=== PATIENT | female | born 1960 | race Hispanic/Latino ===

== ENCOUNTER 2018-10-17 13:36 | Inpatient (IN) | payer MEDICARE ==
[2018-10-17] MEDS ORDERED: ZOFRAN IV ONE (13:51)
[2018-10-17] MEDS ORDERED: MORPHINE IV ONE (13:52)
--- NOTE | 2018-10-17 13:57 | Emergency Department Report ---
HPI - General Chief Complaint: GI Bleed Time Seen by Provider: 10/17/18 13:47 - HPI HPI: 58-year-old female presents to the emergency Department with complaints of back and leg pain, swallowing and rectal bleeding. The rectal bleeding is the main reason she came in and she says that has been going on for the past 1-2 months. However it has worsened recently. She says that when she goes to urinate and then stands up that bright red blood and sometimes clots from the rectum. She denies any rectal pain. However over the past week she complains of severe back and bilateral leg pain. The patient has a past medical history of COPD, chronic kidney disease with previous nephrectomy, PE/DVT on anticoagulation. She is a tobacco smoker. She also has a history of previous alcoholic gastritis however she denies any recent alcohol use she has a primary care physician through the [facility] system. ED Past Medical Hx - Past Medical History Previous Medical History?: Yes Hx Hypertension: Yes (takes clonidine) Hx Congestive Heart Failure: No Hx Diabetes: No Hx Deep Vein Thrombosis: Yes Hx Pulmonary Embolism: Yes Hx Asthma: No Hx COPD: Yes - Surgical History Past Surgical History?: Yes Additional Surgical History: Tonsilectomy - Social History Smoking Status: Current Every Day Smoker Substance Use Type: Alcohol - Medications Home Medications: Home Medications Medication Instructions Recorded Confirmed Last Taken Type Albuterol Sulfate [Ventolin Hfa] 18 gm IH PRN 10/17/18 10/17/18 Unknown History Dextran 70/Hypromellose/Pf 1 - 2 drop OP PRN 10/17/18 10/17/18 Unknown History [Artificial Tears Drops 1%/0.3%] Quetiapine Fumarate [Seroquel] 300 mg PO QHS 10/17/18 10/17/18 Unknown History Rivaroxaban [Xarelto] 20 mg PO QDAY 10/17/18 10/17/18 Unknown History Rosuvastatin Calcium [Crestor] 10 mg PO DAILY 10/17/18 10/17/18 Unknown History amLODIPine [Norvasc] 10 mg PO DAILY 10/17/18 10/17/18 Unknown History traZODone [Desyrel] 50 mg PO QHS 10/17/18 10/17/18 Unknown History ED Review of Systems ROS: Stated complaint: BACK PAIN/RECTAL BLEEDING Other details as noted in HPI Comment: All other systems reviewed and negative Constitutional: denies: chills, fever Eyes: denies: eye pain, vision change ENT: denies: ear pain, dental pain Respiratory: denies: cough, shortness of breath Cardiovascular: denies: chest pain, palpitations Gastrointestinal: other (rectal bleeding). denies: nausea, vomiting Genitourinary: denies: dysuria, discharge Musculoskeletal: back pain, arthralgia, myalgia Skin: denies: rash, lesions Neurological: denies: headache, weakness, numbness Physical Exam - Physical Exam Vital Signs: Vital Signs 10/17/18 13:46 Temperature 97.5 F L Pulse Rate 99 H Respiratory 22 Rate Blood Pressure 110/69 O2 Sat by Pulse 91 Oximetry Physical Exam: GENERAL: The patient is well-developed well-nourished. HEENT: Normocephalic. Atraumatic. Patient has moist mucous membranes. EYES: Extraocular motions are intact. Pupils are equal and reactive to light bilaterally. NECK: Supple. Trachea is midline. CHEST/LUNGS: Clear to auscultation. There is no respiratory distress noted. HEART/CARDIOVASCULAR: Regular. There is no tachycardia. There is no obvious murmur. ABDOMEN: Abdomen is soft. Mild generalized tenderness to palpation. Patient has normal bowel sounds. Obese habitus. SKIN: Skin is warm and dry. NEURO: The patient is awake, alert, and oriented. The patient is cooperative. The patient has no focal neurologic deficits. The patient has normal speech. MUSCULOSKELETAL: There is no tenderness or deformity. There is no limitation range of motion. There is no evidence of acute injury. RECTAL: There is a nonthrombosed hemorrhoid at the 6 o'clock position. Gross blood seen on examination that is positive on guaiac testing. ED Course Vital Signs 10/17/18 13:46 Temperature 97.5 F L Pulse Rate 99 H Respiratory 22 Rate Blood Pressure 110/69 O2 Sat by Pulse 91 Oximetry - Consultations Consultation #1: I spoke with the assembler [employer] commanding officer traffic division, Dr. lei, and he is aware of the intent for a GI consult secondary to the rectal bleeding on anticoagulation. 10/17/18 18:43 ED Medical Decision Making - Lab Data Result diagrams: 10/17/18 14:09 10/17/18 14:09 - Radiology Data Radiology results: report reviewed ABDOMINAL SERIES: History: Abdominal pain. Findings: No recent comparison. Single view of the chest demonstrates prominent bronchovascular markings in both lower lobes. Trace right pleural effusion is also suspected. Heart size is within normal limits. Supine and upright views of the abdomen demonstrate 1 or 2 mildly dilated loops of bowel in the left abdomen measuring up to 4.5 cm in diameter. No significant air-fluid levels are identified on the upright image. Surgical clips are noted in the left upper quadrant and left lower quadrant, correlate with history. An IVC filter is in position at the level of L3-4. IMPRESSION: A few mildly dilated loops of small bowel are identified in the left abdomen. A low-grade partial obstruction is difficult to exclude. Trace right pleural effusion. Transcribed By: TTR Dictated By: KOLBY GARRETT JR, MD Electronically Authenticated By: KOLBY GARRETT JR, MD Signed Date/Time: 10/17/18 1449 PROCEDURE: CT ABDOMEN PELVIS WO CON TECHNIQUE: Axial helical imaging through the abdomen and pelvis with sagittal and coronal reformatted images obtained. HISTORY: Abd pain, GI bleed, abnormal x-ray COMPARISONS: X-ray abdomen and pelvis also performed today. The report of that study is not available for review at the time of this dictation. FINDINGS: The lung bases are notable for pulmonary consolidation in the lower lobes bilaterally. Atelectasis versus infiltrates versus combination of both. There appears to be a small right pleural fluid collection. The liver, spleen, pancreas are unremarkable. The gallbladder is moderately distended and unremarkable. There are bilateral adrenal gland masses that measure approximately 2.5 cm in size. The Hounsfield units are most suggestive of adenomas. The left kidney is absent. The right kidney is hypertrophic but otherwise unremarkable. There is no evidence of hydronephrosis nor urinary tract calculi. The bowel is normal caliber. There is no evidence of pneumoperitoneum or free fluid. The abdominal aorta is normal caliber. There is no evidence of intra-abdominal adenopathy. Infrarenal IVC filter is present. The urinary bladder is mildly distended and unremarkable. The uterus and adnexa are unremarkable. The bony structures are notable for degenerative disc endplate change at the L5- S1 level and degenerative facet change in the lower lumbar spine. IMPRESSION: 1. No evidence of an acute intra-abdominal process. 2. Status post left nephrectomy. 3. Bilateral adrenal adenomas. 4. Infrarenal IVC filter. 5. Spondylitic changes lower lumbar spine. 6. Areas of atelectasis versus infiltrate both lung bases with small right pleural fluid collection. . This document is electronically signed by Dee Rubi MD., October 17 2018 05:35:00 PM ET Transcribed By: ED Dictated By: DEE RUBI MD Electronically Authenticated By: DEE RUBI MD Signed Date/Time: 10/17/18 8013 - Medical Decision Making Patient presents to the emergency department with a complaint of some rectal bleeding, abdominal discomfort. Patient's labs show a hemoglobin of 12, platelets of about 100. She has severe renal failure. She has a history of a nephrectomy from about 4 years ago but the previous labs that we have show no renal insufficiency at that time. On rectal examination she has a nonthrombosed hemorrhoid and some gross blood seen. Patient had some transient hypotension but that has improved. She will be admitted to the hospital for further evaluation, GI consult, renal consult, and has been accepted for admission by the hospitalist, Dr. Griffin. - Differential Diagnosis malignancy, diverticulosis, colitis, hemorrhoids Critical Care Time: No Critical care attestation.: If time is entered above; I have spent that time in minutes in the direct care of this critically ill patient, excluding procedure time. ED Disposition Clinical Impression: End stage renal disease GI bleed Qualifiers: GI bleed type/associated pathology: unspecified gastrointestinal hemorrhage type Qualified Code(s): K92.2 - Gastrointestinal hemorrhage, unspecified Disposition: OP ADMIT IP TO THIS HOSP Is pt being admited?: Yes Condition: Fair Time of Disposition: 18:45
[2018-10-17 14:36] LABS: Hemoglobin 12.2 gm/dl (10.1-14.3); Mean Corpuscular HGB Conc 34 % (30-34); Mean Corpuscular Volume 103 fl (79-97); Platelet Count 101 K/mm3 (140-440); Red Blood Count 3.51 M/mm3 (3.65-5.03); Red Cell Distribution Width 25.6 % (13.2-15.2)
[2018-10-17 14:44] LABS: INR 1.16 (0.87-1.13)
--- NOTE | 2018-10-17 14:53 | XRay Report ---
ABDOMINAL SERIES: History: Abdominal pain. Findings: No recent comparison. Single view of the chest demonstrates prominent bronchovascular markings in both lower lobes. Trace right pleural effusion is also suspected. Heart size is within normal limits. Supine and upright views of the abdomen demonstrate 1 or 2 mildly dilated loops of bowel in the left abdomen measuring up to 4.5 cm in diameter. No significant air-fluid levels are identified on the upright image. Surgical clips are noted in the left upper quadrant and left lower quadrant, correlate with history. An IVC filter is in position at the level of L3-4. IMPRESSION: A few mildly dilated loops of small bowel are identified in the left abdomen. A low-grade partial obstruction is difficult to exclude. Trace right pleural effusion.
[2018-10-17 14:54] LABS: Albumin 3.5 g/dL (3.9-5); Calcium 7.8 mg/dL (8.4-10.2)
--- NOTE | 2018-10-17 16:25 | History and Physical Report ---
History of Present Illness Chief complaint: Im bleeding, and History of present illness: 58 YO Female with HTN, MO, Obesity Hypoventilation, DVT/PE S/P IVC Filter Placement on Therapeutic Anticoagulation with Xarelto, COPD, Nicotine Dependence, RCC S/P Nephrectomy, Chronic Pain Syndrome, ETOH Abuse but denies any etoh use in past 6 months, ETOH Gastritis presents to ED for evaluation. Pt states that she has experienced rectal bleeding over the past 6 weeks with worsening symptoms over the past 2 weeks. Pt states that she sometimes passes blood clots from her rectum over the past 2 weeks. Pt unable to quantify the number of episodes. Pt also acknowledges leg weakness, and deconditioning. Pt is currently unable to conduct activities of daily living due to weakness. Pt also reports Orthopnea/PND, Decreased exercise tolerance, Shortness of Breath, edema, and "just not feeling well". EMS notified, and upon arrival the patient was found to be in distress, and transported to [facility]. Pt seen and evaluated in ED and found to have symptoms consistent with GI Bleed, CHF Decompensation, Hyponatremia Syndrome, Metabolic acidosis, as well Acute Renal Failure/ESRD, Acute Hypoxemic respiratory Failure. Pt initiated on supplemental oxygen and supportive care in ED with improvement in symptoms. Pt admitted to IMCU. Pt denies fever, chills, CP, Palpitations, NVD, Trauma, Skin rash, prolonged travel/immobility, unilateral leg swelling, calf pain, productive cough,ingestion of food/water from new/different sources. Cardiology consulted in ED, GI consulted in ED, Nephrology consulted in ED. Previous admission on reviewed. All listed medication reconciled at time of admission. Past History Past Medical History: COPD, DVT, hypertension, pulmonary embolism Past Surgical History: total knee replacement, Other (tubal ligation, IVC placement, Nephrectomy) Social history: , smoking Family history: hypertension Medications and Allergies Allergies Allergy/AdvReac Type Severity Reaction Status Date / Time [employer] Allergy Swelling Uncoded 03/22/14 15:42 IVP DYE Allergy Itching Uncoded 03/22/14 15:42 Home Medications Medication Instructions Recorded Confirmed Last Taken Type Albuterol Sulfate [Ventolin Hfa] 18 gm IH PRN 10/17/18 10/17/18 Unknown History Dextran 70/Hypromellose/Pf 1 - 2 drop OP PRN 10/17/18 10/17/18 Unknown History [Artificial Tears Drops 1%/0.3%] Quetiapine Fumarate [Seroquel] 300 mg PO QHS 10/17/18 10/17/18 Unknown History Rivaroxaban [Xarelto] 20 mg PO QDAY 10/17/18 10/17/18 Unknown History Rosuvastatin Calcium [Crestor] 10 mg PO DAILY 10/17/18 10/17/18 Unknown History amLODIPine [Norvasc] 10 mg PO DAILY 10/17/18 10/17/18 Unknown History traZODone [Desyrel] 50 mg PO QHS 10/17/18 10/17/18 Unknown History Review of Systems Constitutional: weakness, no weight loss, no weight gain, no fever, no sweats Ears, nose, mouth and throat: no ear pain, no ear discharge, no tinnitis, no decreased hearing, no nose pain, no nasal congestion Breasts: no change in shape, no swelling, no mass Cardiovascular: no chest pain, no orthopnea, no palpitations, no rapid/irregular heart beat, no edema, no syncope Respiratory: no cough, no cough with sputum, no shortness of breath Gastrointestinal: BRBPR, no abdominal pain, no vomiting, no diarrhea, no constipation Genitourinary Female: no pelvic pain, no flank pain, no menorrhagia, no dysuria Rectal: no pain, no incontinence, no bleeding Musculoskeletal: no neck stiffness, no neck pain, no shooting arm pain, no arm numbness/tingling, no low back pain, no leg numbness/tingling Integumentary: no rash, no pruritis, no redness, no sores, no wounds, no boils Neurological: no head injury, no transient paralysis, no paralysis, no numbness Psychiatric: no anxiety, no memory loss, no change in sleep habits, no sleep disturbances, no insomnia, no change in appetite, no suicidal ideation Endocrine: no cold intolerance, no heat intolerance, no polyphagia, no excessive thirst, no polydipsia Hematologic/Lymphatic: no easy bruising, no easy bleeding Allergic/Immunologic: no urticaria, no allergic rhinitis, no wheezing Exam - Constitutional Vitals: Temp Pulse Resp BP Pulse Ox 97.5 F L 91 H 14 107/68 96 10/17/18 13:46 10/17/18 15:17 10/17/18 15:17 10/17/18 15:17 10/17/18 15:17 General appearance: Present: mild distress - EENT Eyes: Present: PERRL ENT: hearing intact, clear oral mucosa - Neck Neck: Present: supple, normal ROM - Respiratory Respiratory effort: labored Respiratory: bilateral: diminished, rhonchi - Cardiovascular Heart Sounds: Present: S1 & S2. Absent: rub, click - Extremities Extremity abnormal: edema Peripheral Pulses: within normal limits - Abdominal General gastrointestinal: Present: soft, non-tender, non-distended, normal bowel sounds Female genitourinary: Present: normal - Integumentary Integumentary: Present: clear, warm, dry - Musculoskeletal Musculoskeletal: generalized weakness - Psychiatric Psychiatric: appropriate mood/affect, intact judgment & insight - Neurologic Neurologic: CNII-XII intact, moves all extremities Results - Labs CBC & Chem 7: 10/18/18 03:19 10/18/18 03:19 Labs: Abnormal lab results 10/17/18 10/17/18 10/17/18 Range/Units 14:09 14:09 14:09 RBC 3.51 L (3.65-5.03) M/mm3 MCV 103 H (79-97) fl MCH 35 H (28-32) pg RDW 25.6 H (13.2-15.2) % Plt Count 101 L (140-440) K/mm3 PT 15.5 H (12.2-14.9) Sec. INR 1.16 H (0.87-1.13) Sodium 135 L (137-145) mmol/L Chloride 95.2 L (98-107) mmol/L Carbon Dioxide 16 L (22-30) mmol/L BUN 45 H (7-17) mg/dL Creatinine 6.7 H (0.7-1.2) mg/dL Glucose 108 H (65-100) mg/dL Calcium 7.8 L (8.4-10.2) mg/dL NT-Pro-B Natriuret Pep (0-900) pg/mL Total Protein 5.9 L (6.3-8.2) g/dL Albumin 3.5 L (3.9-5) g/dL Lipase 66 H (13-60) units/L 10/17/18 Range/Units 14:09 RBC (3.65-5.03) M/mm3 MCV (79-97) fl MCH (28-32) pg RDW (13.2-15.2) % Plt Count (140-440) K/mm3 PT (12.2-14.9) Sec. INR (0.87-1.13) Sodium (137-145) mmol/L Chloride (98-107) mmol/L Carbon Dioxide (22-30) mmol/L BUN (7-17) mg/dL Creatinine (0.7-1.2) mg/dL Glucose (65-100) mg/dL Calcium (8.4-10.2) mg/dL NT-Pro-B Natriuret Pep 1582 H (0-900) pg/mL Total Protein (6.3-8.2) g/dL Albumin (3.9-5) g/dL Lipase (13-60) units/L Assessment and Plan - Patient Problems (1) CHF (congestive heart failure) Current Visit: Yes Status: Acute Qualifiers: Heart failure type: systolic Heart failure chronicity: acute Qualified Code(s): I50.21 - Acute systolic (congestive) heart failure Plan to address problem: Admit to IMCU, Cardiology consulted in ED, Strict I/O, daily weight, BNP, Echo, chest x ray, pulse oximetry, afterload reduction, blood pressure control, monitor uop q shift, monitor fluid balance, diuresis as tolerated. (2) Acidosis Current Visit: Yes Status: Acute Plan to address problem: supportive care, gentle IVF resuscitation as tolerated, encourage limited free water intake, repeat bmp, treat renal failure (3) GI bleed Current Visit: Yes Status: Acute Qualifiers: GI bleed type/associated pathology: unspecified gastrointestinal hemorrhage type Qualified Code(s): K92.2 - Gastrointestinal hemorrhage, unspecified Plan to address problem: GI consulted in ED, IV ppi therapy, no transfusion at this time, HGB stable, repeat cbc. endoscopy as per GI team. (4) Alcoholic gastritis Current Visit: No Status: Acute Qualifiers: Gastritis bleeding: presence of bleeding unspecified Plan to address problem: IV ppi therapy, ETOh cessation, supportive care, CT Abdomen pelvis, pain control, diet as tolerated (5) Hyponatremia syndrome Current Visit: Yes Status: Acute Plan to address problem: gentil IVF resuscitation therapy, repeat serum sodium, monitor uop q shift, nephrology consulted. (6) ARF (acute renal failure) with tubular necrosis Current Visit: Yes Status: Acute Plan to address problem: Urine electrolytes, Renal ultrasound, monitor uop q shift, nephrology consulted, repeat bmp, monitor serum creatnine. (7) ARF (acute respiratory failure) Current Visit: Yes Status: Acute Qualifiers: Respiratory failure complication: hypoxia Qualified Code(s): J96.01 - Acute respiratory failure with hypoxia Plan to address problem: Supplemental oxygen, nebulizer therapy, chest x ray, pulse oximetry, NIPPV as clinically indicated, (8) Debility Current Visit: Yes Status: Acute Plan to address problem: PT consulted, CAse management consulted for DC Planning/placement (9) UTI (urinary tract infection) Current Visit: Yes Status: Acute Qualifiers: Encounter type: initial encounter Plan to address problem: IV antibiotic therapy, urinalysis(pending at time of admission), CBC (10) DVT prophylaxis Current Visit: Yes Status: Acute Plan to address problem: SCD to BLE while in bed, Hold chemical prophylaxis for acute GI bleeding
[2018-10-17] MEDS ORDERED: PROVENTIL IH PRN (16:26)
[2018-10-17] MEDS ORDERED: SODIUM CHLORIDE FLUSH SYRINGE 10 ML IV PRN (16:26)
[2018-10-17] MEDS ORDERED: DEXTRAN OP SCH (16:30)
[2018-10-17] MEDS ORDERED: HYPROMELLOSE OP SCH (16:30)
[2018-10-17 17:17] LABS: Basophils % (Manual) 0 % (0.0-1.8); Eosinophils % (Manual) 0 % (0.0-4.3); Total Cells Counted 100
[2018-10-17 17:18] LABS: Anisocytosis 2+; Ovalocytes Few; Platelet Estimate Appears Decreased
--- NOTE | 2018-10-17 17:36 | Cat Scan Report ---
PROCEDURE: CT ABDOMEN PELVIS WO CON TECHNIQUE: Axial helical imaging through the abdomen and pelvis with sagittal and coronal reformatte d images obtained. HISTORY: Abd pain, GI bleed, abnormal x-ray COMPARISONS: X-ray abdomen and pelvis also performed today. The report of that study is not available for review at the time of this dictation. FINDINGS: The lung bases are notable for pulmonary consolidation in the lower lobes bilaterally. Atelectasis ve rsus infiltrates versus combination of both. There appears to be a small right pleural fluid collection. The liver, spleen, pancreas are unremarkable. The gallbladder is moderately distended and unremarkable. There are bilateral adrenal gland masses that measure approximately 2.5 cm in size. The Hounsfield un its are most suggestive of adenomas. The left kidney is absent. The right kidney is hypertrophic but otherwise unremarkable. There is no evidence of hydronephrosis n or urinary tract calculi. The bowel is normal caliber. There is no evidence of pneumoperitoneum or free fluid. The abdominal aorta is normal caliber. There is no evidence of intra-abdominal adenopathy. Infrarenal IVC filter is present. The urinary bladder is mildly distended and unremarkable. The uterus and adnexa are unremarkable. The bony structures are notable for degenerative disc endplate change at the L5-S1 level and degenera tive facet change in the lower lumbar spine. IMPRESSION: 1. No evidence of an acute intra-abdominal process. 2. Status post left nephrectomy. 3. Bilateral adrenal adenomas. 4. Infrarenal IVC filter. 5. Spondylitic changes lower lumbar spine. 6. Areas of atelectasis versus infiltrate both lung bases with small right pleural fluid collection. . This document is electronically signed by Dee Rubi MD., October 17 2018 05:35:00 PM ET
[2018-10-17 17:41] LABS: Free T4 (Free Thyroxine) 0.52 ng/dL (0.76-1.46); Hepatitis B Surface Antigen Non-Reactive (Negative); Hepatitis C Virus Antibody Non-Reactive (NonReactive)
--- NOTE | 2018-10-17 17:47 | Gastroenterology Consultation ---
History of Present Illness - Reason for Consult Consult date: 10/17/18 GI Bleed Requesting physician: JHOAN VIGIL - History of Present Illness The patient is a 58 yo female who came to the ER for 1-3 months of rectal bleeding, and weakness. Her hct is WNL here, but she had gross blood in her stools on exam. She has a hx of GI bleeding in 2013 (EGD showed antral ulcers) but a colonoscopy last year at [facility] was unremarkable. She does take xarelto daily for a hx of DVT/PE, and she is also a heavy drinker, and in addition takes ibuprofen daily, without GI prophylaxis. She denies hematemesis, but does have intermittent dyspepsia, for which she takes OTC zantac, tums, etc. She also has acute renal insuff on chronic kidney disease, and presumably has coagulopathy from that as well. She is a heavy smoker with COPD, and feels "swollen all over" with moderate edema. She has no severe abdominal pain, but does feel bloated. Past History Past Medical History: cancer (RCC, s/p nephrectomy; ), COPD, DVT, hypertension, pulmonary embolism (with IVC in place), other (Psychiatric disorder NOS) Past Surgical History: tonsillectomy, Other (Nephrectomy) Social history: smoking, alcohol abuse Family history: no significant family history Medications and Allergies Allergies Allergy/AdvReac Type Severity Reaction Status Date / Time TORRIE INHIBITOR Allergy Swelling Uncoded 03/22/14 15:42 IVP DYE Allergy Itching Uncoded 03/22/14 15:42 Home Medications Medication Instructions Recorded Confirmed Last Taken Type Albuterol Sulfate [Ventolin Hfa] 18 gm IH PRN 10/17/18 10/17/18 Unknown History Dextran 70/Hypromellose/Pf 1 - 2 drop OP PRN 10/17/18 10/17/18 Unknown History [Artificial Tears Drops 1%/0.3%] Quetiapine Fumarate [Seroquel] 300 mg PO QHS 10/17/18 10/17/18 Unknown History Rivaroxaban [Xarelto] 20 mg PO QDAY 10/17/18 10/17/18 Unknown History Rosuvastatin Calcium [Crestor] 10 mg PO DAILY 10/17/18 10/17/18 Unknown History amLODIPine [Norvasc] 10 mg PO DAILY 10/17/18 10/17/18 Unknown History traZODone [Desyrel] 50 mg PO QHS 10/17/18 10/17/18 Unknown History Active Meds: Active Medications Albuterol (Proventil) 2.5 mg IH Q3HRT PRN PRN Reason: Shortness Of Breath Amlodipine Besylate (Norvasc) 10 mg PO DAILY [facility] Atorvastatin Calcium (Lipitor) 20 mg PO QHS [facility] Miscellaneous Medication (Dextran 70/Hypromellose/Pf [Artificial Tears Drops 1%/0.3%]) 1 drop OP PRN [facility] Pantoprazole Sodium (Protonix) 40 mg IV DAILY [facility] Quetiapine Fumarate (Seroquel) 300 mg PO QHS [facility] Sodium Chloride (Sodium Chloride Flush Syringe 10 Ml) 10 ml IV BID [facility] Sodium Chloride (Sodium Chloride Flush Syringe 10 Ml) 10 ml IV PRN PRN PRN Reason: LINE FLUSH Trazodone HCl (Desyrel) 50 mg PO QHS [facility] I HAVE REVIEWED AND RECONCILED MEDICATIONS Review of Systems - Review of Systems All systems: negative (as noted in the HPI) Exam - Constitutional Vital Signs: Temp Pulse Resp BP Pulse Ox 97.5 F L 91 H 14 107/68 96 10/17/18 13:46 10/17/18 15:17 10/17/18 15:17 10/17/18 15:17 10/17/18 15:17 General appearance: mild distress ((respiratory)) - EENT Eyes: PERRL, EOM intact ENT: hearing intact, clear oral mucosa, poor dentition, no thrush - Neck Neck: supple, normal ROM - Respiratory Respiratory effort: normal Respiratory: bilateral: wheezing - Cardiovascular Rhythm: regular Heart Sounds: Present: S1 & S2 Extremities: no ischemia Extremity abnormal: edema (1+ dependent) - Gastrointestinal General gastrointestinal: Present: soft, non-tender, non-distended - Integumentary Integumentary: Present: clear, warm, dry - Neurologic Neurological: alert and oriented x3 - Labs CBC & Chem 7: 10/17/18 14:09 10/17/18 14:09 Lab Results: Laboratory Results - last 24 hr 10/17/18 10/17/18 10/17/18 14:09 14:09 14:09 WBC 5.1 RBC 3.51 L Hgb 12.2 Hct 36.0 MCV 103 H MCH 35 H MCHC 34 RDW 25.6 H Plt Count 101 L Add Manual Diff Complete Total Counted 100 Seg Neuts % (Manual) 74.0 H Band Neutrophils % 0 Lymphocytes % (Manual) 14.0 Reactive Lymphs % (Man) 1.0 Monocytes % (Manual) 10.0 H Eosinophils % (Manual) 0 Basophils % (Manual) 0 Metamyelocytes % 1.0 Myelocytes % 0 Promyelocytes % 0 Blast Cells % 0 Nucleated RBC % Not Reportable Seg Neutrophils # Man 3.8 Band Neutrophils # 0.0 Lymphocytes # (Manual) 0.7 L Abs React Lymphs (Man) 0.1 Monocytes # (Manual) 0.5 Eosinophils # (Manual) 0.0 Basophils # (Manual) 0.0 Metamyelocytes # 0.1 Myelocytes # 0.0 Promyelocytes # 0.0 Blast Cells # 0.0 WBC Morphology Not Reportable Hypersegmented Neuts Not Reportable Hyposegmented Neuts Not Reportable Hypogranular Neuts Not Reportable Smudge Cells Not Reportable Toxic Granulation Not Reportable Toxic Vacuolation Not Reportable Dohle Bodies Not Reportable Pelger-Huet Anomaly Not Reportable Cece Rods Not Reportable Platelet Estimate Appears decreased Clumped Platelets Not Reportable Plt Clumps, EDTA Not Reportable Large Platelets Not Reportable Giant Platelets Not Reportable Platelet Satelliting Not Reportable Plt Morphology Comment Not Reportable RBC Morphology Not Reportable Dimorphic RBCs Not Reportable Polychromasia Not Reportable Hypochromasia Not Reportable Poikilocytosis Not Reportable Anisocytosis 2+ Microcytosis Not Reportable Macrocytosis Not Reportable Spherocytes Not Reportable Pappenheimer Bodies Not Reportable Sickle Cells Not Reportable Target Cells Not Reportable Tear Drop Cells Not Reportable Ovalocytes Few Helmet Cells Not Reportable [place] Bodies Not Reportable [place] Rings Not Reportable Tish Cells Not Reportable Bite Cells Not Reportable Crenated Cell Not Reportable Elliptocytes Not Reportable Acanthocytes (Spur) Not Reportable Rouleaux Not Reportable Hemoglobin C Crystals Not Reportable Schistocytes Not Reportable Malaria parasites Not Reportable Bigg Bodies Not Reportable Hem Pathologist Commnt No PT 15.5 H INR 1.16 H APTT 28.0 Sodium 135 L Potassium 3.6 Chloride 95.2 L Carbon Dioxide 16 L Anion Gap 27 BUN 45 H Creatinine 6.7 H Estimated GFR 6 BUN/Creatinine Ratio 7 Glucose 108 H Calcium 7.8 L Total Bilirubin 0.50 AST 17 ALT 10 Alkaline Phosphatase 81 Troponin T NT-Pro-B Natriuret Pep Total Protein 5.9 L Albumin 3.5 L Albumin/Globulin Ratio 1.5 Lipase 66 H TSH Free T4 Hepatitis A IgM Ab Hep Bs Antigen Hep B Core IgM Ab Hepatitis C Antibody Blood Type Antibody Screen 10/17/18 10/17/18 10/17/18 14:09 14:09 14:09 WBC RBC Hgb Hct MCV MCH MCHC RDW Plt Count Add Manual Diff Total Counted Seg Neuts % (Manual) Band Neutrophils % Lymphocytes % (Manual) Reactive Lymphs % (Man) Monocytes % (Manual) Eosinophils % (Manual) Basophils % (Manual) Metamyelocytes % Myelocytes % Promyelocytes % Blast Cells % Nucleated RBC % Seg Neutrophils # Man Band Neutrophils # Lymphocytes # (Manual) Abs React Lymphs (Man) Monocytes # (Manual) Eosinophils # (Manual) Basophils # (Manual) Metamyelocytes # Myelocytes # Promyelocytes # Blast Cells # WBC Morphology Hypersegmented Neuts Hyposegmented Neuts Hypogranular Neuts Smudge Cells Toxic Granulation Toxic Vacuolation Dohle Bodies Pelger-Huet Anomaly Cece Rods Platelet Estimate Clumped Platelets Plt Clumps, EDTA Large Platelets Giant Platelets Platelet Satelliting Plt Morphology Comment RBC Morphology Dimorphic RBCs Polychromasia Hypochromasia Poikilocytosis Anisocytosis Microcytosis Macrocytosis Spherocytes Pappenheimer Bodies Sickle Cells Target Cells Tear Drop Cells Ovalocytes Helmet Cells [place] Bodies [place] Rings [place] Cells Bite Cells Crenated Cell Elliptocytes Acanthocytes (Spur) Rouleaux Hemoglobin C Crystals Schistocytes Malaria parasites Bigg Bodies Hem Pathologist Commnt PT INR APTT Sodium Potassium Chloride Carbon Dioxide Anion Gap BUN Creatinine Estimated GFR BUN/Creatinine Ratio Glucose Calcium Total Bilirubin AST ALT Alkaline Phosphatase Troponin T < 0.010 NT-Pro-B Natriuret Pep 1582 H Total Protein Albumin Albumin/Globulin Ratio Lipase TSH 1.450 Free T4 0.52 L Hepatitis A IgM Ab Non-reactive Hep Bs Antigen Non-reactive Hep B Core IgM Ab Non-reactive Hepatitis C Antibody Non-reactive Blood Type A POSITIVE Antibody Screen Negative Assessment and Plan - Patient Problems (1) GI bleed Current Visit: Yes Status: Acute Plan to address problem: - Likely recurrent PUD given smoking/NSAID abuse but also gastritis or varices possible given hx of EtOH (no gross EV seen on CT). - Will place on daily protonix, and d/c xarelto/ibuprofen. - EGD tomorrow pending renal status/volume overload. - Transfuse as needed. - Keep NPO for now given possible EGD overnight if decompensates. (2) Alcohol abuse Current Visit: Yes Status: Acute (3) End stage renal disease Current Visit: Yes Status: Acute
[2018-10-17] MEDS ORDERED: PERCOCET 5/325 PO ONE (19:34)
[2018-10-17 19:42] LABS: Creatinine,Urine 137.6 mg/dL (0.1-20.0)
[2018-10-17] MEDS ORDERED: PERCOCET 5/325 ONE (19:44)
[2018-10-17 19:58] LABS: Bacteria,Urine 2+ /HPF (Negative); Bilirubin,Urine NEG (Negative); Blood,Urine SM (Negative); Color,Urine Amber (Yellow); Urobilinogen,Urine < 2.0 mg/dL (<2.0)
[2018-10-17 20:01] LABS: WBC,Urine > 182.0 /HPF (0.0-6.0)
[2018-10-17] MEDS ORDERED: NON-FORMULARY (Quetiapine Fumarate [Seroquel] 300 MG) PO SCH (22:00)
[2018-10-17] MEDS ORDERED: PROTONIX IV SCH (22:00)
[2018-10-17] MEDS: DESYREL PO SCH (23:30)
[2018-10-17] MEDS ORDERED: DESYREL PO ONE (23:33)
[2018-10-17] MEDS: SODIUM CHLORIDE FLUSH SYRINGE 10 ML IV SCH (23:44)
[2018-10-18] MEDS ORDERED: ROBINUL ONE (00:24)
[2018-10-18 03:38] LABS: Hematocrit 32.3 % (30.3-42.9); Hemoglobin 10.8 gm/dl (10.1-14.3); Mean Corpuscular HGB Conc 34 % (30-34); Mean Corpuscular Volume 103 fl (79-97); Red Blood Count 3.14 M/mm3 (3.65-5.03)
[2018-10-18 03:43] LABS: Platelet Count 87 K/mm3 (140-440); Red Cell Distribution Width 25.1 % (13.2-15.2)
[2018-10-18 05:39] LABS: Basophils % (Manual) 0 % (0.0-1.8); Eosinophils % (Manual) 0 % (0.0-4.3); Total Cells Counted 100
[2018-10-18 05:40] LABS: Anisocytosis 1+; Platelet Estimate Appears Decreased
--- NOTE | 2018-10-18 07:11 | Consultation ---
History of Present Illness - Reason for Consult Consult date: 10/18/18 acute renal failure, chronic renal failure - History of Present Illness The patient is 58 YO female with history significant for Obesity, HTN, COPD, DVT / PE s/p IVC filter on Xarelto, Kidney cancer s/p left nephrectomy, Tobacco smoking, Chronic Pain Syndrome, ETOH Abuse and CKD who presented with complaints of rectal bleed intermitently for the past few months. She also reports having chronic back pain. Patient admits using NSAIDs. Denies N, V, D, fever, chills, dysuria, hematuria, abd pain, dizziness, syncope, cp, sob, leg swelling or jaundice. Smokes about 1/2 pack of cigarettes and drinks pint of Vodka atleast every other day. Creatinine was 6.7 with bicarb 16 on admission. Previous creatinine in 2013 was normal at 0.9. Nephrology was consulted for further evaluation. Past History Past Medical History: COPD, DVT, hypertension, pulmonary embolism Past Surgical History: total knee replacement, Other (tubal ligation, IVC placement, Nephrectomy) Social history: , smoking Family history: hypertension Medications and Allergies Allergies Allergy/AdvReac Type Severity Reaction Status Date / Time TORRIE INHIBITOR Allergy Swelling Uncoded 03/22/14 15:42 IVP DYE Allergy Itching Uncoded 03/22/14 15:42 Home Medications Medication Instructions Recorded Confirmed Last Taken Type Albuterol Sulfate [Ventolin Hfa] 18 gm IH PRN 10/17/18 10/17/18 Unknown History Dextran 70/Hypromellose/Pf 1 - 2 drop OP PRN 10/17/18 10/17/18 Unknown History [Artificial Tears Drops 1%/0.3%] Quetiapine Fumarate [Seroquel] 300 mg PO QHS 10/17/18 10/17/18 Unknown History Rivaroxaban [Xarelto] 20 mg PO QDAY 10/17/18 10/17/18 Unknown History Rosuvastatin Calcium [Crestor] 10 mg PO DAILY 10/17/18 10/17/18 Unknown History amLODIPine [Norvasc] 10 mg PO DAILY 10/17/18 10/17/18 Unknown History traZODone [Desyrel] 50 mg PO QHS 10/17/18 10/17/18 Unknown History Active Meds: Active Medications Albuterol (Proventil) 2.5 mg IH Q3HRT PRN PRN Reason: Shortness Of Breath Atorvastatin Calcium (Lipitor) 20 mg PO QHS [facility] Last Admin: 10/17/18 23:30 Dose: 20 mg Documented by: Ceftriaxone Sodium (Rocephin/Ns 1 Gm/50 Ml) 1 gm in 50 mls @ 100 mls/hr IV Q24HR [facility]; Protocol Miscellaneous Medication (Dextran 70/Hypromellose/Pf [Artificial Tears Drops 1%/0.3%]) 1 drop OP PRN [facility] Pantoprazole Sodium (Protonix) 40 mg IV DAILY [facility] Pneumococcal Polyvalent Vaccine (Pneumovax 23) 0.5 ml IM .ONCE ONE Stop: 10/18/18 12:01 Quetiapine Fumarate (Seroquel) 100 mg PO QHS [facility] Quetiapine Fumarate (Seroquel) 200 mg PO QHS [facility] Sodium Chloride (Sodium Chloride Flush Syringe 10 Ml) 10 ml IV BID [facility] Last Admin: 10/17/18 23:44 Dose: 10 ml Documented by: Sodium Chloride (Sodium Chloride Flush Syringe 10 Ml) 10 ml IV PRN PRN PRN Reason: LINE FLUSH Trazodone HCl (Desyrel) 50 mg PO QHS [facility] Last Admin: 10/17/18 23:30 Dose: 50 mg Documented by: Review of Systems Constitutional: no weight loss, no weight gain, no fever, no chills, no anorexia, no poor appetite Breasts: deferred Cardiovascular: no chest pain, no orthopnea, no edema, no syncope, no lighthe adedness, no shortness of breath, no dyspnea on exertion, no leg edema Respiratory: no cough, no hemoptysis, no shortness of breath, no dyspnea on exertion Gastrointestinal: hematochezia, no abdominal pain, no nausea, no vomiting, no diarrhea, no hematemesis Genitourinary Female: no dysuria, no hematuria Rectal: bleeding Musculoskeletal: low back pain, no shooting leg pain, no redness of joints, no gait dysfunction, no prior amputations Integumentary: no rash, no wounds, no jaundice Neurological: no paralysis, no weakness, no headaches, no convulsions, no change in speech, no change in mentation, no confusion, no memory loss, no motor disturbance, no double vision, no loss of vision Exam - Vital Signs Vital signs: Vital Signs Temp Pulse Resp BP Pulse Ox 97.5 F L 99 H 22 110/69 91 10/17/18 13:46 10/17/18 13:46 10/17/18 13:46 10/17/18 13:46 10/17/18 13:46 - General Appearance General appearance: well-developed, well-nourished, appears stated age, obese, other (not in distress) EENT: ATNC, PERRL, hearing intact, vision intact Neck: Present: neck supple, trachea midline Respiratory: Clear to Ascultation Heart: regular, S1S2 Gastrointestinal: Present: normoactive bowel sounds, obese. Absent: tenderness, distended Integumentary: no rash, warm and dry Neurologic: no focal deficit, no asterixis, alert and oriented x3 Musculoskeletal: Present: other (no edema) Results - Lab Results 10/18/18 03:19 10/18/18 03:19 Most recent lab results Calcium 8.0 mg/dL (8.4-10.2) L 10/18/18 03:19 Phosphorus 6.00 mg/dL (2.5-4.5) H 10/18/18 03:19 Magnesium 1.40 mg/dL (1.7-2.3) L 10/18/18 03:19 Urine Creatinine 137.6 mg/dL (0.1-20.0) H 10/17/18 19:30 Urine Sodium 30 mmol/L 10/17/18 19:30 - Image Kidney/bladder ultrasound: other Assessment and Plan 1. Acute kidney injury: Likely vasomotor SULY superimposed on CKD. Unilateral kidney Continue IV fluids. Urine studies results noted. CT abdomen was negative for hydronephrosis. Likely advanced CKD. Monitor renal function. Renal prognosis is guarded to poor. Avoid nephrotoxic agents. Meds dosage based on GFR. Records from [facility] requested. 2. FEN: Metabolic acidosis. Continue IV fluids. 3. GI bleed: Followed by GI. 4. H/o DVT / PE: Monitor. 5. H/o alcohol abuse.
[2018-10-18] MEDS ORDERED: K-DUR PO NR (08:00)
[2018-10-18] MEDS ORDERED: ISOPTO TEARS 0.5% OU PRN (08:00)
[2018-10-18] MEDS ORDERED: MAGNESIUM SULFATE 2GM/50ML 2 GM/50 ML BAG IV ONE (08:00)
[2018-10-18] MEDS ORDERED: PROTONIX IV SCH (10:00)
[2018-10-18] MEDS ORDERED: NORVASC PO SCH (10:00)
[2018-10-18] MEDS ORDERED: NON-FORMULARY (Rosuvastatin Calcium [Crestor] 10 MG) PO SCH (10:00)
[2018-10-18] MEDS ORDERED: AFLURIA QUAD 2018-2019 SYRINGE IM ONE (12:00)
[2018-10-18] MEDS ORDERED: PNEUMOVAX 23 IM ONE (12:00)
[2018-10-18] MEDS: NACL 0.9% 1000 ML 1,000 ML IV SCH ×2 (14:15→16:56)
[2018-10-18] MEDS ORDERED: MORPHINE IV ONE (14:17)
[2018-10-18] MEDS ORDERED: WATER FOR IRRIG STERILE IR ONE (14:33)
--- NOTE | 2018-10-18 14:47 | Consultation ---
History of Present Illness Consult date: 10/18/18 Consult reason: congestive heart failure History of present illness: This is a 58 year old woman with a history of COPD, chronic kidney disease with previous nephrectomy, PE/DVT on Xarelto for oral anticoagulation. Patient presented with complaints of lower GI bleed, back pain and is admitted for further evaluation. GI workup is currently in progress. A cardiac consultation was requested for CHF. Patient denies a prior cardiac history and has not had any recent cardiac workup. There were no reports of unusual shortness of breath, palpitations or lower extremity edema. A chest x- ray reports no evidence of interstitial edema. Past History Past Medical History: COPD, DVT, hypertension, pulmonary embolism Past Surgical History: total knee replacement, Other (tubal ligation, IVC placement, Nephrectomy) Social history: , smoking Family history: hypertension Medications and Allergies Allergies Allergy/AdvReac Type Severity Reaction Status Date / Time TORRIE INHIBITOR Allergy Swelling Uncoded 03/22/14 15:42 IVP DYE Allergy Itching Uncoded 03/22/14 15:42 Home Medications Medication Instructions Recorded Confirmed Last Taken Type Albuterol Sulfate [Ventolin Hfa] 18 gm IH PRN 10/17/18 10/17/18 Unknown History Dextran 70/Hypromellose/Pf 1 - 2 drop OP PRN 10/17/18 10/17/18 Unknown History [Artificial Tears Drops 1%/0.3%] Quetiapine Fumarate [Seroquel] 300 mg PO QHS 10/17/18 10/17/18 Unknown History Rivaroxaban [Xarelto] 20 mg PO QDAY 10/17/18 10/17/18 Unknown History Rosuvastatin Calcium [Crestor] 10 mg PO DAILY 10/17/18 10/17/18 Unknown History amLODIPine [Norvasc] 10 mg PO DAILY 10/17/18 10/17/18 Unknown History traZODone [Desyrel] 50 mg PO QHS 10/17/18 10/17/18 Unknown History Active Meds: Active Medications Albuterol (Proventil) 2.5 mg IH Q3HRT PRN PRN Reason: Shortness Of Breath Artificial Tears (Isopto Tears 0.5%) 1 drops OU Q6H PRN PRN Reason: Dry Eye(s) Atorvastatin Calcium (Lipitor) 20 mg PO QHS [facility] Last Admin: 10/17/18 23:30 Dose: 20 mg Documented by: Ceftriaxone Sodium (Rocephin/Ns 1 Gm/50 Ml) 1 gm in 50 mls @ 100 mls/hr IV Q24HR [facility]; Protocol Sodium Chloride (Nacl 0.9% 1000 Ml) 1,000 mls @ 50 mls/hr IV DIRECT [facility] Last Admin: 10/18/18 14:15 Dose: 50 mls/hr Documented by: Pantoprazole Sodium (Protonix) 40 mg IV DAILY [facility] Potassium Chloride (K-Dur) 40 meq PO ONCE NR Stop: 10/19/18 10:00 Quetiapine Fumarate (Seroquel) 100 mg PO QHS [facility] Quetiapine Fumarate (Seroquel) 200 mg PO QHS [facility] Sodium Chloride (Sodium Chloride Flush Syringe 10 Ml) 10 ml IV BID [facility] Last Admin: 10/17/18 23:44 Dose: 10 ml Documented by: Sodium Chloride (Sodium Chloride Flush Syringe 10 Ml) 10 ml IV PRN PRN PRN Reason: LINE FLUSH Trazodone HCl (Desyrel) 50 mg PO QHS [facility] Last Admin: 10/17/18 23:30 Dose: 50 mg Documented by: Physical Examination Vital Signs Temp Pulse Resp BP Pulse Ox 97.5 F L 99 H 22 110/69 91 10/17/18 13:46 10/17/18 13:46 10/17/18 13:46 10/17/18 13:46 10/17/18 13:46 General appearance: no acute distress HEENT: Positive: PERRL Neck: Positive: trachea midline Cardiac: Positive: Reg Rate and Rhythm Lungs: Positive: Decreased Breath Sounds Neuro: Positive: Grossly Intact Results 10/18/18 03:19 10/18/18 03:19 Cardiac Enzymes 10/17/18 Range/Units 14:09 AST 17 (5-40) units/L Coagulation 10/17/18 Range/Units 14:09 APTT 28.0 (24.2-36.6) Sec. CBC 10/18/18 Range/Units 03: WBC 4.4 L (4.5-11.0) K/mm3 RBC 3.14 L (3.65-5.03) M/mm3 Hgb 10.8 (10.1-14.3) gm/dl Hct 32.3 (30.3-42.9) % Plt Count 87 L (140-440) K/mm3 Comprehensive Metabolic Panel 10/17/18 10/18/18 Range/Units 14:09 03:19 Sodium 135 L 134 L (137-145) mmol/L Potassium 3.6 3.1 L (3.6-5.0) mmol/L Chloride 95.2 L 99.3 (98-107) mmol/L Carbon Dioxide 16 L 20 L (22-30) mmol/L BUN 45 H 46 H (7-17) mg/dL Creatinine 6.7 H 6.8 H (0.7-1.2) mg/dL Glucose 108 H 74 (65-100) mg/dL Calcium 7.8 L 8.0 L (8.4-10.2) mg/dL AST 17 (5-40) units/L ALT 10 (7-56) units/L Alkaline Phosphatase 81 (35-129) units/L Total Protein 5.9 L (6.3-8.2) g/dL Albumin 3.5 L (3.9-5) g/dL Assessment and Plan Acute GI bleed Chronic renal disease with previous nephrectomy PE/DVT on Xarelto for oral anticoagulation Hx of COPD
[2018-10-18] MEDS ORDERED: DIPRIVAN 10 MG/ML IV ONE (15:00)
--- NOTE | 2018-10-18 15:16 | Post Operative Note ---
Pre-op diagnosis: GI Bleed Post-op diagnosis: other (Gastritis/duodenitis) Findings: 1. No blood/clots active 2. Severe erosive antral gastritis and duodenitis, with friability - Cold bx of antrum - Likely source of anemia 3. No varices Procedure: EGD with cold biopsy Anesthesia: MAC Surgeon: RIKA BUSCH Estimated blood loss: minimal Pathology: list (1. Gastric antrum) Specimen disposition: to lab Condition: stable Disposition: floor (Recs: 1. Continue to hold xarelto until 10/20/2018. 2. D/c all NSAIDs, including ibuprofen. 3. MVI and protonix daily. 4. OK to advance diet to regular. 5. Lesions would be low risk to re-bleed; OK to d/c home when hct stable and cleared by Cards/IMS.)
--- NOTE | 2018-10-18 15:28 | Anesthesia Day of Surgery ---
Anesthesia Day of Surgery - Day of Surgery Patient Examined: Yes Patient H&P Reviewed: Yes Patient is NPO: Yes Beta Blockers: No
--- NOTE | 2018-10-18 15:29 | Anesthesia Consultation ---
Anesthesia Consult and Med Hx Date of service: 10/18/18 - Airway Anesthetic Teeth Evaluation: Good ROM Head & Neck: Adequate Mental/Hyoid Distance: Adequate Mallampati Class: Class III Intubation Access Assessment: Probably Good - Pulmonary Exam CTA: Yes - Cardiac Exam Cardiac Exam: No Murmur - Pre-Operative Health Status ASA Pre-Surgery Classification: ASA3 Proposed Anesthetic Plan: MAC - Pulmonary Hx Smoking: Yes (supposedly stopped but patient varifies she still smokes) Hx Asthma: No COPD: Yes Hx Pneumonia: No - Cardiovascular System Hx Hypertension: Yes (takes clonidine) - Central Nervous System Hx Psychiatric Problems: Yes - Endocrine Hx End Stage Renal Disease: No - Other Systems Hx Alcohol Use: Yes (chronic abuse; after drinking got nauseated - coffee ground emesis) Hx Obesity: Yes
--- NOTE | 2018-10-18 17:13 | Progress Note ---
Assessment and Plan Assessment and plan: --Rectal bleeding; GI evaluated the patient, s/p EGD; No blood/clots active Severe erosive antral gastritis and duodenitis, with friability Cold bx of antrum Likely source of anemia No varices Avoid NSAIDs, Protonix, follow-up GI upon discharge --Acute congestive heart failure; unknown ejection fraction Follow echocardiogram, management per cardiology Input output monitoring low-sodium diet --Acute renal failure; tubular necrosis Gentle hydration closely monitor renal function and avoid nephrotoxin, nephrology following --Hypokalemia; replace per protocol and monitor levels --Hypomagnesemia; replace per protocol and monitor levels --Hyponatremia; closely monitor electrolytes and supportive care --Moderate hypoalbuminemia/malnutrition Nutrition supplements and supportive care --DVT prophylaxis; SCD No pharmacologic anticoagulation in view of GI bleeding Follow-up cardiology evaluation and recommendations Possible discharge in 1-2 days if stable Plan of care reviewed with the patient, family member at the bedside and her nurse History Interval history: Patient seen and examined medical records reviewed Admitted with rectal bleeding and underwent EGD Findings reviewed Alert awake oriented 3 Vital signs noted Hospitalist Physical - Constitutional Vitals: Temp Pulse Resp BP Pulse Ox 98.0 F 98 H 14 114/89 85 10/18/18 15:17 10/18/18 16:31 10/18/18 16:31 10/18/18 16:31 10/18/18 16:31 General appearance: Present: no acute distress, well-nourished - EENT Eyes: Present: PERRL, EOM intact - Neck Neck: Present: supple, normal ROM - Respiratory Respiratory effort: normal Respiratory: bilateral: diminished, rales, negative: rhonchi, wheezing - Cardiovascular Rhythm: regular Heart Sounds: Present: S1 & S2 - Extremities Extremities: no ischemia, No edema - Abdominal General gastrointestinal: soft, non-tender, non-distended, normal bowel sounds - Integumentary Integumentary: Present: clear, warm - Psychiatric Psychiatric: appropriate mood/affect, cooperative - Neurologic Neurologic: CNII-XII intact, moves all extremities Results - Labs CBC & Chem 7: 10/18/18 03:19 10/18/18 03:19 Labs: Laboratory Last Values WBC 4.4 K/mm3 (4.5-11.0) L 10/18/18 03:19 RBC 3.14 M/mm3 (3.65-5.03) L 10/18/18 03:19 Hgb 10.8 gm/dl (10.1-14.3) 10/18/18 03:19 Hct 32.3 % (30.3-42.9) 10/18/18 03:19 MCV 103 fl (79-97) H 10/18/18 03:19 MCH 35 pg (28-32) H 10/18/18 03:19 MCHC 34 % (30-34) 10/18/18 03:19 RDW 25.1 % (13.2-15.2) H 10/18/18 03:19 Plt Count 87 K/mm3 (140-440) L 10/18/18 03:19 Add Manual Diff Complete 10/18/18 03:19 Total Counted 100 10/18/18 03:19 Seg Neuts % (Manual) 69.0 % (40.0-70.0) 10/18/18 03:19 Band Neutrophils % 1.0 % 10/18/18 03:19 Lymphocytes % (Manual) 27.0 % (13.4-35.0) 10/18/18 03:19 Reactive Lymphs % (Man) 0 % 10/18/18 03:19 Monocytes % (Manual) 3.0 % (0.0-7.3) 10/18/18 03:19 Eosinophils % (Manual) 0 % (0.0-4.3) 10/18/18 03:19 Basophils % (Manual) 0 % (0.0-1.8) 10/18/18 03:19 Metamyelocytes % 0 % 10/18/18 03:19 Myelocytes % 0 % 10/18/18 03:19 Promyelocytes % 0 % 10/18/18 03:19 Blast Cells % 0 % 10/18/18 03:19 Nucleated RBC % Not Reportable 10/18/18 03:19 Seg Neutrophils # Man 3.0 K/mm3 (1.8-7.7) 10/18/18 03:19 Band Neutrophils # 0.0 K/mm3 10/18/18 03:19 Lymphocytes # (Manual) 1.2 K/mm3 (1.2-5.4) 10/18/18 03:19 Abs React Lymphs (Man) 0.0 K/mm3 10/18/18 03:19 Monocytes # (Manual) 0.1 K/mm3 (0.0-0.8) 10/18/18 03:19 Eosinophils # (Manual) 0.0 K/mm3 (0.0-0.4) 10/18/18 03:19 Basophils # (Manual) 0.0 K/mm3 (0.0-0.1) 10/18/18 03:19 Metamyelocytes # 0.0 K/mm3 10/18/18 03:19 Myelocytes # 0.0 K/mm3 10/18/18 03:19 Promyelocytes # 0.0 K/mm3 10/18/18 03:19 Blast Cells # 0.0 K/mm3 10/18/18 03:19 WBC Morphology Not Reportable 10/18/18 03:19 Hypersegmented Neuts Not Reportable 10/18/18 03:19 Hyposegmented Neuts Not Reportable 10/18/18 03:19 Hypogranular Neuts Not Reportable 10/18/18 03:19 Smudge Cells Not Reportable 10/18/18 03:19 Toxic Granulation Not Reportable 10/18/18 03:19 Toxic Vacuolation Not Reportable 10/18/18 03:19 Dohle Bodies Not Reportable 10/18/18 03:19 Pelger-Huet Anomaly Not Reportable 10/18/18 03:19 Cece Rods Not Reportable 10/18/18 03:19 Platelet Estimate Appears decreased 10/18/18 03:19 Clumped Platelets Not Reportable 10/18/18 03:19 Plt Clumps, EDTA Not Reportable 10/18/18 03:19 Large Platelets Not Reportable 10/18/18 03:19 Giant Platelets Not Reportable 10/18/18 03:19 Platelet Satelliting Not Reportable 10/18/18 03:19 Plt Morphology Comment Not Reportable 10/18/18 03:19 RBC Morphology Not Reportable 10/18/18 03:19 Dimorphic RBCs Not Reportable 10/18/18 03:19 Polychromasia Not Reportable 10/18/18 03:19 Hypochromasia Not Reportable 10/18/18 03:19 Poikilocytosis Not Reportable 10/18/18 03:19 Anisocytosis 1+ 10/18/18 03:19 Microcytosis Not Reportable 10/18/18 03:19 Macrocytosis Not Reportable 10/18/18 03:19 Spherocytes Not Reportable 10/18/18 03:19 Pappenheimer Bodies Not Reportable 10/18/18 03:19 Sickle Cells Not Reportable 10/18/18 03:19 Target Cells Not Reportable 10/18/18 03:19 Tear Drop Cells Not Reportable 10/18/18 03:19 Ovalocytes Not Reportable 10/18/18 03:19 Helmet Cells Not Reportable 10/18/18 03:19 Kaba-[place] Bodies Not Reportable 10/18/18 03:19 Wells Rings Not Reportable 10/18/18 03:19 Timber Cells Not Reportable 10/18/18 03:19 Bite Cells Not Reportable 10/18/18 03:19 Crenated Cell Not Reportable 10/18/18 03:19 Elliptocytes Not Reportable 10/18/18 03:19 Acanthocytes (Spur) Not Reportable 10/18/18 03:19 Rouleaux Not Reportable 10/18/18 03:19 Hemoglobin C Crystals Not Reportable 10/18/18 03:19 Schistocytes Not Reportable 10/18/18 03:19 Malaria parasites Not Reportable 10/18/18 03:19 Bigg Bodies Not Reportable 10/18/18 03:19 Hem Pathologist Commnt No 10/18/18 03:19 PT 15.5 Sec. (12.2-14.9) H 10/17/18 14:09 INR 1.16 (0.87-1.13) H 10/17/18 14:09 APTT 28.0 Sec. (24.2-36.6) 10/17/18 14:09 Sodium 134 mmol/L (137-145) L 10/18/18 03:19 Potassium 3.1 mmol/L (3.6-5.0) L 10/18/18 03:19 Chloride 99.3 mmol/L (98-107) 10/18/18 03:19 Carbon Dioxide 20 mmol/L (22-30) L 10/18/18 03:19 Anion Gap 18 mmol/L 10/18/18 03:19 BUN 46 mg/dL (7-17) H 10/18/18 03:19 Creatinine 6.8 mg/dL (0.7-1.2) H 10/18/18 03:19 Estimated GFR 6 ml/min 10/18/18 03:19 BUN/Creatinine Ratio 7 % 10/18/18 03:19 Glucose 74 mg/dL (65-100) 10/18/18 03:19 Calcium 8.0 mg/dL (8.4-10.2) L 10/18/18 03:19 Phosphorus 6.00 mg/dL (2.5-4.5) H 10/18/18 03:19 Magnesium 1.40 mg/dL (1.7-2.3) L 10/18/18 03:19 Total Bilirubin 0.50 mg/dL (0.1-1.2) 10/17/18 14:09 AST 17 units/L (5-40) 10/17/18 14:09 ALT 10 units/L (7-56) 10/17/18 14:09 Alkaline Phosphatase 81 units/L (35-129) 10/17/18 14:09 Total Creatine Kinase 60 units/L (30-135) 10/18/18 03:19 Troponin T < 0.010 ng/mL (0.00-0.029) 10/17/18 14:09 NT-Pro-B Natriuret Pep 1582 pg/mL (0-900) H 10/17/18 14:09 Total Protein 5.9 g/dL (6.3-8.2) L 10/17/18 14:09 Albumin 3.5 g/dL (3.9-5) L 10/17/18 14:09 Albumin/Globulin Ratio 1.5 % 10/17/18 14:09 Lipase 66 units/L (13-60) H 10/17/18 14:09 TSH 1.450 mlU/mL (0.270-4.200) 10/17/18 14:09 Free T4 0.52 ng/dL (0.76-1.46) L 10/17/18 14:09 PTH Intact 374.5 pg/mL (15-65) H 10/18/18 03:19 Urine Color Gely (Yellow) 10/17/18 19:30 Urine Turbidity Cloudy (Clear) 10/17/18 19:30 Urine pH 7.0 (5.0-7.0) 10/17/18 19:30 Ur Specific [place] 1.015 (1.003-1.030) 10/17/18 19:30 Urine Protein 100 mg/dl mg/dL (Negative) 10/17/18 19:30 Urine Glucose (UA) Neg mg/dL (Negative) 10/17/18 19:30 Urine Ketones Neg mg/dL (Negative) 10/17/18 19:30 Urine Blood Sm (Negative) 10/17/18 19:30 Urine Nitrite Neg (Negative) 10/17/18 19:30 Urine Bilirubin Neg (Negative) 10/17/18 19:30 Urine Urobilinogen < 2.0 mg/dL (<2.0) 10/17/18 19:30 Ur Leukocyte Esterase Lg (Negative) 10/17/18 19:30 Urine WBC (Auto) > 182.0 /HPF (0.0-6.0) H 10/17/18 19:30 Urine RBC (Auto) 9.0 /HPF (0.0-6.0) 10/17/18 19:30 U Epithel Cells (Auto) 9.0 /HPF (0-13.0) 10/17/18 19:30 Urine Bacteria (Auto) 2+ /HPF (Negative) 10/17/18 19:30 Urine Eosinophils None seen (None Seen) 10/17/18 19:30 Urine Creatinine 137.6 mg/dL (0.1-20.0) H 10/17/18 19:30 Urine Sodium 30 mmol/L 10/17/18 19:30 Plasma/Serum Alcohol < 0.01 % (0-0.07) 10/17/18 14:09 Hepatitis A IgM Ab Non-reactive (NonReactive) 10/17/18 14:09 Hep Bs Antigen Non-reactive (Negative) 10/17/18 14:09 Hep B Core IgM Ab Non-reactive (NonReactive) 10/17/18 14:09 Hepatitis C Antibody Non-reactive (NonReactive) 10/17/18 14:09 Blood Type A POSITIVE 10/17/18 14:09 Antibody Screen Negative 10/17/18 14:09 Active Medications - Current Medications Current Medications: Generic Name Dose Route Start Last Admin Trade Name Freq PRN Reason Stop Dose Admin Albuterol 2.5 mg 10/17/18 16:26 Proventil IH Q3HRT PRN Shortness Of Breath Artificial Tears 1 drops 10/18/18 08:00 Isopto Tears 0.5% OU Q6H PRN Dry Eye(s) Atorvastatin Calcium 20 mg 10/17/18 22:00 10/17/18 23:30 Lipitor PO 20 mg QHS CAMRON Administration Ceftriaxone Sodium 1 gm in 50 mls @ 100 mls/hr 10/18/18 05:52 Rocephin/Ns 1 Gm/50 Ml IV Q24HR CAMRON Protocol Sodium Chloride 1,000 mls @ 50 mls/hr 10/18/18 12:00 10/18/18 16:56 Nacl 0.9% 1000 Ml IV 50 mls/hr DIRECT CAMRON Administration Multivitamins/Minerals 1 each 10/19/18 10:00 Theragran-M Tab PO QDAY CAMRON Oxycodone/Acetaminophen 1 tab 10/18/18 16:54 Percocet 5/325 PO Q6H PRN Pain, Moderate (4-6) Pantoprazole Sodium 40 mg 10/19/18 10:00 Protonix PO QDAY CAMRON Potassium Chloride 40 meq 10/18/18 08:00 K-Dur PO 10/19/18 10:00 ONCE NR Quetiapine Fumarate 100 mg 10/18/18 22:00 Seroquel PO QHS CAMRON Quetiapine Fumarate 200 mg 10/18/18 22:00 Seroquel PO QHS [facility]RON Sodium Chloride 10 ml 10/17/18 22:00 10/17/18 23:44 Sodium Chloride Flush Syringe 10 Ml IV 10 ml BID CAMRON Administration Sodium Chloride 10 ml 10/17/18 16:26 Sodium Chloride Flush Syringe 10 Ml IV PRN PRN LINE FLUSH Trazodone HCl 50 mg 10/17/18 22:00 10/17/18 23:30 Desyrel PO 50 mg QHS CAMRON Administration
[2018-10-18] MEDS: ROCEPHIN/NS 1 GM/50 ML 1 GM/50 ML BAG IV SCH (17:29)
[2018-10-18] MEDS: SODIUM CHLORIDE FLUSH SYRINGE 10 ML IV SCH ×2 (17:46→21:10)
--- NOTE | 2018-10-18 20:21 | Operative Report ---
PROCEDURE PERFORMED: Esophagogastroduodenoscopy with cold biopsy. PREOPERATIVE DIAGNOSIS: Gastrointestinal bleeding with anemia. POSTOPERATIVE DIAGNOSES: Severe erosive gastritis and duodenitis. ENDOSCOPIST: Cam Celeste MD INSTRUMENT: [employer] video endoscope. MEDICATIONS: MAC anesthesia by [facility]. COMPLICATIONS: No apparent complications. ESTIMATED BLOOD LOSS: Minimal. SPECIMENS: Gastric antrum. IMPLANTS: None. ASSISTANTS: None. CONDITION AT COMPLETION: Stable. TECHNIQUE: The patient was informed of the risks and benefits of the procedure. She signed the informed consent to proceed. She was placed in the left lateral decubitus position. The above sedative medications were given. Her vital signs remained stable throughout the procedure. The instrument was advanced from the mouth to the second portion of the duodenum under direct visualization. At that point, the bowel was insufflated and the endoscope was slowly withdrawn. FINDINGS: 1. No active bleeding or blood clots present in the upper GI tract. 2. Severe erosive gastritis and duodenitis with severe friability and likely the source of the anemia. ____ cold biopsy was taken of the antrum to rule out H. pylori, but the source is likely alcohol, tobacco, and ibuprofen overuse as combined with daily Xarelto. 3. No evidence of esophageal or gastric varices. RECOMMENDATIONS: 1. Continue to hold Xarelto until 10/20/2018. 2. Discontinue all nonsteroidal anti-inflammatory drugs including ibuprofen. 3. Multivitamin and Protonix daily. 4. Okay to advance diet to regular. 5. The gastritis and duodenitis lesions would be considered low risk to rebleed; it is okay to discharge the patient home when stable and when cleared by the Cardiology and Internal Medicine Service. JOB# [id number] SCOTTIE/NTS
[2018-10-18] MEDS: DESYREL PO SCH (21:09)
[2018-10-19] MEDS: PERCOCET 5/325 PO PRN ×3 (00:58→21:17)
[2018-10-19 05:53] LABS: Hematocrit 31.8 % (30.3-42.9); Hemoglobin 10.7 gm/dl (10.1-14.3); Mean Corpuscular HGB Conc 34 % (30-34); Mean Corpuscular Volume 103 fl (79-97); Red Blood Count 3.09 M/mm3 (3.65-5.03)
[2018-10-19 06:14] LABS: Platelet Count 97 K/mm3 (140-440); Red Cell Distribution Width 25.1 % (13.2-15.2)
[2018-10-19 06:25] LABS: Albumin 2.8 g/dL (3.9-5); Calcium 8.2 mg/dL (8.4-10.2)
--- NOTE | 2018-10-19 09:37 | Progress Note ---
Assessment and Plan 1. Acute kidney injury: Likely vasomotor SULY superimposed on CKD. Unilateral kidney. Likely advanced CKD. Symptoms are likely due to uremia. Continue IV fluids. CT abdomen was negative for hydronephrosis. Monitor renal function. Renal prognosis is guarded to poor. Avoid nephrotoxic agents. Meds dosage based on GFR. Patient require hemodialysis due to suspected uremic symptoms and advanced CKD. Explained the indications, benefits and risks involved in hemodialysis. Verbalized understanding and gave verbal consent to proceed with hemodialysis. Vascular consulted for hemodialysis catheter placement. 2. FEN: Metabolic acidosis. Continue IV fluids. 3. GI bleed: Followed by GI. 4. H/o DVT / PE: Monitor. 5. H/o alcohol abuse. Subjective Date of service: 10/19/18 Interval history: Patient was seen and examined at the bedside. Feeling weak with decreased appetite. Objective - Vital Signs Vital signs: Vital Signs - 12hr 10/18/18 10/18/18 10/18/18 22:00 22:31 23:00 Temperature Pulse Rate 87 90 86 Pulse Rate [ From Monitor] Respiratory 10 L 12 14 Rate Blood Pressure 93/45 83/55 95/61 O2 Sat by Pulse Oximetry 10/18/18 10/19/18 10/19/18 23:31 00:00 00:01 Temperature 98.5 F Pulse Rate 87 85 86 Pulse Rate [ 88 From Monitor] Respiratory 12 11 L 10 L Rate Blood Pressure 95/61 89/62 89/62 O2 Sat by Pulse 92 Oximetry 10/19/18 10/19/18 10/19/18 00:30 01:00 01:31 Temperature Pulse Rate 83 89 89 Pulse Rate [ From Monitor] Respiratory 15 16 14 Rate Blood Pressure 89/62 95/60 95/60 O2 Sat by Pulse Oximetry 10/19/18 10/19/18 10/19/18 02:00 02:31 03:00 Temperature Pulse Rate 93 H 91 H 84 Pulse Rate [ From Monitor] Respiratory 12 9 L 9 L Rate Blood Pressure 101/49 101/49 100/64 O2 Sat by Pulse Oximetry 10/19/18 10/19/18 10/19/18 03:31 04:00 04:31 Temperature Pulse Rate 81 86 88 Pulse Rate [ 87 From Monitor] Respiratory 9 L 12 9 L Rate Blood Pressure 100/64 97/69 100/64 O2 Sat by Pulse 92 Oximetry 10/19/18 10/19/18 10/19/18 05:00 05:31 06:00 Temperature Pulse Rate 89 85 85 Pulse Rate [ From Monitor] Respiratory 14 9 L 9 L Rate Blood Pressure 84/45 97/69 91/54 O2 Sat by Pulse Oximetry 10/19/18 10/19/18 10/19/18 06:31 07:00 07:31 Temperature Pulse Rate 88 90 91 H Pulse Rate [ From Monitor] Respiratory 9 L 10 L 9 L Rate Blood Pressure 91/54 91/54 91/54 O2 Sat by Pulse Oximetry 10/19/18 10/19/18 10/19/18 08:00 08:01 08:45 Temperature Pulse Rate 98 H Pulse Rate [ 87 From Monitor] Respiratory 14 14 Rate Blood Pressure 96/67 O2 Sat by Pulse 92 96 Oximetry - General Appearance General appearance: well-developed, well-nourished, appears stated age, other (not in distress) EENT: ATNC, PERRL, hearing intact, vision intact Neck: supple Respiratory: Present: Clear to Ascultation Cardiology: regular, S1S2, no murmurs Gastrointestinal: normoactive bowel sounds, no tenderness, no distended, obese Integumentary: warm and dry Neurologic: no focal deficit, no asterixis, alert and oriented x3 Musculoskeletal: other (no edema) - Lab 10/19/18 05:01 10/19/18 05:01 Most recent lab results Calcium 8.2 mg/dL (8.4-10.2) L 10/19/18 05:01 Phosphorus 6.00 mg/dL (2.5-4.5) H 10/18/18 03: Magnesium 2.00 mg/dL (1.7-2.3) 10/19/18 05:01 Urine Creatinine 137.6 mg/dL (0.1-20.0) H 10/17/18 19:30 Urine Sodium 30 mmol/L 10/17/18 19:30 Medications & Allergies - Medications Allergies/Adverse Reactions: Allergies TORRIE INHIBITOR Allergy (Uncoded 03/22/14 15:42) Swelling IVP DYE Allergy (Uncoded 03/22/14 15:42) Itching Home Medications: Home Medications Medication Instructions Recorded Confirmed Last Taken Type Albuterol Sulfate [Ventolin Hfa] 18 gm IH PRN 10/17/18 10/17/18 Unknown History Dextran 70/Hypromellose/Pf 1 - 2 drop OP PRN 10/17/18 10/17/18 Unknown History [Artificial Tears Drops 1%/0.3%] Quetiapine Fumarate [Seroquel] 300 mg PO QHS 10/17/18 10/17/18 Unknown History Rivaroxaban [Xarelto] 20 mg PO QDAY 10/17/18 10/17/18 Unknown History Rosuvastatin Calcium [Crestor] 10 mg PO DAILY 10/17/18 10/17/18 Unknown History amLODIPine [Norvasc] 10 mg PO DAILY 10/17/18 10/17/18 Unknown History traZODone [Desyrel] 50 mg PO QHS 10/17/18 10/17/18 Unknown History Active Medications: Generic Name Dose Route Start Last Admin Trade Name Freq PRN Reason Stop Dose Admin Albuterol 2.5 mg 10/17/18 16:26 Proventil IH Q3HRT PRN Shortness Of Breath Artificial Tears 1 drops 10/18/18 08:00 Isopto Tears 0.5% OU Q6H PRN Dry Eye(s) Atorvastatin Calcium 20 mg 10/17/18 22:00 10/18/18 21:08 Lipitor PO 20 mg QHS CAMRON Administration Ceftriaxone Sodium 1 gm in 50 mls @ 100 mls/hr 10/18/18 05:52 10/18/18 17:29 Rocephin/Ns 1 Gm/50 Ml IV 100 mls/hr Q24HR CAMRON Administration Protocol Sodium Chloride 1,000 mls @ 50 mls/hr 10/18/18 12:00 10/18/18 16:56 Nacl 0.9% 1000 Ml IV 50 mls/hr DIRECT CAMRON Administration Multivitamins/Minerals 1 each 10/19/18 10:00 Theragran-M Tab PO QDAY [facility]RON Oxycodone/Acetaminophen 1 tab 10/18/18 16:54 10/19/18 00:58 Percocet 5/325 PO 1 tab Q6H PRN Administration Pain, Moderate (4-6) Pantoprazole Sodium 40 mg 10/19/18 10:00 Protonix PO QDAY CAMRON Potassium Chloride 40 meq 10/18/18 08:00 K-Dur PO 10/19/18 10:00 ONCE NR Quetiapine Fumarate 100 mg 10/18/18 22:00 10/18/18 21:09 Seroquel PO 100 mg QHS CAMRON Administration Quetiapine Fumarate 200 mg 10/18/18 22:00 10/18/18 21:09 Seroquel PO 200 mg QHS CAMRON Administration Sodium Chloride 10 ml 10/17/18 22:00 10/18/18 21:10 Sodium Chloride Flush Syringe 10 Ml IV 10 ml BID CAMRON Administration Sodium Chloride 10 ml 10/17/18 16:26 Sodium Chloride Flush Syringe 10 Ml IV PRN PRN LINE FLUSH Trazodone HCl 50 mg 10/17/18 22:00 10/18/18 21:09 Desyrel PO 50 mg QHS CAMRON Administration
[2018-10-19 09:57] LABS: Anisocytosis 1+; Eosinophils % (Manual) 0 % (0.0-4.3); Total Cells Counted 100
[2018-10-19 09:58] LABS: Macrocytosis Few; Ovalocytes Few; Platelet Estimate Appears Increased; Target Cells Rare
[2018-10-19] MEDS: THERAGRAN-M Tab PO SCH (09:58)
[2018-10-19] MEDS: PROTONIX PO SCH (09:58)
[2018-10-19] MEDS: SODIUM CHLORIDE FLUSH SYRINGE 10 ML IV SCH ×2 (09:59→21:18)
[2018-10-19] MEDS ORDERED: K-DUR PO NR (10:00)
--- NOTE | 2018-10-19 12:56 | Progress Note ---
Assessment and Plan Acute GI bleed with secondary anemia Severe erosive gastritis and duodenitis Acute on Chronic renal disease Acute tubular necrosis with previous nephrectomy PE/DVT on Xarelto for oral anticoagulation s/p IVC filter 10 years ago Echo this admission showing normal LVEF with evidence of RV pressure and volume overload GI recommending to hold anticoagulation until October 20 Hx of COPD Thrombocytopenia Recommendations: Avoid xarelto due to creatinine clearance. Recommend to use warfarin for anticoagulation given renal failure May use eliquis 5 mg po bid if patient start HD No further cardiac work-up is needed Subjective Date of service: 10/19/18 Principal diagnosis: GI bleed Interval history: Patient denies chest pain or shortness of breath No cardiac events on tele Objective Vital Signs Temp Pulse Pulse Resp BP Pulse Ox 10/19/18 08:45 96 10/19/18 08:01 98 H 14 96/67 10/19/18 08:00 87 14 92 10/19/18 07:31 91 H 9 L 91/54 10/19/18 07:00 90 10 L 91/54 10/19/18 06:31 88 9 L 91/54 10/19/18 06:00 85 9 L 91/54 10/19/18 05:31 85 9 L 97/69 10/19/18 05:00 89 14 84/45 10/19/18 04:31 88 9 L 100/64 10/19/18 04:00 86 87 12 97/69 92 10/19/18 03:31 81 9 L 100/64 10/19/18 03:00 84 9 L 100/64 10/19/18 02:31 91 H 9 L 101/49 10/19/18 02:00 93 H 12 101/49 10/19/18 01:31 89 14 95/60 10/19/18 01:00 89 16 95/60 10/19/18 00:30 83 15 89/62 10/19/18 00:01 86 10 L 89/62 10/19/18 00:00 98.5 F 85 88 11 L 89/62 92 10/18/18 23:31 87 12 95/61 10/18/18 23:00 86 14 95/61 10/18/18 22:31 90 12 83/55 10/18/18 22:00 87 10 L 93/45 10/18/18 21:31 97 H 14 92/45 10/18/18 21:00 87 10 L 86/52 10/18/18 20:31 95 H 10 L 91/67 10/18/18 20:01 91 H 15 94/63 10/18/18 20:00 98.1 F 89 11 L 92 10/18/18 19:31 90 11 L 94/63 86 10/18/18 19:00 90 12 94/63 90 10/18/18 18:31 96 H 13 105/70 91 10/18/18 18:00 105 H 11 L 105/70 93 10/18/18 17:31 101 H 15 113/71 84 10/18/18 17:00 95 H 17 113/71 91 10/18/18 16:31 98 H 14 114/89 85 10/18/18 16:17 114/89 10/18/18 16:10 102 H 12 110/77 95 10/18/18 16:00 89 11 L 92 10/18/18 15:32 103 H 15 118/80 95 10/18/18 15:17 98.0 F 108 H 16 93/49 92 10/18/18 14:15 98.6 F 95 H 13 101/65 97 10/18/18 13:31 97 H 17 110/65 83 L 10/18/18 13:00 91 H 12 110/65 91 - Physical Examination HEENT: Positive: PERRL Neck: Positive: neck supple, trachea midline Cardiac: Positive: Reg Rate and Rhythm Lungs: Positive: Normal Exam Neuro: Positive: Grossly Intact - Labs and Meds Cardiac Enzymes 10/19/18 Range/Units 05:01 AST 7 (5-40) units/L CBC 10/19/18 Range/Units 05:01 WBC 4.8 (4.5-11.0) K/mm3 RBC 3.09 L (3.65-5.03) M/mm3 Hgb 10.7 (10.1-14.3) gm/dl Hct 31.8 (30.3-42.9) % Plt Count 97 L (140-440) K/mm3 Comprehensive Metabolic Panel 10/19/18 Range/Units 05:01 Sodium 136 L (137-145) mmol/L Potassium 3.4 L (3.6-5.0) mmol/L Chloride 97.4 L (98-107) mmol/L Carbon Dioxide 19 L (22-30) mmol/L BUN 46 H (7-17) mg/dL Creatinine 6.1 H (0.7-1.2) mg/dL Glucose 94 (65-100) mg/dL Calcium 8.2 L (8.4-10.2) mg/dL AST 7 (5-40) units/L ALT 7 (7-56) units/L Alkaline Phosphatase 66 (35-129) units/L Total Protein 5.2 L (6.3-8.2) g/dL Albumin 2.8 L (3.9-5) g/dL
--- NOTE | 2018-10-19 13:20 | Consultation ---
History of Present Illness - Reason for Consult Consult date: 10/19/18 ATN - History of Present Illness 58 year old female with history significant for Obesity, HTN, COPD, DVT / PE s/p IVC filter on Xarelto, Kidney cancer s/p left nephrectomy, Tobacco smoking, Chronic Pain Syndrome, ETOH Abuse and CKD who presented with complaints of rectal bleed intermitently for the past few months. She also reports having chronic back pain. Patient admits using NSAIDs. Denies N, V, D, fever, chills, dysuria, hematuria, abd pain, dizziness, syncope, cp, sob, leg swelling or jaundice. Smokes about 1/2 pack of cigarettes and drinks pint of Vodka atleast every other day. Creatinine was 6.7 with bicarb 16 on admission. Previous creatinine in 2013 was normal at 0.9. Nephrology was consulted for further evaluation. Creatinine did not improve despite conservative care. Nephrology consulted vascular for permcath placement. R/B/A discussed with patient. Past History Past Medical History: COPD, DVT, hypertension, pulmonary embolism Past Surgical History: total knee replacement, Other (tubal ligation, IVC placement, Nephrectomy) Social history: , smoking Family history: hypertension Medications and Allergies Allergies Allergy/AdvReac Type Severity Reaction Status Date / Time [facility] [employer] Allergy Swelling Uncoded 03/22/14 15:42 IVP DYE Allergy Itching Uncoded 03/22/14 15:42 Home Medications Medication Instructions Recorded Confirmed Last Taken Type Albuterol Sulfate [Ventolin Hfa] 18 gm IH PRN 10/17/18 10/17/18 Unknown History Dextran 70/Hypromellose/Pf 1 - 2 drop OP PRN 10/17/18 10/17/18 Unknown History [Artificial Tears Drops 1%/0.3%] Quetiapine Fumarate [Seroquel] 300 mg PO QHS 10/17/18 10/17/18 Unknown History Rivaroxaban [Xarelto] 20 mg PO QDAY 10/17/18 10/17/18 Unknown History Rosuvastatin Calcium [Crestor] 10 mg PO DAILY 10/17/18 10/17/18 Unknown History amLODIPine [Norvasc] 10 mg PO DAILY 10/17/18 10/17/18 Unknown History traZODone [Desyrel] 50 mg PO QHS 10/17/18 10/17/18 Unknown History Active Meds: Active Medications Albuterol (Proventil) 2.5 mg IH Q3HRT PRN PRN Reason: Shortness Of Breath Artificial Tears (Isopto Tears 0.5%) 1 drops OU Q6H PRN PRN Reason: Dry Eye(s) Atorvastatin Calcium (Lipitor) 20 mg PO QHS [facility] Last Admin: 10/18/18 21:08 Dose: 20 mg Documented by: Ceftriaxone Sodium (Rocephin/Ns 1 Gm/50 Ml) 1 gm in 50 mls @ 100 mls/hr IV Q24HR [facility]; Protocol Last Admin: 10/18/18 17:29 Dose: 100 mls/hr Documented by: Sodium Chloride (Nacl 0.9% 1000 Ml) 1,000 mls @ 100 mls/hr IV DIRECT [facility] Last Admin: 10/18/18 16:56 Dose: 50 mls/hr Documented by: Multivitamins/Minerals (Theragran-M Tab) 1 each PO QDAY [facility] Last Admin: 10/19/18 09:58 Dose: 1 each Documented by: Oxycodone/Acetaminophen (Percocet 5/325) 1 tab PO Q6H PRN PRN Reason: Pain, Moderate (4-6) Last Admin: 10/19/18 12:46 Dose: 1 tab Documented by: Pantoprazole Sodium (Protonix) 40 mg PO QDAY [facility] Last Admin: 10/19/18 09:58 Dose: 40 mg Documented by: Quetiapine Fumarate (Seroquel) 100 mg PO QHS [facility] Last Admin: 10/18/18 21:09 Dose: 100 mg Documented by: Quetiapine Fumarate (Seroquel) 200 mg PO QHS [facility] Last Admin: 10/18/18 21:09 Dose: 200 mg Documented by: Sodium Chloride (Sodium Chloride Flush Syringe 10 Ml) 10 ml IV BID [facility] Last Admin: 10/19/18 09:59 Dose: 10 ml Documented by: Sodium Chloride (Sodium Chloride Flush Syringe 10 Ml) 10 ml IV PRN PRN PRN Reason: LINE FLUSH Trazodone HCl (Desyrel) 50 mg PO QHS [facility] Last Admin: 10/18/18 21:09 Dose: 50 mg Documented by: Review of Systems All systems: negative (see HPI) Exam - Constitutional Vitals: Temp Pulse Resp BP Pulse Ox 98.5 F 98 H 14 96/67 96 10/19/18 00:00 10/19/18 08:01 10/19/18 08:01 10/19/18 08:01 10/19/18 08:45 General appearance: Present: no acute distress - EENT Eyes: Present: EOM intact - Respiratory Respiratory effort: normal - Abdominal General gastrointestinal: Present: other (obese) - Psychiatric Psychiatric: appropriate mood/affect, cooperative Results - Labs CBC & Chem 7: 10/19/18 05:01 10/19/18 05:01 Labs: Abnormal lab results 10/19/18 10/19/18 Range/Units 05:01 05:01 RBC 3.09 L (3.65-5.03) M/mm3 MCV 103 H (79-97) fl MCH 35 H (28-32) pg RDW 25.1 H (13.2-15.2) % Plt Count 97 L (140-440) K/mm3 Monocytes % (Manual) 8.0 H (0.0-7.3) % Nucleated RBC % 1.0 H (0.0-0.9) % Lymphocytes # (Manual) 1.1 L (1.2-5.4) K/mm3 Sodium 136 L (137-145) mmol/L Potassium 3.4 L (3.6-5.0) mmol/L Chloride 97.4 L (98-107) mmol/L Carbon Dioxide 19 L (22-30) mmol/L BUN 46 H (7-17) mg/dL Creatinine 6.1 H (0.7-1.2) mg/dL Calcium 8.2 L (8.4-10.2) mg/dL Total Protein 5.2 L (6.3-8.2) g/dL Albumin 2.8 L (3.9-5) g/dL Assessment and Plan 58 year old female with multiple medical issues including ATN. ATN has not improved and patient will need HD. R/B/A of HD discussed with patient. Plan for permcath placement. Discussed avoiding IV/IM/BP cuff in the LUE until renal recovery occurs, if it will occur, to provide possible HD access if it turns out she needs to be on dialysis permanently. Vein mapping ordered. Card provided. Told patient to followup with us if Dr. Mills believes she will need permanent access.
[2018-10-19] MEDS ORDERED: NACL 0.9% 250ML 250 ML ONE (13:34)
[2018-10-19] MEDS ORDERED: ANCEF/STERILE WATER 2 GM/20 ML 2 GM/20 ML SYRINGE IV ONE (13:34)
[2018-10-19] MEDS ORDERED: HEPARIN/NS 5000 UNIT/500ML(CATH LAB) 500 ML IR ONE (13:34)
[2018-10-19] MEDS ORDERED: XYLOCAINE 1%/ EPI 1:100,000 INFILTRATI ONE (13:34)
--- NOTE | 2018-10-19 13:35 | Gastroenterology Progress Note ---
Assessment and Plan - Patient Problems (1) Alcohol abuse Current Visit: Yes Status: Acute (2) End stage renal disease Current Visit: Yes Status: Acute (3) Erosive gastritis with hemorrhage Current Visit: Yes Status: Acute Plan to address problem: - Severe erosive gastritis and duodenitis at EGD 10/18, with hx of tobacco, EtOH, and ibuprofen. - No signs of overt bleeding at present. - OK to d/c per our service on PO protonix; patient should avoid all tobacco and NSAIDs. - Will sign off; please call if needed. Subjective Date of service: 10/19/18 Principal diagnosis: GI bleed Interval history: The patient has had no N/V/abdominal pain/melena. Objective - Constitutional Vitals: Temp Pulse Resp BP Pulse Ox 98.5 F 98 H 14 96/67 96 10/19/18 00:00 10/19/18 08:01 10/19/18 08:01 10/19/18 08:01 10/19/18 08:45 General appearance: no acute distress - Respiratory Respiratory effort: labored (Mild) Respiratory: bilateral: CTA - Cardiovascular Rhythm: regular Heart Sounds: Present: S1 & S2 - Gastrointestinal General gastrointestinal: Present: soft, non-tender, non-distended - Labs CBC & Chem 7: 10/19/18 05:01 10/19/18 05:01 Labs: Laboratory Results - last 24 hr 10/19/18 10/19/18 05:01 05:01 WBC 4.8 RBC 3.09 L Hgb 10.7 Hct 31.8 MCV 103 H MCH 35 H MCHC 34 RDW 25.1 H Plt Count 97 L Add Manual Diff Complete Total Counted 100 Seg Neuts % (Manual) 68.0 Band Neutrophils % 0 Lymphocytes % (Manual) 23.0 Reactive Lymphs % (Man) 0 Monocytes % (Manual) 8.0 H Eosinophils % (Manual) 0 Basophils % (Manual) 1.0 Metamyelocytes % 0 Myelocytes % 0 Promyelocytes % 0 Blast Cells % 0 Nucleated RBC % 1.0 H Seg Neutrophils # Man 3.3 Band Neutrophils # 0.0 Lymphocytes # (Manual) 1.1 L Abs React Lymphs (Man) 0.0 Monocytes # (Manual) 0.4 Eosinophils # (Manual) 0.0 Basophils # (Manual) 0.0 Metamyelocytes # 0.0 Myelocytes # 0.0 Promyelocytes # 0.0 Blast Cells # 0.0 WBC Morphology Not Reportable Hypersegmented Neuts Not Reportable Hyposegmented Neuts Not Reportable Hypogranular Neuts Not Reportable Smudge Cells Not Reportable Toxic Granulation Not Reportable Toxic Vacuolation Not Reportable Dohle Bodies Not Reportable Pelger-Huet Anomaly Not Reportable Cece Rods Not Reportable Platelet Estimate Appears increased Clumped Platelets Not Reportable Plt Clumps, EDTA Not Reportable Large Platelets Not Reportable Giant Platelets Not Reportable Platelet Satelliting Not Reportable Plt Morphology Comment Not Reportable RBC Morphology Not Reportable Dimorphic RBCs Not Reportable Polychromasia Not Reportable Hypochromasia Not Reportable Poikilocytosis Not Reportable Anisocytosis 1+ Microcytosis Not Reportable Macrocytosis Few Spherocytes Not Reportable Pappenheimer Bodies Not Reportable Sickle Cells Not Reportable Target Cells Rare Tear Drop Cells Not Reportable Ovalocytes Few Helmet Cells Not Reportable Kaba-Bliss Bodies Not Reportable [place] Rings Not Reportable Tish Cells Not Reportable Bite Cells Not Reportable Crenated Cell Not Reportable Elliptocytes Not Reportable Acanthocytes (Spur) Not Reportable Rouleaux Not Reportable Hemoglobin C Crystals Not Reportable Schistocytes Not Reportable Malaria parasites Not Reportable Bigg Bodies Not Reportable Hem Pathologist Commnt No Sodium 136 L Potassium 3.4 L Chloride 97.4 L Carbon Dioxide 19 L Anion Gap 23 BUN 46 H Creatinine 6.1 H Estimated GFR 7 BUN/Creatinine Ratio 8 Glucose 94 Calcium 8.2 L Magnesium 2.00 Total Bilirubin 0.30 AST 7 ALT 7 Alkaline Phosphatase 66 Total Protein 5.2 L Albumin 2.8 L Albumin/Globulin Ratio 1.2
--- NOTE | 2018-10-19 13:52 | Ultrasound Report ---
ULTRASOUND RENAL RIGHT History: Renal failure. Technique: Transabdominal ultrasound with color Doppler interrogation. Findings: Correlation is made with the CT abdomen pelvis without contrast dated 10/17/18. The left kidney is not identified consistent with history of left nephrectomy 4 years ago. The right kidney is normal size, contour and echotexture measuring 11.0 x 5.9 x 7.4 cm. No right renal lesion, cystic disease, calculus or hydronephrosis. The bladder is unremarkable. Impression: Left nephrectomy. Normal right kidney.
[2018-10-19] MEDS: SUBLIMAZE ONE ×3 (13:57→14:11)
[2018-10-19] MEDS: VERSED ONE ×3 (13:57→14:09)
[2018-10-19] MEDS ORDERED: NACL 0.9% 100 ML IV PRN (14:10)
[2018-10-19] MEDS: HEPARIN 10,000 UNITS/10 ML ONE ×2 (14:15→14:16)
--- NOTE | 2018-10-19 14:37 | Operative Report ---
Operative Report Operative Report: EXAM: 1. Ultrasound-guided puncture of the right external jugular vein 2. Fluoroscopic-guided placement of a right external jugular tunneled cuffed hemodialysis catheter. DATE: 10/19/18 INDICATION: Acute tubular necrosis with acute renal failure requiring hemodialysis access. MEDICATIONS: Please see nursing report for full details. DEVICES: 23 cm tip to cuff 15 Fr dual lumen hemodialysis catheter IT APPLICATIONS ANALYST: GIBSON HATHAWAY MD CONTRAST: None PROCEDURE: The risks, benefits, and alternatives were discussed and informed consent was obtained. The patient was transported to the angiography suite in satisfactory/stable condition and was transported onto the angiography table. The patient's right external jugular vein was assessed with ultrasound and determined to be patent prior to procedure. 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 The patient was prepped and draped in a sterile fashion. The puncture site was anesthetized. Under sonographic guidance, the right external jugular vein was punctured with a 21-gauge micropuncture needle and a 0.018 inch wire was advanced into the inferior vena cava. The micropuncture needle was exchanged for a transitional dilator and the wire was retracted into the right atrium to yahaira intravascular distance. The wire and inner dilator were removed. 0.035 inch wire was advanced through the transitional dilator into the inferior vena cava. A suitable exit site was identified on the patient's chest inferior and lateral to the venotomy. The site was anesthetized with local anesthetic and the track was anesthetized. Dermatotomy was made. The PermCath was attached to the tunneling device and tunneled between the dermatotomy to the venotomy. Over the 0.035 inch wire, serial dilatation was performed with ultimate placement of a peel-away sheath. The catheter was advanced through the peel- away sheath after the wire was removed and positioned centrally under fluoroscopic guidance. The peel-away sheath was removed. 4-0 Vicryl suture was used to close the venotomy and Dermabond was then applied. 2-0 Ethilon suture was used to secure the catheter at the dermatotomy. The catheter was charged with 1000 units of heparin per mL of space. Sterile dressing and Biopatch applied. Pressure dressing applied. The patient was transferred from the angiography suite back to the recovery area in stable condition. FINDINGS: 1. Excellent flow was obtained through the dialysis catheter with 20 mL syringes. 2. The catheter tip is in the right atrium. IMPRESSION: 1. Successful ultrasound and fluoroscopically guided placement of a right external jugular tunneled cuffed hemodialysis catheter.
[2018-10-19] MEDS ORDERED: ALUM-MAG HYDROX-SIMETH 200-200-20MG/5ML PO PRN (16:03)
[2018-10-19] MEDS ORDERED: ALUM-MAG HYDROX-SIMETH 200-200-20MG/5ML PO ONE (16:03)
--- NOTE | 2018-10-19 16:07 | Progress Note ---
Assessment and Plan Assessment and plan: --Dyspepsia; Maalox as needed, Protonix, supportive care --Acute renal failure; tubular necrosis Gentle hydration closely monitor renal function and avoid nephrotoxin, nephrology following, Hemodialysis catheter placement today Initiate hemodialysis per nephrology --Rectal bleeding; resolved GI evaluated the patient, s/p EGD; No blood/clots active Severe erosive antral gastritis and duodenitis, with friability Cold bx of antrum Likely source of anemia No varices Avoid NSAIDs, Protonix, follow-up GI upon discharge --Acute congestive heart failure; unknown ejection fraction Follow echocardiogram, management per cardiology Input output monitoring low-sodium diet --Hypokalemia; replace per protocol and monitor levels --Hypomagnesemia; replace per protocol and monitor levels --Hyponatremia; closely monitor electrolytes and supportive care --H/O PE and DVT on Xeralto --Moderate hypoalbuminemia/malnutrition Nutrition supplements and supportive care --DVT prophylaxis; SCD No pharmacologic anticoagulation in view of GI bleeding Follow-up cardiology evaluation and recommendations Possible discharge in 1-2 days if stable Plan of care reviewed with the patient, family member at the bedside and her nurse History Interval history: Patient seen and examined this morning medical records reviewed Patient feels better complaints of generalized body pains and weakness, physical therapy is following the patient Alert awake oriented 3 Vital signs reviewed Hospitalist Physical - Constitutional Vitals: Temp Pulse Resp BP Pulse Ox 98.5 F 98 H 14 96/67 96 10/19/18 00:00 10/19/18 08:01 10/19/18 08:01 10/19/18 08:01 10/19/18 08:45 General appearance: Present: no acute distress, well-nourished, obese (morbidly obese) - EENT Eyes: Present: PERRL, EOM intact - Neck Neck: Present: supple, normal ROM - Respiratory Respiratory effort: normal Respiratory: bilateral: diminished, negative: rales, rhonchi, wheezing - Cardiovascular Rhythm: regular Heart Sounds: Present: S1 & S2 - Extremities Extremities: no ischemia, No edema - Abdominal General gastrointestinal: soft, non-tender, non-distended, normal bowel sounds - Integumentary Integumentary: Present: clear, warm - Psychiatric Psychiatric: appropriate mood/affect, cooperative - Neurologic Neurologic: moves all extremities Results - Labs CBC & Chem 7: 10/19/18 05:01 10/19/18 05:01 Labs: Laboratory Last Values WBC 4.8 K/mm3 (4.5-11.0) 10/19/18 05:01 RBC 3.09 M/mm3 (3.65-5.03) L 10/19/18 05:01 Hgb 10.7 gm/dl (10.1-14.3) 10/19/18 05:01 Hct 31.8 % (30.3-42.9) 10/19/18 05:01 MCV 103 fl (79-97) H 10/19/18 05:01 MCH 35 pg (28-32) H 10/19/18 05:01 MCHC 34 % (30-34) 10/19/18 05:01 RDW 25.1 % (13.2-15.2) H 10/19/18 05:01 Plt Count 97 K/mm3 (140-440) L 10/19/18 05:01 Add Manual Diff Complete 10/19/18 05:01 Total Counted 100 10/19/18 05:01 Seg Neuts % (Manual) 68.0 % (40.0-70.0) 10/19/18 05:01 Band Neutrophils % 0 % 10/19/18 05:01 Lymphocytes % (Manual) 23.0 % (13.4-35.0) 10/19/18 05:01 Reactive Lymphs % (Man) 0 % 10/19/18 05:01 Monocytes % (Manual) 8.0 % (0.0-7.3) H 10/19/18 05:01 Eosinophils % (Manual) 0 % (0.0-4.3) 10/19/18 05:01 Basophils % (Manual) 1.0 % (0.0-1.8) 10/19/18 05:01 Metamyelocytes % 0 % 10/19/18 05:01 Myelocytes % 0 % 10/19/18 05:01 Promyelocytes % 0 % 10/19/18 05:01 Blast Cells % 0 % 10/19/18 05:01 Nucleated RBC % 1.0 % (0.0-0.9) H 10/19/18 05:01 Seg Neutrophils # Man 3.3 K/mm3 (1.8-7.7) 10/19/18 05:01 Band Neutrophils # 0.0 K/mm3 10/19/18 05:01 Lymphocytes # (Manual) 1.1 K/mm3 (1.2-5.4) L 10/19/18 05:01 Abs React Lymphs (Man) 0.0 K/mm3 10/19/18 05:01 Monocytes # (Manual) 0.4 K/mm3 (0.0-0.8) 10/19/18 05:01 Eosinophils # (Manual) 0.0 K/mm3 (0.0-0.4) 10/19/18 05:01 Basophils # (Manual) 0.0 K/mm3 (0.0-0.1) 10/19/18 05:01 Metamyelocytes # 0.0 K/mm3 10/19/18 05:01 Myelocytes # 0.0 K/mm3 10/19/18 05:01 Promyelocytes # 0.0 K/mm3 10/19/18 05:01 Blast Cells # 0.0 K/mm3 10/19/18 05:01 WBC Morphology Not Reportable 10/19/18 05:01 Hypersegmented Neuts Not Reportable 10/19/18 05:01 Hyposegmented Neuts Not Reportable 10/19/18 05:01 Hypogranular Neuts Not Reportable 10/19/18 05:01 Smudge Cells Not Reportable 10/19/18 05:01 Toxic Granulation Not Reportable 10/19/18 05:01 Toxic Vacuolation Not Reportable 10/19/18 05:01 Dohle Bodies Not Reportable 10/19/18 05:01 Pelger-Huet Anomaly Not Reportable 10/19/18 05:01 Cece Rods Not Reportable 10/19/18 05:01 Platelet Estimate Appears increased 10/19/18 05:01 Clumped Platelets Not Reportable 10/19/18 05:01 Plt Clumps, EDTA Not Reportable 10/19/18 05:01 Large Platelets Not Reportable 10/19/18 05:01 Giant Platelets Not Reportable 10/19/18 05:01 Platelet Satelliting Not Reportable 10/19/18 05:01 Plt Morphology Comment Not Reportable 10/19/18 05:01 RBC Morphology Not Reportable 10/19/18 05:01 Dimorphic RBCs Not Reportable 10/19/18 05:01 Polychromasia Not Reportable 10/19/18 05:01 Hypochromasia Not Reportable 10/19/18 05:01 Poikilocytosis Not Reportable 10/19/18 05:01 Anisocytosis 1+ 10/19/18 05:01 Microcytosis Not Reportable 10/19/18 05:01 Macrocytosis Few 10/19/18 05:01 Spherocytes Not Reportable 10/19/18 05:01 Pappenheimer Bodies Not Reportable 10/19/18 05:01 Sickle Cells Not Reportable 10/19/18 05:01 Target Cells Rare 10/19/18 05:01 Tear Drop Cells Not Reportable 10/19/18 05:01 Ovalocytes Few 10/19/18 05:01 Helmet Cells Not Reportable 10/19/18 05:01 Kaba-Blanford Bodies Not Reportable 10/19/18 05:01 [place] Rings Not Reportable 10/19/18 05:01 [place] Cells Not Reportable 10/19/18 05:01 Bite Cells Not Reportable 10/19/18 05:01 Crenated Cell Not Reportable 10/19/18 05:01 Elliptocytes Not Reportable 10/19/18 05:01 Acanthocytes (Spur) Not Reportable 10/19/18 05:01 Rouleaux Not Reportable 10/19/18 05:01 Hemoglobin C Crystals Not Reportable 10/19/18 05:01 Schistocytes Not Reportable 10/19/18 05:01 Malaria parasites Not Reportable 10/19/18 05:01 Bigg Bodies Not Reportable 10/19/18 05:01 Hem Pathologist Commnt No 10/19/18 05:01 PT 15.5 Sec. (12.2-14.9) H 10/17/18 14:09 INR 1.16 (0.87-1.13) H 10/17/18 14:09 APTT 28.0 Sec. (24.2-36.6) 10/17/18 14:09 Sodium 136 mmol/L (137-145) L 10/19/18 05:01 Potassium 3.4 mmol/L (3.6-5.0) L 10/19/18 05:01 Chloride 97.4 mmol/L (98-107) L 10/19/18 05:01 Carbon Dioxide 19 mmol/L (22-30) L 10/19/18 05:01 Anion Gap 23 mmol/L 10/19/18 05:01 BUN 46 mg/dL (7-17) H 10/19/18 05:01 Creatinine 6.1 mg/dL (0.7-1.2) H 10/19/18 05:01 Estimated GFR 7 ml/min 10/19/18 05:01 BUN/Creatinine Ratio 8 % 10/19/18 05:01 Glucose 94 mg/dL (65-100) 10/19/18 05:01 Calcium 8.2 mg/dL (8.4-10.2) L 10/19/18 05:01 Phosphorus 6.00 mg/dL (2.5-4.5) H 10/18/18 03: Magnesium 2.00 mg/dL (1.7-2.3) 10/19/18 05:01 Total Bilirubin 0.30 mg/dL (0.1-1.2) 10/19/18 05:01 AST 7 units/L (5-40) 10/19/18 05:01 ALT 7 units/L (7-56) 10/19/18 05:01 Alkaline Phosphatase 66 units/L (35-129) 10/19/18 05:01 Total Creatine Kinase 60 units/L (30-135) 10/18/18 03:19 Troponin T < 0.010 ng/mL (0.00-0.029) 10/17/18 14:09 NT-Pro-B Natriuret Pep 1582 pg/mL (0-900) H 10/17/18 14:09 Total Protein 5.2 g/dL (6.3-8.2) L 10/19/18 05:01 Albumin 2.8 g/dL (3.9-5) L 10/19/18 05:01 Albumin/Globulin Ratio 1.2 % 10/19/18 05:01 Lipase 66 units/L (13-60) H 10/17/18 14:09 TSH 1.450 mlU/mL (0.270-4.200) 10/17/18 14:09 Free T4 0.52 ng/dL (0.76-1.46) L 10/17/18 14:09 PTH Intact 374.5 pg/mL (15-65) H 10/18/18 03:19 Urine Color Gely (Yellow) 10/17/18 19:30 Urine Turbidity Cloudy (Clear) 10/17/18 19:30 Urine pH 7.0 (5.0-7.0) 10/17/18 19:30 Ur Specific [place] 1.015 (1.003-1.030) 10/17/18 19:30 Urine Protein 100 mg/dl mg/dL (Negative) 10/17/18 19:30 Urine Glucose (UA) Neg mg/dL (Negative) 10/17/18 19: Urine Ketones Neg mg/dL (Negative) 10/17/18 19:30 Urine Blood Sm (Negative) 10/17/18 19: Urine Nitrite Neg (Negative) 10/17/18: Urine Bilirubin Neg (Negative) 10/17/18 19: Urine Urobilinogen < 2.0 mg/dL (<2.0) 10/17/18 19:30 Ur Leukocyte Esterase Lg (Negative) 10/17/18 19:30 Urine WBC (Auto) > 182.0 /HPF (0.0-6.0) H 10/17/18 19:30 Urine RBC (Auto) 9.0 /HPF (0.0-6.0) 10/17/18 19: U Epithel Cells (Auto) 9.0 /HPF (0-13.0) 10/17/18 19: Urine Bacteria (Auto) 2+ /HPF (Negative) 10/17/18 19:30 Urine Eosinophils None seen (None Seen) 10/17/18 19:30 Urine Creatinine 137.6 mg/dL (0.1-20.0) H 10/17/18 19: Urine Sodium 30 mmol/L 10/17/18 19:30 Plasma/Serum Alcohol < 0.01 % (0-0.07) 10/17/18 14:09 Hepatitis A IgM Ab Non-reactive (NonReactive) 10/17/18 14:09 Hep Bs Antigen Non-reactive (Negative) 10/17/18 14:09 Hep B Core IgM Ab Non-reactive (NonReactive) 10/17/18 14:09 Hepatitis C Antibody Non-reactive (NonReactive) 10/17/18 14:09 Blood Type A POSITIVE 10/17/18 14:09 Antibody Screen Negative 10/17/18 14:09 Active Medications - Current Medications Current Medications: Generic Name Dose Route Start Last Admin Trade Name Freq PRN Reason Stop Dose Admin Al Hydrox/Mg Hydrox/Simethicone 30 ml 10/19/18 16:03 Alum-Mag Hydrox-Simeth [id number]/5ml PO 10/19/18 16:04 ONCE ONE Al Hydrox/Mg Hydrox/Simethicone 30 ml 10/19/18 16:03 Alum-Mag Hydrox-Simeth [id number]/5ml PO Q4H PRN Indigestion Albuterol 2.5 mg 10/17/18 16:26 Proventil IH Q3HRT PRN Shortness Of Breath Artificial Tears 1 drops 10/18/18 08:00 Isopto Tears 0.5% OU Q6H PRN Dry Eye(s) Atorvastatin Calcium 20 mg 10/17/18 22:00 10/18/18 21:08 Lipitor PO 20 mg QHS [facility] Administration Ceftriaxone Sodium 1 gm in 50 mls @ 100 mls/hr 10/18/18 05:52 10/18/18 17:29 Rocephin/Ns 1 Gm/50 Ml IV 100 mls/hr Q24HR [facility] Administration Protocol Sodium Chloride 1,000 mls @ 100 mls/hr 10/18/18 12:00 10/18/18 16:56 Nacl 0.9% 1000 Ml IV 50 mls/hr DIRECT [facility] Administration Sodium Chloride 100 mls @ 999 mls/hr 10/19/18 14:10 Nacl 0.9% IV RAJI PRN Hypotension Multivitamins/Minerals 1 each 10/19/18 10:00 10/19/18 09:58 Theragran-M Tab PO 1 each QDAY [facility] Administration Oxycodone/Acetaminophen 1 tab 10/18/18 16:54 10/19/18 12:46 Percocet 5/325 PO 1 tab Q6H PRN Administration Pain, Moderate (4-6) Pantoprazole Sodium 40 mg 10/19/18 10:00 10/19/18 09:58 Protonix PO 40 mg QDAY [facility] Administration Quetiapine Fumarate 100 mg 10/18/18 22:00 10/18/18 21:09 Seroquel PO 100 mg QHS [facility] Administration Quetiapine Fumarate 200 mg 10/18/18 22:00 10/18/18 21:09 Seroquel PO 200 mg QHS [facility] Administration Sodium Chloride 10 ml 10/17/18 22:00 10/19/18 09:59 Sodium Chloride Flush Syringe 10 Ml IV 10 ml BID [facility] Administration Sodium Chloride 10 ml 10/17/18 16:26 Sodium Chloride Flush Syringe 10 Ml IV PRN PRN LINE FLUSH Trazodone HCl 50 mg 10/17/18 22:00 10/18/18 21:09 Desyrel PO 50 mg QHS [facility] Administration
[2018-10-19] MEDS: NACL 0.9% 1000 ML 1,000 ML IV SCH ×3 (16:18→21:20)
[2018-10-19] MEDS: ROCEPHIN/NS 1 GM/50 ML 1 GM/50 ML BAG IV SCH ×2 (16:19→22:17)
[2018-10-19] MEDS: DESYREL PO SCH (21:17)
[2018-10-20 05:32] LABS: Hematocrit 32.2 % (30.3-42.9); Hemoglobin 10.8 gm/dl (10.1-14.3); Mean Corpuscular HGB Conc 34 % (30-34); Mean Corpuscular Volume 103 fl (79-97); Red Blood Count 3.12 M/mm3 (3.65-5.03)
[2018-10-20 05:38] LABS: Platelet Count 84 K/mm3 (140-440); Red Cell Distribution Width 25.1 % (13.2-15.2)
[2018-10-20 05:48] LABS: Calcium 7.8 mg/dL (8.4-10.2)
[2018-10-20] MEDS: PERCOCET 5/325 PO PRN ×3 (05:52→23:38)
[2018-10-20 07:43] LABS: Basophils % (Manual) 0 % (0.0-1.8); Eosinophils % (Manual) 0 % (0.0-4.3); Total Cells Counted 100
[2018-10-20 07:44] LABS: Anisocytosis 1+; Burr Cells 1+; Macrocytosis Few; Platelet Estimate Consistent w Auto; Target Cells Few
[2018-10-20] MEDS: ROCEPHIN/NS 1 GM/50 ML 1 GM/50 ML BAG IV SCH (09:40)
[2018-10-20] MEDS: THERAGRAN-M Tab PO SCH (09:41)
[2018-10-20] MEDS: SODIUM CHLORIDE FLUSH SYRINGE 10 ML IV SCH ×2 (09:42→23:39)
--- NOTE | 2018-10-20 10:22 | Progress Note ---
Assessment and Plan Acute GI bleed with secondary anemia Severe erosive gastritis and duodenitis Acute on Chronic renal disease Acute tubular necrosis with previous nephrectomy PE/DVT on Xarelto for oral anticoagulation s/p IVC filter 10 years ago Echo this admission showing normal LVEF with evidence of RV pressure and volume overload Hx of COPD Thrombocytopenia Recommendations: GI recommending to hold anticoagulation until October 20. Avoid xarelto due to creatinine clearance. Recommend to use warfarin for anticoagulation given renal failure. May use eliquis 5 mg po bid if patient start HD Otherwise, conservative cardiac management. Subjective Principal diagnosis: GI bleed Objective Vital Signs Temp Pulse Pulse Resp BP Pulse Ox Pulse Ox 10/20/18 09:43 93 10/20/18 07:31 96 H 12 99/63 89 10/20/18 07:00 95 H 9 L 99/63 97 10/20/18 06:31 94 H 9 L 96/51 95 10/20/18 06:01 92 H 9 L 108/60 95 10/20/18 05:31 92 H 11 L 96/51 91 10/20/18 05:00 90 11 L 96/51 93 10/20/18 04:31 89 10 L 98/60 91 10/20/18 04:00 98 H 13 98/60 91 10/20/18 03:31 91 H 8 L 111/68 93 10/20/18 03:00 91 H 11 L 89/45 92 10/20/18 02:31 98 H 12 102/58 96 10/20/18 02:00 88 11 L 111/68 94 10/20/18 01:31 92 H 9 L 102/58 93 10/20/18 01:00 97 H 9 L 120/60 94 10/20/18 00:45 97.8 F 95 H 15 120/60 94 10/20/18 00:35 91 H 107/57 10/20/18 00:30 92 H 11 L 118/61 93 10/20/18 00:15 91 H 103/55 10/20/18 00:00 102 H 20 96/70 94 10/19/18 23:45 91 H 11 L 112/71 92 10/19/18 23:30 92 H 15 117/73 91 10/19/18 23:15 94 H 112/67 10/19/18 23:01 99 H 13 127/72 92 10/19/18 23:00 93 H 126/93 10/19/18 22:45 90 115/73 10/19/18 22:35 88 127/72 10/19/18 22:30 97.8 F 92 H 17 98/64 92 92 10/19/18 22:00 90 11 L 105/69 93 10/19/18 21:30 90 12 112/71 94 10/19/18 21:03 89 10/19/18 21:00 90 15 97/59 94 10/19/18 20:30 94 H 12 106/62 94 10/19/18 20:00 97.8 F 88 10 L 103/61 95 10/19/18 19:30 89 13 96/69 94 10/19/18 19:01 98 H 12 95/69 93 10/19/18 18:30 88 9 L 116/61 93 10/19/18 18:00 88 15 114/75 94 10/19/18 17:30 99 H 21 112/73 96 10/19/18 17:00 100 H 20 106/65 94 10/19/18 16:30 90 12 95/53 95 10/19/18 16:00 91 H 87 9 L 87/52 93 10/19/18 15:30 94 H 9 L 104/63 91 10/19/18 15:01 100 H 13 105/70 92 10/19/18 14:55 101/70 92 10/19/18 13:01 112 H 21 103/71 92 10/19/18 12:31 93 H 17 112/65 91 10/19/18 12:00 91 H 87 8 L 103/71 90 10/19/18 11:31 89 8 L 112/65 91 10/19/18 11:00 89 9 L 112/65 91 10/19/18 10:31 88 9 L 106/60 89 - Physical Examination HEENT: Positive: PERRL Neck: Positive: neck supple, trachea midline Neuro: Positive: Grossly Intact - Labs and Meds CBC 10/20/18 Range/Units 04:50 WBC 4.2 L (4.5-11.0) K/mm3 RBC 3.12 L (3.65-5.03) M/mm3 Hgb 10.8 (10.1-14.3) gm/dl Hct 32.2 (30.3-42.9) % Plt Count 84 L (140-440) K/mm3 Comprehensive Metabolic Panel 10/20/18 Range/Units 04:50 Sodium 140 (137-145) mmol/L Potassium 3.4 L (3.6-5.0) mmol/L Chloride 103.1 (98-107) mmol/L Carbon Dioxide 22 (22-30) mmol/L BUN 24 H (7-17) mg/dL Creatinine 3.3 H (0.7-1.2) mg/dL Glucose 96 (65-100) mg/dL Calcium 7.8 L (8.4-10.2) mg/dL
--- NOTE | 2018-10-20 10:29 | Progress Note ---
Assessment and Plan Assessment and plan: --Dyspepsia; Maalox as needed, Protonix, supportive care --Acute renal failure; tubular necrosis Initiate hemodialysis, HD per schedule per nephrology --Rectal bleeding; resolved GI evaluated the patient, s/p EGD; No blood/clots active Severe erosive antral gastritis and duodenitis, with friability Cold bx of antrum Likely source of anemia No varices Avoid NSAIDs, Protonix, follow-up GI upon discharge --Acute diastolic congestive heart failure; EF 50-55% Impaired relaxation of left ventricle Continue current management --Hypokalemia; replace per protocol and monitor levels --Hypomagnesemia; replace per protocol and monitor levels --Hyponatremia; closely monitor electrolytes and supportive care --H/O PE and DVT on Xeralto --Moderate hypoalbuminemia/malnutrition Nutrition supplements and supportive care --DVT prophylaxis; SCD No pharmacologic anticoagulation in view of GI bleeding Patient is stable to be transferred out of [facility] to medical floor History Interval history: Patient seen and examined medical records reviewed Patient received hemodialysis last night Feels better no new complaints Tolerated physical therapy Vital signs noted Hospitalist Physical - Constitutional Vitals: Temp Pulse Resp BP Pulse Ox 97.8 F 96 H 12 99/63 93 10/20/18 00:45 10/20/18 07:31 10/20/18 07:31 10/20/18 07:31 10/20/18 09:43 General appearance: Present: no acute distress, well-nourished, obese (morbidly obese) - EENT Eyes: Present: PERRL, EOM intact - Neck Neck: Present: supple, normal ROM - Respiratory Respiratory effort: normal Respiratory: bilateral: diminished, negative: rales, rhonchi, wheezing - Cardiovascular Rhythm: regular Heart Sounds: Present: S1 & S2 - Extremities Extremities: no ischemia, No edema - Abdominal General gastrointestinal: soft, non-tender, non-distended, normal bowel sounds - Integumentary Integumentary: Present: clear, warm - Psychiatric Psychiatric: appropriate mood/affect, cooperative - Neurologic Neurologic: CNII-XII intact, moves all extremities Results - Labs CBC & Chem 7: 10/20/18 04:50 10/20/18 04:50 Labs: Laboratory Last Values WBC 4.2 K/mm3 (4.5-11.0) L 10/20/18 04:50 RBC 3.12 M/mm3 (3.65-5.03) L 10/20/18 04:50 Hgb 10.8 gm/dl (10.1-14.3) 10/20/18 04:50 Hct 32.2 % (30.3-42.9) 10/20/18 04:50 MCV 103 fl (79-97) H 10/20/18 04:50 MCH 35 pg (28-32) H 10/20/18 04:50 MCHC 34 % (30-34) 10/20/18 04:50 RDW 25.1 % (13.2-15.2) H 10/20/18 04:50 Plt Count 84 K/mm3 (140-440) L 10/20/18 04:50 Add Manual Diff Complete 10/20/18 04:50 Total Counted 100 10/20/18 04:50 Seg Neuts % (Manual) 70.0 % (40.0-70.0) 10/20/18 04:50 Band Neutrophils % 0 % 10/20/18 04:50 Lymphocytes % (Manual) 22.0 % (13.4-35.0) 10/20/18 04:50 Reactive Lymphs % (Man) 0 % 10/20/18 04:50 Monocytes % (Manual) 8.0 % (0.0-7.3) H 10/20/18 04:50 Eosinophils % (Manual) 0 % (0.0-4.3) 10/20/18 04:50 Basophils % (Manual) 0 % (0.0-1.8) 10/20/18 04:50 Metamyelocytes % 0 % 10/20/18 04:50 Myelocytes % 0 % 10/20/18 04:50 Promyelocytes % 0 % 10/20/18 04:50 Blast Cells % 0 % 10/20/18 04:50 Nucleated RBC % Not Reportable 10/20/18 04:50 Seg Neutrophils # Man 2.9 K/mm3 (1.8-7.7) 10/20/18 04:50 Band Neutrophils # 0.0 K/mm3 10/20/18 04:50 Lymphocytes # (Manual) 0.9 K/mm3 (1.2-5.4) L 10/20/18 04:50 Abs React Lymphs (Man) 0.0 K/mm3 10/20/18 04:50 Monocytes # (Manual) 0.3 K/mm3 (0.0-0.8) 10/20/18 04:50 Eosinophils # (Manual) 0.0 K/mm3 (0.0-0.4) 10/20/18 04:50 Basophils # (Manual) 0.0 K/mm3 (0.0-0.1) 10/20/18 04:50 Metamyelocytes # 0.0 K/mm3 10/20/18 04:50 Myelocytes # 0.0 K/mm3 10/20/18 04:50 Promyelocytes # 0.0 K/mm3 10/20/18 04:50 Blast Cells # 0.0 K/mm3 10/20/18 04:50 WBC Morphology Not Reportable 10/20/18 04:50 Hypersegmented Neuts Not Reportable 10/20/18 04:50 Hyposegmented Neuts Not Reportable 10/20/18 04:50 Hypogranular Neuts Not Reportable 10/20/18 04:50 Smudge Cells Not Reportable 10/20/18 04:50 Toxic Granulation Not Reportable 10/20/18 04:50 Toxic Vacuolation Not Reportable 10/20/18 04:50 Dohle Bodies Not Reportable 10/20/18 04:50 Pelger-Huet Anomaly Not Reportable 10/20/18 04:50 Cece Rods Not Reportable 10/20/18 04:50 Platelet Estimate Consistent w auto 10/20/18 04:50 Clumped Platelets Not Reportable 10/20/18 04:50 Plt Clumps, EDTA Not Reportable 10/20/18 04:50 Large Platelets Not Reportable 10/20/18 04:50 Giant Platelets Not Reportable 10/20/18 04:50 Platelet Satelliting Not Reportable 10/20/18 04:50 Plt Morphology Comment Not Reportable 10/20/18 04:50 RBC Morphology Not Reportable 10/20/18 04:50 Dimorphic RBCs Not Reportable 10/20/18 04:50 Polychromasia Not Reportable 10/20/18 04:50 Hypochromasia Not Reportable 10/20/18 04:50 Poikilocytosis Not Reportable 10/20/18 04:50 Anisocytosis 1+ 10/20/18 04:50 Microcytosis Not Reportable 10/20/18 04:50 Macrocytosis Few 10/20/18 04:50 Spherocytes Not Reportable 10/20/18 04:50 Pappenheimer Bodies Not Reportable 10/20/18 04:50 Sickle Cells Not Reportable 10/20/18 04:50 Target Cells Few 10/20/18 04:50 Tear Drop Cells Not Reportable 10/20/18 04:50 Ovalocytes Not Reportable 10/20/18 04:50 Helmet Cells Not Reportable 10/20/18 04:50 Kaba-Warthen Bodies Not Reportable 10/20/18 04:50 Gordon Rings Not Reportable 10/20/18 04:50 Tish Cells 1+ 10/20/18 04:50 Bite Cells Not Reportable 10/20/18 04:50 Crenated Cell Not Reportable 10/20/18 04:50 Elliptocytes Not Reportable 10/20/18 04:50 Acanthocytes (Spur) Not Reportable 10/20/18 04:50 Rouleaux Not Reportable 10/20/18 04:50 Hemoglobin C Crystals Not Reportable 10/20/18 04:50 Schistocytes Not Reportable 10/20/18 04:50 Malaria parasites Not Reportable 10/20/18 04:50 Bigg Bodies Not Reportable 10/20/18 04:50 Hem Pathologist Commnt No 10/20/18 04:50 PT 15.5 Sec. (12.2-14.9) H 10/17/18 14:09 INR 1.16 (0.87-1.13) H 10/17/18 14:09 APTT 28.0 Sec. (24.2-36.6) 10/17/18 14:09 Sodium 140 mmol/L (137-145) 10/20/18 04:50 Potassium 3.4 mmol/L (3.6-5.0) L 10/20/18 04:50 Chloride 103.1 mmol/L (98-107) 10/20/18 04:50 Carbon Dioxide 22 mmol/L (22-30) 10/20/18 04:50 Anion Gap 18 mmol/L 10/20/18 04:50 BUN 24 mg/dL (7-17) H 10/20/18 04:50 Creatinine 3.3 mg/dL (0.7-1.2) H 10/20/18 04:50 Estimated GFR 14 ml/min 10/20/18 04:50 BUN/Creatinine Ratio 7 % 10/20/18 04:50 Glucose 96 mg/dL (65-100) 10/20/18 04:50 Calcium 7.8 mg/dL (8.4-10.2) L 10/20/18 04:50 Phosphorus 6.00 mg/dL (2.5-4.5) H 10/18/18 03:19 Magnesium 2.00 mg/dL (1.7-2.3) 10/19/18 05:01 Total Bilirubin 0.30 mg/dL (0.1-1.2) 10/19/18 05:01 AST 7 units/L (5-40) 10/19/18 05:01 ALT 7 units/L (7-56) 10/19/18 05:01 Alkaline Phosphatase 66 units/L (35-129) 10/19/18 05:01 Total Creatine Kinase 60 units/L (30-135) 10/18/18 03:19 Troponin T < 0.010 ng/mL (0.00-0.029) 10/17/18 14:09 NT-Pro-B Natriuret Pep 1582 pg/mL (0-900) H 10/17/18 14:09 Total Protein 5.2 g/dL (6.3-8.2) L 10/19/18 05:01 Albumin 2.8 g/dL (3.9-5) L 10/19/18 05:01 Albumin/Globulin Ratio 1.2 % 10/19/18 05:01 Lipase 66 units/L (13-60) H 10/17/18 14:09 TSH 1.450 mlU/mL (0.270-4.200) 10/17/18 14:09 Free T4 0.52 ng/dL (0.76-1.46) L 10/17/18 14:09 PTH Intact 374.5 pg/mL (15-65) H 10/18/18 03:19 Urine Color Gely (Yellow) 10/17/18 19:30 Urine Turbidity Cloudy (Clear) 10/17/18 19:30 Urine pH 7.0 (5.0-7.0) 10/17/18 19:30 Ur Specific [place] 1.015 (1.003-1.030) 10/17/18 19:30 Urine Protein 100 mg/dl mg/dL (Negative) 10/17/18 19:30 Urine Glucose (UA) Neg mg/dL (Negative) 10/17/18 19:30 Urine Ketones Neg mg/dL (Negative) 10/17/18 19:30 Urine Blood Sm (Negative) 10/17/18 19:30 Urine Nitrite Neg (Negative) 10/17/18 19:30 Urine Bilirubin Neg (Negative) 10/17/18 19:30 Urine Urobilinogen < 2.0 mg/dL (<2.0) 10/17/18 19:30 Ur Leukocyte Esterase Lg (Negative) 10/17/18 19:30 Urine WBC (Auto) > 182.0 /HPF (0.0-6.0) H 10/17/18 19:30 Urine RBC (Auto) 9.0 /HPF (0.0-6.0) 10/17/18 19:30 U Epithel Cells (Auto) 9.0 /HPF (0-13.0) 10/17/18 19:30 Urine Bacteria (Auto) 2+ /HPF (Negative) 10/17/18 19:30 Urine Eosinophils None seen (None Seen) 10/17/18 19:30 Urine Creatinine 137.6 mg/dL (0.1-20.0) H 10/17/18 19:30 Urine Sodium 30 mmol/L 10/17/18 19:30 Plasma/Serum Alcohol < 0.01 % (0-0.07) 10/17/18 14:09 Hepatitis A IgM Ab Non-reactive (NonReactive) 10/17/18 14:09 Hep Bs Antigen Non-reactive (Negative) 10/17/18 14:09 Hep B Core IgM Ab Non-reactive (NonReactive) 10/17/18 14:09 Hepatitis C Antibody Non-reactive (NonReactive) 10/17/18 14:09 Blood Type A POSITIVE 10/17/18 14:09 Antibody Screen Negative 10/17/18 14:09 Active Medications - Current Medications Current Medications: Generic Name Dose Route Start Last Admin Trade Name Freq PRN Reason Stop Dose Admin Al Hydrox/Mg Hydrox/Simethicone 30 ml 10/19/18 16:03 Alum-Mag Hydrox-Simeth 010-487-90gg/5ml PO Q4H PRN Indigestion Albuterol 2.5 mg 10/17/18 16:26 Proventil IH Q3HRT PRN Shortness Of Breath Artificial Tears 1 drops 10/18/18 08:00 Isopto Tears 0.5% OU Q6H PRN Dry Eye(s) Atorvastatin Calcium 20 mg 10/17/18 22:00 10/19/18 21:17 Lipitor PO 20 mg QHS CAMRON Administration Ceftriaxone Sodium 1 gm in 50 mls @ 100 mls/hr 10/18/18 05:52 10/20/18 09:40 Rocephin/Ns 1 Gm/50 Ml IV 100 mls/hr Q24HR CAMRON Administration Protocol Sodium Chloride 1,000 mls @ 100 mls/hr 10/18/18 12:00 10/19/18 21:20 Nacl 0.9% 1000 Ml IV 50 mls/hr DIRECT CAMRON Administration Sodium Chloride 100 mls @ 999 mls/hr 10/19/18 14:10 Nacl 0.9% IV RAJI PRN Hypotension Multivitamins/Minerals 1 each 10/19/18 10:00 10/20/18 09:41 Theragran-M Tab PO 1 each QDAY CAMRON Administration Oxycodone/Acetaminophen 1 tab 10/18/18 16:54 10/20/18 05:52 Percocet 5/325 PO 1 tab Q6H PRN Administration Pain, Moderate (4-6) Pantoprazole Sodium 40 mg 10/19/18 10:00 10/19/18 09:58 Protonix PO 40 mg QDAY CAMRON Administration Potassium Chloride 40 meq 10/20/18 10:30 K-Dur PO 10/20/18 11:30 ONCE NR Quetiapine Fumarate 100 mg 10/18/18 22:00 10/19/18 21:17 Seroquel PO 100 mg QHS CAMRON Administration Quetiapine Fumarate 200 mg 10/18/18 22:00 10/19/18 21:17 Seroquel PO 200 mg QHS CAMRON Administration Sodium Chloride 10 ml 10/17/18 22:00 10/20/18 09:42 Sodium Chloride Flush Syringe 10 Ml IV 10 ml BID CAMRON Administration Sodium Chloride 10 ml 10/17/18 16:26 Sodium Chloride Flush Syringe 10 Ml IV PRN PRN LINE FLUSH Trazodone HCl 50 mg 10/17/18 22:00 10/19/18 21:17 Desyrel PO 50 mg QHS CAMRON Administration
[2018-10-20] MEDS ORDERED: K-DUR PO NR ×2 (10:30→16:13)
[2018-10-20] MEDS: PROTONIX PO SCH (10:53)
--- NOTE | 2018-10-20 16:12 | Progress Note ---
Assessment and Plan 1. Acute kidney injury: Likely vasomotor SULY superimposed on CKD. Unilateral kidney. Creatinine was 1.1 in mar 2018. Continue IV fluids. CT abdomen was negative for hydronephrosis. Patient required hemodialysis yesterday due to suspected uremic symptoms. Monitor renal function. Renal prognosis is guarded to poor. Avoid nephrotoxic agents. Meds dosage based on GFR. 2. FEN: Metabolic acidosis. Replete K. Continue IV fluids. 3. GI bleed: Followed by GI. 4. Diastolic CHF. 5. H/o DVT / PE: Monitor. 6. H/o alcohol abuse. Subjective Date of service: 10/20/18 Principal diagnosis: GI bleed Interval history: Patient was seen and examined at the bedside. Feeling better today. Objective - Vital Signs Vital signs: Vital Signs - 12hr 10/20/18 10/20/18 10/20/18 04:31 05:00 05:31 Temperature Pulse Rate 89 90 92 H Pulse Rate [ From Monitor] Respiratory 10 L 11 L 11 L Rate Blood Pressure 98/60 96/51 96/51 O2 Sat by Pulse 91 93 91 Oximetry 10/20/18 10/20/18 10/20/18 06:01 06:31 07:00 Temperature Pulse Rate 92 H 94 H 95 H Pulse Rate [ From Monitor] Respiratory 9 L 9 L 9 L Rate Blood Pressure 108/60 96/51 99/63 O2 Sat by Pulse 95 95 97 Oximetry 10/20/18 10/20/18 10/20/18 07:31 08:00 08:31 Temperature 98.4 F Pulse Rate 96 H 92 H 93 H Pulse Rate [ From Monitor] Respiratory 12 10 L 11 L Rate Blood Pressure 99/63 102/67 102/67 O2 Sat by Pulse 89 92 93 Oximetry 10/20/18 10/20/18 10/20/18 09:00 09:02 09:31 Temperature Pulse Rate 99 H 96 H Pulse Rate [ 92 H From Monitor] Respiratory 14 16 16 Rate Blood Pressure 109/70 102/67 O2 Sat by Pulse 89 98 Oximetry 10/20/18 10/20/18 10/20/18 09:43 10:00 10:31 Temperature Pulse Rate 96 H 105 H Pulse Rate [ From Monitor] Respiratory 14 21 Rate Blood Pressure 108/66 108/66 O2 Sat by Pulse 93 98 95 Oximetry 10/20/18 10/20/18 10/20/18 11:00 11:31 12:00 Temperature Pulse Rate 92 H 97 H 97 H Pulse Rate [ From Monitor] Respiratory 12 19 8 L Rate Blood Pressure 113/66 113/66 111/70 O2 Sat by Pulse 96 97 96 Oximetry 10/20/18 10/20/18 10/20/18 12:31 13:00 13:31 Temperature Pulse Rate 104 H 101 H 97 H Pulse Rate [ From Monitor] Respiratory 18 12 10 L Rate Blood Pressure 113/66 115/74 115/74 O2 Sat by Pulse 95 99 99 Oximetry 10/20/18 10/20/18 10/20/18 14:00 14:31 15:12 Temperature Pulse Rate 93 H 92 H 91 H Pulse Rate [ From Monitor] Respiratory 9 L 10 L 14 Rate Blood Pressure 119/75 119/75 O2 Sat by Pulse 98 99 99 Oximetry - General Appearance General appearance: well-developed, well-nourished, appears stated age, obese, other (not in distress, right IJ tunnel catheter) EENT: ATNC, PERRL, hearing intact, vision intact Neck: supple Respiratory: Present: Clear to Ascultation Cardiology: regular, S1S2, no murmurs Gastrointestinal: normoactive bowel sounds, no tenderness, no distended, obese Integumentary: other (suspected spider naevi) Neurologic: no focal deficit, no asterixis, alert and oriented x3 Musculoskeletal: other (trace LE edema noted) Psychiatric: cooperative - Lab 10/20/18 04:50 10/20/18 04:50 Most recent lab results Calcium 7.8 mg/dL (8.4-10.2) L 10/20/18 04:50 Phosphorus 6.00 mg/dL (2.5-4.5) H 10/18/18 03:19 Magnesium 2.00 mg/dL (1.7-2.3) 10/19/18 05:01 Urine Creatinine 137.6 mg/dL (0.1-20.0) H 10/17/18 19:30 Urine Sodium 30 mmol/L 10/17/18 19:30 Medications & Allergies - Medications Allergies/Adverse Reactions: Allergies TORRIE INHIBITOR Allergy (Uncoded 03/22/14 15:42) Swelling IVP DYE Allergy (Uncoded 03/22/14 15:42) Itching Home Medications: Home Medications Medication Instructions Recorded Confirmed Last Taken Type Albuterol Sulfate [Ventolin Hfa] 18 gm IH PRN 10/17/18 10/17/18 Unknown History Dextran 70/Hypromellose/Pf 1 - 2 drop OP PRN 10/17/18 10/17/18 Unknown History [Artificial Tears Drops 1%/0.3%] Quetiapine Fumarate [Seroquel] 300 mg PO QHS 10/17/18 10/17/18 Unknown History Rivaroxaban [Xarelto] 20 mg PO QDAY 10/17/18 10/17/18 Unknown History Rosuvastatin Calcium [Crestor] 10 mg PO DAILY 10/17/18 10/17/18 Unknown History amLODIPine [Norvasc] 10 mg PO DAILY 10/17/18 10/17/18 Unknown History traZODone [Desyrel] 50 mg PO QHS 10/17/18 10/17/18 Unknown History Active Medications: Generic Name Dose Route Start Last Admin Trade Name Freq PRN Reason Stop Dose Admin Al Hydrox/Mg Hydrox/Simethicone 30 ml 10/19/18 16:03 Alum-Mag Hydrox-Simeth 162-943-47by/5ml PO Q4H PRN Indigestion Albuterol 2.5 mg 10/17/18 16:26 Proventil IH Q3HRT PRN Shortness Of Breath Artificial Tears 1 drops 10/18/18 08:00 Isopto Tears 0.5% OU Q6H PRN Dry Eye(s) Atorvastatin Calcium 20 mg 10/17/18 22:00 10/19/18 21:17 Lipitor PO 20 mg QHS CAMRON Administration Ceftriaxone Sodium 1 gm in 50 mls @ 100 mls/hr 10/18/18 05:52 10/20/18 09:40 Rocephin/Ns 1 Gm/50 Ml IV 100 mls/hr Q24HR CAMRON Administration Protocol Sodium Chloride 1,000 mls @ 100 mls/hr 10/18/18 12:00 10/19/18 21:20 Nacl 0.9% 1000 Ml IV 50 mls/hr DIRECT CAMRON Administration Sodium Chloride 100 mls @ 999 mls/hr 10/19/18 14:10 Nacl 0.9% IV RAJI PRN Hypotension Multivitamins/Minerals 1 each 10/19/18 10:00 10/20/18 09:41 Theragran-M Tab PO 1 each QDAY CAMRON Administration Oxycodone/Acetaminophen 1 tab 10/18/18 16:54 10/20/18 16:01 Percocet 5/325 PO 1 tab Q6H PRN Administration Pain, Moderate (4-6) Pantoprazole Sodium 40 mg 10/19/18 10:00 10/20/18 10:53 Protonix PO 40 mg QDAY CAMRON Administration Quetiapine Fumarate 100 mg 10/18/18 22:00 10/19/18 21:17 Seroquel PO 100 mg QHS CAMRON Administration Quetiapine Fumarate 200 mg 10/18/18 22:00 10/19/18 21:17 Seroquel PO 200 mg QHS CAMRON Administration Sodium Chloride 10 ml 10/17/18 22:00 10/20/18 09:42 Sodium Chloride Flush Syringe 10 Ml IV 10 ml BID CAMRON Administration Sodium Chloride 10 ml 10/17/18 16:26 Sodium Chloride Flush Syringe 10 Ml IV PRN PRN LINE FLUSH Trazodone HCl 50 mg 10/17/18 22:00 10/19/18 21:17 Desyrel PO 50 mg QHS CAMRON Administration
[2018-10-20] MEDS: DESYREL PO SCH (23:38)
[2018-10-21 06:07] LABS: Calcium 8.2 mg/dL (8.4-10.2)
[2018-10-21] MEDS ORDERED: MAGNESIUM SULFATE 1 GM in NACL 0.9% 50 ML IV ONE (09:00)
[2018-10-21] MEDS: PROTONIX PO SCH (09:04)
[2018-10-21] MEDS: THERAGRAN-M Tab PO SCH (09:04)
[2018-10-21] MEDS: SODIUM CHLORIDE FLUSH SYRINGE 10 ML IV SCH (09:04)
--- NOTE | 2018-10-21 09:53 | Progress Note ---
Assessment and Plan Acute GI bleed with secondary anemia Severe erosive gastritis and duodenitis GI recommend restarting anticoagulation after October 20 Acute on Chronic renal disease Acute tubular necrosis with previous nephrectomy Initiated on HD this admission PE/DVT on Xarelto for oral anticoagulation s/p IVC filter 10 years ago Echo this admission showing normal LVEF with evidence of RV pressure and volume overload Hx of COPD Thrombocytopenia Recommendations: Continue to hold anticoagulation as patient still reports evidence of intermittent rectal bleeding Avoid xarelto due to creatinine clearance. Recommend to use warfarin for anticoagulation given renal failure or eliquis 5 mg po bid not that patient is on HD Resume anticoagulation when safe and feasible Subjective Date of service: 10/21/18 Principal diagnosis: GI bleed Interval history: Patient denies chest pain or shortness of breath No events on tele Objective Vital Signs Temp Pulse Pulse Resp BP Pulse Ox 10/21/18 05:00 16 10/21/18 04:39 98.0 F 98 H 18 109/62 94 10/20/18 21:13 98.1 F 88 18 116/83 97 10/20/18 20:40 71/47 96 10/20/18 20:30 88 12 129/106 96 10/20/18 20:20 89 10 L 71/47 97 10/20/18 20:00 98.8 F 92 H 12 96/46 95 10/20/18 19:30 90 10 L 96/46 95 10/20/18 19:00 90 18 96/46 97 10/20/18 18:30 91 H 15 113/70 98 10/20/18 18:00 84 14 113/70 10/20/18 17:30 92 H 33 H 121/71 91 10/20/18 17:00 97 H 92 H 16 121/71 98 10/20/18 16:30 91 H 11 L 114/69 98 10/20/18 16:00 98.3 F 94 H 24 114/69 98 10/20/18 15:30 88 10 L 102/66 98 10/20/18 15:12 91 H 14 99 10/20/18 14:31 92 H 10 L 119/75 99 10/20/18 14:00 93 H 9 L 119/75 98 10/20/18 13:31 97 H 10 L 115/74 99 10/20/18 13:00 101 H 92 H 16 115/74 99 10/20/18 12:31 104 H 18 113/66 95 10/20/18 12:00 97 H 8 L 111/70 96 10/20/18 11:31 97 H 19 113/66 97 10/20/18 11:00 92 H 12 113/66 96 10/20/18 10:31 105 H 21 108/66 95 10/20/18 10:00 96 H 14 108/66 98 - Physical Examination HEENT: Positive: PERRL Neck: Positive: neck supple, trachea midline Cardiac: Positive: Reg Rate and Rhythm Lungs: Positive: Normal Exam Neuro: Positive: Grossly Intact - Labs and Meds Comprehensive Metabolic Panel 10/21/18 Range/Units 05:03 Sodium 135 L (137-145) mmol/L Potassium 4.0 (3.6-5.0) mmol/L Chloride 103.4 (98-107) mmol/L Carbon Dioxide 21 L (22-30) mmol/L BUN 28 H (7-17) mg/dL Creatinine 3.3 H (0.7-1.2) mg/dL Glucose 95 (65-100) mg/dL Calcium 8.2 L (8.4-10.2) mg/dL
[2018-10-21] MEDS: PERCOCET 5/325 PO PRN (11:41)
--- NOTE | 2018-10-21 11:44 | Progress Note ---
Hospitalist Physical - Constitutional Vitals: Temp Pulse Resp BP Pulse Ox 98.0 F 98 H 22 109/62 94 10/21/18 04:39 10/21/18 04:39 10/21/18 11:41 10/21/18 04:39 10/21/18 04:39 General appearance: Present: no acute distress, well-nourished, obese (morbidly obese) Results - Labs CBC & Chem 7: 10/20/18 04:50 10/21/18 05:03 Labs: Laboratory Last Values WBC 4.2 K/mm3 (4.5-11.0) L 10/20/18 04:50 RBC 3.12 M/mm3 (3.65-5.03) L 10/20/18 04:50 Hgb 10.8 gm/dl (10.1-14.3) 10/20/18 04:50 Hct 32.2 % (30.3-42.9) 10/20/18 04:50 MCV 103 fl (79-97) H 10/20/18 04:50 MCH 35 pg (28-32) H 10/20/18 04:50 MCHC 34 % (30-34) 10/20/18 04:50 RDW 25.1 % (13.2-15.2) H 10/20/18 04:50 Plt Count 84 K/mm3 (140-440) L 10/20/18 04:50 Add Manual Diff Complete 10/20/18 04:50 Total Counted 100 10/20/18 04:50 Seg Neuts % (Manual) 70.0 % (40.0-70.0) 10/20/18 04:50 Band Neutrophils % 0 % 10/20/18 04:50 Lymphocytes % (Manual) 22.0 % (13.4-35.0) 10/20/18 04:50 Reactive Lymphs % (Man) 0 % 10/20/18 04:50 Monocytes % (Manual) 8.0 % (0.0-7.3) H 10/20/18 04:50 Eosinophils % (Manual) 0 % (0.0-4.3) 10/20/18 04:50 Basophils % (Manual) 0 % (0.0-1.8) 10/20/18 04:50 Metamyelocytes % 0 % 10/20/18 04:50 Myelocytes % 0 % 10/20/18 04:50 Promyelocytes % 0 % 10/20/18 04:50 Blast Cells % 0 % 10/20/18 04:50 Nucleated RBC % Not Reportable 10/20/18 04:50 Seg Neutrophils # Man 2.9 K/mm3 (1.8-7.7) 10/20/18 04:50 Band Neutrophils # 0.0 K/mm3 10/20/18 04:50 Lymphocytes # (Manual) 0.9 K/mm3 (1.2-5.4) L 10/20/18 04:50 Abs React Lymphs (Man) 0.0 K/mm3 10/20/18 04:50 Monocytes # (Manual) 0.3 K/mm3 (0.0-0.8) 10/20/18 04:50 Eosinophils # (Manual) 0.0 K/mm3 (0.0-0.4) 10/20/18 04:50 Basophils # (Manual) 0.0 K/mm3 (0.0-0.1) 10/20/18 04:50 Metamyelocytes # 0.0 K/mm3 10/20/18 04:50 Myelocytes # 0.0 K/mm3 10/20/18 04:50 Promyelocytes # 0.0 K/mm3 10/20/18 04:50 Blast Cells # 0.0 K/mm3 10/20/18 04:50 WBC Morphology Not Reportable 10/20/18 04:50 Hypersegmented Neuts Not Reportable 10/20/18 04:50 Hyposegmented Neuts Not Reportable 10/20/18 04:50 Hypogranular Neuts Not Reportable 10/20/18 04:50 Smudge Cells Not Reportable 10/20/18 04:50 Toxic Granulation Not Reportable 10/20/18 04:50 Toxic Vacuolation Not Reportable 10/20/18 04:50 Dohle Bodies Not Reportable 10/20/18 04:50 Pelger-Huet Anomaly Not Reportable 10/20/18 04:50 Cece Rods Not Reportable 10/20/18 04:50 Platelet Estimate Consistent w auto 10/20/18 04:50 Clumped Platelets Not Reportable 10/20/18 04:50 Plt Clumps, EDTA Not Reportable 10/20/18 04:50 Large Platelets Not Reportable 10/20/18 04:50 Giant Platelets Not Reportable 10/20/18 04:50 Platelet Satelliting Not Reportable 10/20/18 04:50 Plt Morphology Comment Not Reportable 10/20/18 04:50 RBC Morphology Not Reportable 10/20/18 04:50 Dimorphic RBCs Not Reportable 10/20/18 04:50 Polychromasia Not Reportable 10/20/18 04:50 Hypochromasia Not Reportable 10/20/18 04:50 Poikilocytosis Not Reportable 10/20/18 04:50 Anisocytosis 1+ 10/20/18 04:50 Microcytosis Not Reportable 10/20/18 04:50 Macrocytosis Few 10/20/18 04:50 Spherocytes Not Reportable 10/20/18 04:50 Pappenheimer Bodies Not Reportable 10/20/18 04:50 Sickle Cells Not Reportable 10/20/18 04:50 Target Cells Few 10/20/18 04:50 Tear Drop Cells Not Reportable 10/20/18 04:50 Ovalocytes Not Reportable 10/20/18 04:50 Helmet Cells Not Reportable 10/20/18 04:50 [place] Bodies Not Reportable 10/20/18 04:50 [place] Rings Not Reportable 10/20/18 04:50 [place] Cells 1+ 10/20/18 04:50 Bite Cells Not Reportable 10/20/18 04:50 Crenated Cell Not Reportable 10/20/18 04:50 Elliptocytes Not Reportable 10/20/18 04:50 Acanthocytes (Spur) Not Reportable 10/20/18 04:50 Rouleaux Not Reportable 10/20/18 04:50 Hemoglobin C Crystals Not Reportable 10/20/18 04:50 Schistocytes Not Reportable 10/20/18 04:50 Malaria parasites Not Reportable 10/20/18 04:50 Bigg Bodies Not Reportable 10/20/18 04:50 Hem Pathologist Commnt No 10/20/18 04:50 PT 15.5 Sec. (12.2-14.9) H 10/17/18 14:09 INR 1.16 (0.87-1.13) H 10/17/18 14:09 APTT 28.0 Sec. (24.2-36.6) 10/17/18 14:09 Sodium 135 mmol/L (137-145) L 10/21/18 05:03 Potassium 4.0 mmol/L (3.6-5.0) 10/21/18 05:03 Chloride 103.4 mmol/L (98-107) 10/21/18 05:03 Carbon Dioxide 21 mmol/L (22-30) L 10/21/18 05:03 Anion Gap 15 mmol/L 10/21/18 05:03 BUN 28 mg/dL (7-17) H 10/21/18 05:03 Creatinine 3.3 mg/dL (0.7-1.2) H 10/21/18 05:03 Estimated GFR 14 ml/min 10/21/18 05:03 BUN/Creatinine Ratio 8 % 10/21/18 05:03 Glucose 95 mg/dL (65-100) 10/21/18 05:03 Calcium 8.2 mg/dL (8.4-10.2) L 10/21/18 05:03 Phosphorus 4.90 mg/dL (2.5-4.5) H 10/21/18 05:03 Magnesium 1.40 mg/dL (1.7-2.3) L 10/21/18 05:03 Total Bilirubin 0.30 mg/dL (0.1-1.2) 10/19/18 05:01 AST 7 units/L (5-40) 10/19/18 05:01 ALT 7 units/L (7-56) 10/19/18 05:01 Alkaline Phosphatase 66 units/L (35-129) 10/19/18 05:01 Total Creatine Kinase 60 units/L (30-135) 10/18/18 03:19 Troponin T < 0.010 ng/mL (0.00-0.029) 10/17/18 14:09 NT-Pro-B Natriuret Pep 1582 pg/mL (0-900) H 10/17/18 14:09 Total Protein 5.2 g/dL (6.3-8.2) L 10/19/18 05:01 Albumin 2.8 g/dL (3.9-5) L 10/19/18 05:01 Albumin/Globulin Ratio 1.2 % 10/19/18 05:01 Lipase 66 units/L (13-60) H 10/17/18 14:09 TSH 1.450 mlU/mL (0.270-4.200) 10/17/18 14:09 Free T4 0.52 ng/dL (0.76-1.46) L 10/17/18 14:09 PTH Intact 374.5 pg/mL (15-65) H 10/18/18 03: Urine Color Gely (Yellow) 10/17/18 19:30 Urine Turbidity Cloudy (Clear) 10/17/18 19: Urine pH 7.0 (5.0-7.0) 10/17/18 19:30 Ur Specific [place] 1.015 (1.003-1.030) 10/17/18 19: Urine Protein 100 mg/dl mg/dL (Negative) 10/17/18 19: Urine Glucose (UA) Neg mg/dL (Negative) 10/17/18 19: Urine Ketones Neg mg/dL (Negative) 10/17/18 19:30 Urine Blood Sm (Negative) 10/17/18 19: Urine Nitrite Neg (Negative) 10/17/18 19:30 Urine Bilirubin Neg (Negative) 10/17/18 19:30 Urine Urobilinogen < 2.0 mg/dL (<2.0) 10/17/18 19:30 Ur Leukocyte Esterase Lg (Negative) 10/17/18 19:30 Urine WBC (Auto) > 182.0 /HPF (0.0-6.0) H 10/17/18 19:30 Urine RBC (Auto) 9.0 /HPF (0.0-6.0) 10/17/18 19: U Epithel Cells (Auto) 9.0 /HPF (0-13.0) 10/17/18 19:30 Urine Bacteria (Auto) 2+ /HPF (Negative) 10/17/18 19:30 Urine Eosinophils None seen (None Seen) 10/17/18 19:30 Urine Creatinine 137.6 mg/dL (0.1-20.0) H 10/17/18 19:30 Urine Sodium 30 mmol/L 10/17/18 19:30 Plasma/Serum Alcohol < 0.01 % (0-0.07) 10/17/18 14:09 Hepatitis A IgM Ab Non-reactive (NonReactive) 10/17/18 14:09 Hep Bs Antigen Non-reactive (Negative) 10/17/18 14:09 Hep B Core IgM Ab Non-reactive (NonReactive) 10/17/18 14:09 Hepatitis C Antibody Non-reactive (NonReactive) 10/17/18 14:09 Blood Type A POSITIVE 10/17/18 14:09 Antibody Screen Negative 10/17/18 14:09 Active Medications - Current Medications Current Medications: Generic Name Dose Route Start Last Admin Trade Name Freq PRN Reason Stop Dose Admin Al Hydrox/Mg Hydrox/Simethicone 30 ml 10/19/18 16:03 Alum-Mag Hydrox-Simeth 993-317-32dd/5ml PO Q4H PRN Indigestion Albuterol 2.5 mg 10/17/18 16:26 Proventil IH Q3HRT PRN Shortness Of Breath Artificial Tears 1 drops 10/18/18 08:00 Isopto Tears 0.5% OU Q6H PRN Dry Eye(s) Atorvastatin Calcium 20 mg 10/17/18 22:00 10/20/18 23:38 Lipitor PO 20 mg QHS CAMRON Administration Ceftriaxone Sodium 1 gm in 50 mls @ 100 mls/hr 10/18/18 05:52 10/21/18 01:27 Rocephin/Ns 1 Gm/50 Ml IV Infused Q24HR CAMRON Infusion Protocol Sodium Chloride 100 mls @ 999 mls/hr 10/19/18 14:10 Nacl 0.9% IV RAJI PRN Hypotension Multivitamins/Minerals 1 each 10/19/18 10:00 10/21/18 09:04 Theragran-M Tab PO 1 each QDAY CAMRON Administration Oxycodone/Acetaminophen 1 tab 10/18/18 16:54 10/21/18 11:41 Percocet 5/325 PO 1 tab Q6H PRN Administration Pain, Moderate (4-6) Pantoprazole Sodium 40 mg 10/19/18 10:00 10/21/18 09:04 Protonix PO 40 mg QDAY CAMRON Administration Quetiapine Fumarate 100 mg 10/18/18 22:00 10/20/18 23:37 Seroquel PO 100 mg QHS CAMRON Administration Quetiapine Fumarate 200 mg 10/18/18 22:00 10/20/18 23:37 Seroquel PO 200 mg QHS CAMRON Administration Sodium Chloride 10 ml 10/17/18 22:00 03/29/19 09:04 Sodium Chloride Flush Syringe 10 Ml IV 10 ml BID CAMRON Administration Sodium Chloride 10 ml 10/17/18 16:26 Sodium Chloride Flush Syringe 10 Ml IV PRN PRN LINE FLUSH Trazodone HCl 50 mg 10/17/18 22:00 10/20/18 23:38 Desyrel PO 50 mg QHS CAMRON Administration
--- NOTE | 2018-10-21 14:48 | Progress Note ---
Assessment and Plan 1. Acute kidney injury: Likely vasomotor SULY superimposed on CKD. Unilateral kidney. Creatinine was 1.[address] abdomen was negative for hydronephrosis. Patient was dialyzed once on 10/19/18 due to suspected uremic symptoms. Monitor renal function and AUDIT SPEC needs. Renal prognosis is guarded. Avoid nephrotoxic agents. Meds dosage based on GFR. 2. FEN: Metabolic acidosis. Replete Mg. Will stop IV fluids due to edema. 3. GI bleed: Severe erosive Gastritis and Duodenitis. 4. Diastolic CHF. 5. H/o DVT / PE: Monitor. 6. H/o alcohol abuse. Subjective Date of service: 10/21/18 Principal diagnosis: GI bleed Interval history: Patient was seen and examined at the bedside. Feeling better. Objective - Vital Signs Vital signs: Vital Signs - 12hr 10/21/18 10/21/18 10/21/18 04:39 05:00 11:41 Temperature 98.0 F Pulse Rate 98 H Respiratory 18 16 22 Rate Blood Pressure 109/62 O2 Sat by Pulse 94 Oximetry 10/21/18 13:09 Temperature 98.4 F Pulse Rate 96 H Respiratory 18 Rate Blood Pressure 123/80 O2 Sat by Pulse 97 Oximetry - General Appearance General appearance: well-developed, well-nourished, appears stated age, obese, other (not in distress) EENT: ATNC, PERRL, mucous membranes moist, hearing intact, vision intact Neck: supple Respiratory: Present: Clear to Ascultation Cardiology: regular, S1S2, no murmurs Gastrointestinal: normoactive bowel sounds, no tenderness, no distended Integumentary: warm and dry Neurologic: no focal deficit, no asterixis, alert and oriented x3 Musculoskeletal: other (1 to 2+ edema of both LEs noted) - Lab 10/20/18 04:50 10/21/18 05:03 Most recent lab results Calcium 8.2 mg/dL (8.4-10.2) L 10/21/18 05:03 Phosphorus 4.90 mg/dL (2.5-4.5) H 10/21/18 05:03 Magnesium 1.40 mg/dL (1.7-2.3) L 10/21/18 05:03 Urine Creatinine 137.6 mg/dL (0.1-20.0) H 10/17/18 19:30 Urine Sodium 30 mmol/L 10/17/18 19:30 Medications & Allergies - Medications Allergies/Adverse Reactions: Allergies TORRIE INHIBITOR Allergy (Uncoded 03/22/14 15:42) Swelling IVP DYE Allergy (Uncoded 03/22/14 15:42) Itching Home Medications: Home Medications Medication Instructions Recorded Confirmed Last Taken Type Albuterol Sulfate [Ventolin Hfa] 18 gm IH PRN 10/17/18 10/17/18 Unknown History Dextran 70/Hypromellose/Pf 1 - 2 drop OP PRN 10/17/18 10/17/18 Unknown History [Artificial Tears Drops 1%/0.3%] Quetiapine Fumarate [Seroquel] 300 mg PO QHS 10/17/18 10/17/18 Unknown History Rivaroxaban [Xarelto] 20 mg PO QDAY 10/17/18 10/17/18 Unknown History Rosuvastatin Calcium [Crestor] 10 mg PO DAILY 10/17/18 10/17/18 Unknown History amLODIPine [Norvasc] 10 mg PO DAILY 10/17/18 10/17/18 Unknown History traZODone [Desyrel] 50 mg PO QHS 10/17/18 10/17/18 Unknown History Active Medications: Generic Name Dose Route Start Last Admin Trade Name Freq PRN Reason Stop Dose Admin Al Hydrox/Mg Hydrox/Simethicone 30 ml 10/19/18 16:03 Alum-Mag Hydrox-Simeth 083-061-45ve/5ml PO Q4H PRN Indigestion Albuterol 2.5 mg 10/17/18 16:26 Proventil IH Q3HRT PRN Shortness Of Breath Artificial Tears 1 drops 10/18/18 08:00 Isopto Tears 0.5% OU Q6H PRN Dry Eye(s) Atorvastatin Calcium 20 mg 10/17/18 22:00 10/20/18 23:38 Lipitor PO 20 mg QHS CAMRON Administration Ceftriaxone Sodium 1 gm in 50 mls @ 100 mls/hr 10/18/18 05:52 10/21/18 01:27 Rocephin/Ns 1 Gm/50 Ml IV Infused Q24HR [facility] Infusion Protocol Sodium Chloride 100 mls @ 999 mls/hr 10/19/18 14:10 Nacl 0.9% IV RAJI PRN Hypotension Multivitamins/Minerals 1 each 10/19/18 10:00 10/21/18 09:04 Theragran-M Tab PO 1 each QDAY [facility] Administration Oxycodone/Acetaminophen 1 tab 10/18/18 16:54 10/21/18 11:41 Percocet 5/325 PO 1 tab Q6H PRN Administration Pain, Moderate (4-6) Pantoprazole Sodium 40 mg 10/19/18 10:00 10/21/18 09:04 Protonix PO 40 mg QDAY [facility] Administration Quetiapine Fumarate 100 mg 10/18/18 22:00 10/20/18 23:37 Seroquel PO 100 mg QHS CAMRON Administration Quetiapine Fumarate 200 mg 10/18/18 22:00 10/20/18 23:37 Seroquel PO 200 mg QHS CAMRON Administration Sodium Chloride 10 ml 10/17/18 22:00 10/21/18 09:04 Sodium Chloride Flush Syringe 10 Ml IV 10 ml BID [facility]RON Administration Sodium Chloride 10 ml 10/17/18 16:26 Sodium Chloride Flush Syringe 10 Ml IV PRN PRN LINE FLUSH Trazodone HCl 50 mg 10/17/18 22:00 10/20/18 23:38 Desyrel PO 50 mg QHS CAMRON Administration
[2018-10-21] MEDS: ROCEPHIN/NS 1 GM/50 ML 1 GM/50 ML BAG IV SCH (14:57)
[2018-10-21] MEDS: MILK OF MAGNESIA PO PRN (16:29)
--- NOTE | 2018-10-21 19:53 | Progress Note ---
Assessment and Plan Assessment and plan: --Acute renal failure; tubular necrosis Nephrology Initiated hemodialysis, HD per schedule --Rectal bleeding; resolved GI evaluated the patient, s/p EGD; No blood/clots active Severe erosive antral gastritis and duodenitis, with friability Cold bx of antrum Likely source of anemia No varices Avoid NSAIDs, Protonix, follow-up GI upon discharge --Dyspepsia; Maalox as needed, Protonix, supportive care --Acute diastolic congestive heart failure; EF 50-55% Impaired relaxation of left ventricle Continue current management --Hypokalemia; replace per protocol and monitor levels --Hypomagnesemia; replace per protocol and monitor levels --Hyponatremia; closely monitor electrolytes and supportive care --H/O PE and DVT on Xeralto --Moderate hypoalbuminemia/malnutrition Nutrition supplements and supportive care --DVT prophylaxis; SCD No pharmacologic anticoagulation in view of GI bleeding Patient is stable to be transferred out of IMCU to medical floor History Interval history: Patient seen and examined medical records reviewed No new events reported by the nursing staff Alert awake oriented 3 not in acute distress Vital signs noted Hospitalist Physical - Constitutional Vitals: Temp Pulse Resp BP Pulse Ox 98.7 F 88 20 139/88 92 10/21/18 17:50 10/21/18 17:50 10/21/18 17:50 10/21/18 17:50 10/21/18 17:50 General appearance: Present: no acute distress, well-nourished, obese (morbidly obese) - EENT Eyes: Present: PERRL, EOM intact - Neck Neck: Present: supple, normal ROM - Respiratory Respiratory effort: normal Respiratory: bilateral: diminished, negative: rales, rhonchi, wheezing - Cardiovascular Rhythm: regular Heart Sounds: Present: S1 & S2 - Extremities Extremities: no ischemia, No edema - Abdominal General gastrointestinal: soft, non-tender, non-distended, normal bowel sounds - Integumentary Integumentary: Present: clear, warm - Psychiatric Psychiatric: appropriate mood/affect, cooperative - Neurologic Neurologic: CNII-XII intact, moves all extremities Results - Labs CBC & Chem 7: 10/20/18 04:50 10/21/18 05:03 Labs: Laboratory Last Values WBC 4.2 K/mm3 (4.5-11.0) L 10/20/18 04:50 RBC 3.12 M/mm3 (3.65-5.03) L 10/20/18 04:50 Hgb 10.8 gm/dl (10.1-14.3) 10/20/18 04:50 Hct 32.2 % (30.3-42.9) 10/20/18 04:50 MCV 103 fl (79-97) H 10/20/18 04:50 MCH 35 pg (28-32) H 10/20/18 04:50 MCHC 34 % (30-34) 10/20/18 04:50 RDW 25.1 % (13.2-15.2) H 10/20/18 04:50 Plt Count 84 K/mm3 (140-440) L 10/20/18 04:50 Add Manual Diff Complete 10/20/18 04:50 Total Counted 100 10/20/18 04:50 Seg Neuts % (Manual) 70.0 % (40.0-70.0) 10/20/18 04:50 Band Neutrophils % 0 % 10/20/18 04:50 Lymphocytes % (Manual) 22.0 % (13.4-35.0) 10/20/18 04:50 Reactive Lymphs % (Man) 0 % 10/20/18 04:50 Monocytes % (Manual) 8.0 % (0.0-7.3) H 10/20/18 04:50 Eosinophils % (Manual) 0 % (0.0-4.3) 10/20/18 04:50 Basophils % (Manual) 0 % (0.0-1.8) 10/20/18 04:50 Metamyelocytes % 0 % 10/20/18 04:50 Myelocytes % 0 % 10/20/18 04:50 Promyelocytes % 0 % 10/20/18 04:50 Blast Cells % 0 % 10/20/18 04:50 Nucleated RBC % Not Reportable 10/20/18 04:50 Seg Neutrophils # Man 2.9 K/mm3 (1.8-7.7) 10/20/18 04:50 Band Neutrophils # 0.0 K/mm3 10/20/18 04:50 Lymphocytes # (Manual) 0.9 K/mm3 (1.2-5.4) L 10/20/18 04:50 Abs React Lymphs (Man) 0.0 K/mm3 10/20/18 04:50 Monocytes # (Manual) 0.3 K/mm3 (0.0-0.8) 10/20/18 04:50 Eosinophils # (Manual) 0.0 K/mm3 (0.0-0.4) 10/20/18 04:50 Basophils # (Manual) 0.0 K/mm3 (0.0-0.1) 10/20/18 04:50 Metamyelocytes # 0.0 K/mm3 10/20/18 04:50 Myelocytes # 0.0 K/mm3 10/20/18 04:50 Promyelocytes # 0.0 K/mm3 10/20/18 04:50 Blast Cells # 0.0 K/mm3 10/20/18 04:50 WBC Morphology Not Reportable 10/20/18 04:50 Hypersegmented Neuts Not Reportable 10/20/18 04:50 Hyposegmented Neuts Not Reportable 10/20/18 04:50 Hypogranular Neuts Not Reportable 10/20/18 04:50 Smudge Cells Not Reportable 10/20/18 04:50 Toxic Granulation Not Reportable 10/20/18 04:50 Toxic Vacuolation Not Reportable 10/20/18 04:50 Dohle Bodies Not Reportable 10/20/18 04:50 Pelger-Huet Anomaly Not Reportable 10/20/18 04:50 Cece Rods Not Reportable 10/20/18 04:50 Platelet Estimate Consistent w auto 10/20/18 04:50 Clumped Platelets Not Reportable 10/20/18 04:50 Plt Clumps, EDTA Not Reportable 10/20/18 04:50 Large Platelets Not Reportable 10/20/18 04:50 Giant Platelets Not Reportable 10/20/18 04:50 Platelet Satelliting Not Reportable 10/20/18 04:50 Plt Morphology Comment Not Reportable 10/20/18 04:50 RBC Morphology Not Reportable 10/20/18 04:50 Dimorphic RBCs Not Reportable 10/20/18 04:50 Polychromasia Not Reportable 10/20/18 04:50 Hypochromasia Not Reportable 10/20/18 04:50 Poikilocytosis Not Reportable 10/20/18 04:50 Anisocytosis 1+ 10/20/18 04:50 Microcytosis Not Reportable 10/20/18 04:50 Macrocytosis Few 10/20/18 04:50 Spherocytes Not Reportable 10/20/18 04:50 Pappenheimer Bodies Not Reportable 10/20/18 04:50 Sickle Cells Not Reportable 10/20/18 04:50 Target Cells Few 10/20/18 04:50 Tear Drop Cells Not Reportable 10/20/18 04:50 Ovalocytes Not Reportable 10/20/18 04:50 Helmet Cells Not Reportable 10/20/18 04:50 [place] Bodies Not Reportable 10/20/18 04:50 [place] Rings Not Reportable 10/20/18 04:50 [place] Cells 1+ 10/20/18 04:50 Bite Cells Not Reportable 10/20/18 04:50 Crenated Cell Not Reportable 10/20/18 04:50 Elliptocytes Not Reportable 10/20/18 04:50 Acanthocytes (Spur) Not Reportable 10/20/18 04:50 Rouleaux Not Reportable 10/20/18 04:50 Hemoglobin C Crystals Not Reportable 10/20/18 04:50 Schistocytes Not Reportable 10/20/18 04:50 Malaria parasites Not Reportable 10/20/18 04:50 Bigg Bodies Not Reportable 10/20/18 04:50 Hem Pathologist Commnt No 10/20/18 04:50 PT 15.5 Sec. (12.2-14.9) H 10/17/18 14:09 INR 1.16 (0.87-1.13) H 10/17/18 14:09 APTT 28.0 Sec. (24.2-36.6) 10/17/18 14:09 Sodium 135 mmol/L (137-145) L 10/21/18 05:03 Potassium 4.0 mmol/L (3.6-5.0) 10/21/18 05:03 Chloride 103.4 mmol/L (98-107) 10/21/18 05:03 Carbon Dioxide 21 mmol/L (22-30) L 10/21/18 05:03 Anion Gap 15 mmol/L 10/21/18 05:03 BUN 28 mg/dL (7-17) H 10/21/18 05:03 Creatinine 3.3 mg/dL (0.7-1.2) H 10/21/18 05:03 Estimated GFR 14 ml/min 10/21/18 05:03 BUN/Creatinine Ratio 8 % 10/21/18 05:03 Glucose 95 mg/dL (65-100) 10/21/18 05:03 Calcium 8.2 mg/dL (8.4-10.2) L 10/21/18 05:03 Phosphorus 4.90 mg/dL (2.5-4.5) H 10/21/18 05:03 Magnesium 1.40 mg/dL (1.7-2.3) L 10/21/18 05:03 Total Bilirubin 0.30 mg/dL (0.1-1.2) 10/19/18 05:01 AST 7 units/L (5-40) 10/19/18 05:01 ALT 7 units/L (7-56) 10/19/18 05:01 Alkaline Phosphatase 66 units/L (35-129) 10/19/18 05:01 Total Creatine Kinase 60 units/L (30-135) 10/18/18 03:19 Troponin T < 0.010 ng/mL (0.00-0.029) 10/17/18 14:09 NT-Pro-B Natriuret Pep 1582 pg/mL (0-900) H 10/17/18 14:09 Total Protein 5.2 g/dL (6.3-8.2) L 10/19/18 05:01 Albumin 2.8 g/dL (3.9-5) L 10/19/18 05:01 Albumin/Globulin Ratio 1.2 % 10/19/18 05:01 Lipase 66 units/L (13-60) H 10/17/18 14:09 TSH 1.450 mlU/mL (0.270-4.200) 10/17/18 14:09 Free T4 0.52 ng/dL (0.76-1.46) L 10/17/18 14:09 PTH Intact 374.5 pg/mL (15-65) H 10/18/18 03:19 Urine Color [place] (Yellow) 10/17/18 19:30 Urine Turbidity Cloudy (Clear) 10/17/18 19:30 Urine pH 7.0 (5.0-7.0) 10/17/18 19:30 Ur Specific [place] 1.015 (1.003-1.030) 10/17/18 19:30 Urine Protein 100 mg/dl mg/dL (Negative) 10/17/18 19:30 Urine Glucose (UA) Neg mg/dL (Negative) 10/17/18 19:30 Urine Ketones Neg mg/dL (Negative) 10/17/18 19:30 Urine Blood Sm (Negative) 10/17/18 19:30 Urine Nitrite Neg (Negative) 10/17/18 19:30 Urine Bilirubin Neg (Negative) 10/17/18 19:30 Urine Urobilinogen < 2.0 mg/dL (<2.0) 10/17/18 19:30 Ur Leukocyte Esterase Lg (Negative) 10/17/18 19:30 Urine WBC (Auto) > 182.0 /HPF (0.0-6.0) H 10/17/18 19:30 Urine RBC (Auto) 9.0 /HPF (0.0-6.0) 10/17/18 19:30 U Epithel Cells (Auto) 9.0 /HPF (0-13.0) 10/17/18 19:30 Urine Bacteria (Auto) 2+ /HPF (Negative) 10/17/18 19:30 Urine Eosinophils None seen (None Seen) 10/17/18 19:30 Urine Creatinine 137.6 mg/dL (0.1-20.0) H 10/17/18 19:30 Urine Sodium 30 mmol/L 10/17/18 19:30 Plasma/Serum Alcohol < 0.01 % (0-0.07) 10/17/18 14:09 Hepatitis A IgM Ab Non-reactive (NonReactive) 10/17/18 14:09 Hep Bs Antigen Non-reactive (Negative) 10/17/18 14:09 Hep B Core IgM Ab Non-reactive (NonReactive) 10/17/18 14:09 Hepatitis C Antibody Non-reactive (NonReactive) 10/17/18 14:09 Blood Type A POSITIVE 10/17/18 14:09 Antibody Screen Negative 10/17/18 14:09 Active Medications - Current Medications Current Medications: Generic Name Dose Route Start Last Admin Trade Name Freq PRN Reason Stop Dose Admin Al Hydrox/Mg Hydrox/Simethicone 30 ml 10/19/18 16:03 Alum-Mag Hydrox-Simeth 811-596-61fh/5ml PO Q4H PRN Indigestion Albuterol 2.5 mg 10/17/18 16:26 Proventil IH Q3HRT PRN Shortness Of Breath Artificial Tears 1 drops 10/18/18 08:00 Isopto Tears 0.5% OU Q6H PRN Dry Eye(s) Atorvastatin Calcium 20 mg 10/17/18 22:00 10/20/18 23:38 Lipitor PO 20 mg QHS CAMRON Administration Ceftriaxone Sodium 1 gm in 50 mls @ 100 mls/hr 10/18/18 05:52 10/21/18 14:57 Rocephin/Ns 1 Gm/50 Ml IV 100 mls/hr Q24HR [facility]RON Administration Protocol Sodium Chloride 100 mls @ 999 mls/hr 10/19/18 14:10 Nacl 0.9% IV RAJI PRN Hypotension Magnesium Hydroxide 30 ml 10/21/18 14:47 10/21/18 16:29 Milk Of Magnesia PO 30 ml Q4H PRN Administration Constipation Multivitamins/Minerals 1 each 10/19/18 10:00 10/21/18 09:04 Theragran-M Tab PO 1 each QDAY [facility] Administration Oxycodone/Acetaminophen 1 tab 10/18/18 16:54 10/21/18 11:41 Percocet 5/325 PO 1 tab Q6H PRN Administration Pain, Moderate (4-6) Pantoprazole Sodium 40 mg 10/19/18 10:00 10/21/18 09:04 Protonix PO 40 mg QDAY [facility] Administration Quetiapine Fumarate 100 mg 10/18/18 22:00 10/20/18 23:37 Seroquel PO 100 mg QHS [facility] Administration Quetiapine Fumarate 200 mg 10/18/18 22:00 10/20/18 23:37 Seroquel PO 200 mg QHS [facility] Administration Sodium Chloride 10 ml 10/17/18 22:00 10/21/18 09:04 Sodium Chloride Flush Syringe 10 Ml IV 10 ml BID [facility] Administration Sodium Chloride 10 ml 10/17/18 16:26 Sodium Chloride Flush Syringe 10 Ml IV PRN PRN LINE FLUSH Trazodone HCl 50 mg 10/17/18 22:00 10/20/18 23:38 Desyrel PO 50 mg QHS [facility]RON Administration
[2018-10-21] MEDS: DESYREL PO SCH (21:41)
[2018-10-22 06:00] LABS: Albumin 2.5 g/dL (3.8-4.8); Gamma Globulin 0.6 g/dL (0.8-1.7)
[2018-10-22 06:52] LABS: Calcium 8.5 mg/dL (8.4-10.2)
[2018-10-22] MEDS: THERAGRAN-M Tab PO SCH (09:48)
[2018-10-22] MEDS: PROTONIX PO SCH (09:48)
[2018-10-22] MEDS: ROCEPHIN/NS 1 GM/50 ML 1 GM/50 ML BAG IV SCH (09:48)
[2018-10-22] MEDS: MILK OF MAGNESIA PO PRN (09:48)
[2018-10-22] MEDS: SODIUM CHLORIDE FLUSH SYRINGE 10 ML IV SCH ×3 (09:54→22:15)
--- NOTE | 2018-10-22 10:03 | Progress Note ---
Assessment and Plan Assessment and plan: --Constipation; stool softeners, Dulcolax suppository enema if no improvement --Acute renal failure; tubular necrosis Nephrology Initiated hemodialysis, HD per schedule --Rectal bleeding; resolved s/p EGD; No blood/clots active Severe erosive antral gastritis and duodenitis, with friability Cold bx of antrum, Likely source of anemia No varices,Avoid NSAIDs, Protonix, follow-up GI upon discharge --Dyspepsia; Maalox as needed, Protonix, supportive care --Acute diastolic congestive heart failure; EF 50-55% Impaired relaxation of left ventricle Continue current management --Hypomagnesemia; corrected--Hyponatremia; improved --H/O PE and DVT on Xeralto --Moderate hypoalbuminemia/malnutrition Nutrition supplements and supportive care --DVT prophylaxis; SCD No pharmacologic anticoagulation in view of GI bleeding Consults and recommendations noted History Interval history: Seen and examined medical records reviewed Patient complains of constipation Yesterday had 1 dose of milk of magnesia Alert awake oriented 3 Vital signs noted Hospitalist Physical - Constitutional Vitals: Temp Pulse Resp BP Pulse Ox 98.3 F 101 H 20 115/71 80 L 10/21/18 23:28 10/22/18 05:07 10/22/18 05:07 10/22/18 05:07 10/22/18 05:07 General appearance: Present: no acute distress, well-nourished, obese (morbidly obese) - EENT Eyes: Present: PERRL, EOM intact - Neck Neck: Present: supple, normal ROM - Respiratory Respiratory effort: normal Respiratory: bilateral: diminished, negative: rales, rhonchi, wheezing - Cardiovascular Rhythm: regular Heart Sounds: Present: S1 & S2 - Extremities Extremities: no ischemia, No edema - Abdominal General gastrointestinal: soft, non-tender, non-distended, normal bowel sounds - Integumentary Integumentary: Present: clear, warm - Psychiatric Psychiatric: appropriate mood/affect, cooperative - Neurologic Neurologic: CNII-XII intact, moves all extremities Results - Labs CBC & Chem 7: 10/20/18 04:50 10/22/18 05:24 Labs: Laboratory Last Values WBC 4.2 K/mm3 (4.5-11.0) L 10/20/18 04:50 RBC 3.12 M/mm3 (3.65-5.03) L 10/20/18 04:50 Hgb 10.8 gm/dl (10.1-14.3) 10/20/18 04:50 Hct 32.2 % (30.3-42.9) 10/20/18 04:50 MCV 103 fl (79-97) H 10/20/18 04:50 MCH 35 pg (28-32) H 10/20/18 04:50 MCHC 34 % (30-34) 10/20/18 04:50 RDW 25.1 % (13.2-15.2) H 10/20/18 04:50 Plt Count 84 K/mm3 (140-440) L 10/20/18 04:50 Add Manual Diff Complete 10/20/18 04:50 Total Counted 100 10/20/18 04:50 Seg Neuts % (Manual) 70.0 % (40.0-70.0) 10/20/18 04:50 Band Neutrophils % 0 % 10/20/18 04:50 Lymphocytes % (Manual) 22.0 % (13.4-35.0) 10/20/18 04:50 Reactive Lymphs % (Man) 0 % 10/20/18 04:50 Monocytes % (Manual) 8.0 % (0.0-7.3) H 10/20/18 04:50 Eosinophils % (Manual) 0 % (0.0-4.3) 10/20/18 04:50 Basophils % (Manual) 0 % (0.0-1.8) 10/20/18 04:50 Metamyelocytes % 0 % 10/20/18 04:50 Myelocytes % 0 % 10/20/18 04:50 Promyelocytes % 0 % 10/20/18 04:50 Blast Cells % 0 % 10/20/18 04:50 Nucleated RBC % Not Reportable 10/20/18 04:50 Seg Neutrophils # Man 2.9 K/mm3 (1.8-7.7) 10/20/18 04:50 Band Neutrophils # 0.0 K/mm3 10/20/18 04:50 Lymphocytes # (Manual) 0.9 K/mm3 (1.2-5.4) L 10/20/18 04:50 Abs React Lymphs (Man) 0.0 K/mm3 10/20/18 04:50 Monocytes # (Manual) 0.3 K/mm3 (0.0-0.8) 10/20/18 04:50 Eosinophils # (Manual) 0.0 K/mm3 (0.0-0.4) 10/20/18 04:50 Basophils # (Manual) 0.0 K/mm3 (0.0-0.1) 10/20/18 04:50 Metamyelocytes # 0.0 K/mm3 10/20/18 04:50 Myelocytes # 0.0 K/mm3 10/20/18 04:50 Promyelocytes # 0.0 K/mm3 10/20/18 04:50 Blast Cells # 0.0 K/mm3 10/20/18 04:50 WBC Morphology Not Reportable 10/20/18 04:50 Hypersegmented Neuts Not Reportable 10/20/18 04:50 Hyposegmented Neuts Not Reportable 10/20/18 04:50 Hypogranular Neuts Not Reportable 10/20/18 04:50 Smudge Cells Not Reportable 10/20/18 04:50 Toxic Granulation Not Reportable 10/20/18 04:50 Toxic Vacuolation Not Reportable 10/20/18 04:50 Dohle Bodies Not Reportable 10/20/18 04:50 Pelger-Huet Anomaly Not Reportable 10/20/18 04:50 Cece Rods Not Reportable 10/20/18 04:50 Platelet Estimate Consistent w auto 10/20/18 04:50 Clumped Platelets Not Reportable 10/20/18 04:50 Plt Clumps, EDTA Not Reportable 10/20/18 04:50 Large Platelets Not Reportable 10/20/18 04:50 Giant Platelets Not Reportable 10/20/18 04:50 Platelet Satelliting Not Reportable 10/20/18 04:50 Plt Morphology Comment Not Reportable 10/20/18 04:50 RBC Morphology Not Reportable 10/20/18 04:50 Dimorphic RBCs Not Reportable 10/20/18 04:50 Polychromasia Not Reportable 10/20/18 04:50 Hypochromasia Not Reportable 10/20/18 04:50 Poikilocytosis Not Reportable 10/20/18 04:50 Anisocytosis 1+ 10/20/18 04:50 Microcytosis Not Reportable 10/20/18 04:50 Macrocytosis Few 10/20/18 04:50 Spherocytes Not Reportable 10/20/18 04:50 Pappenheimer Bodies Not Reportable 10/20/18 04:50 Sickle Cells Not Reportable 10/20/18 04:50 Target Cells Few 10/20/18 04:50 Tear Drop Cells Not Reportable 10/20/18 04:50 Ovalocytes Not Reportable 10/20/18 04:50 Helmet Cells Not Reportable 10/20/18 04:50 Kaba-Hanahan Bodies Not Reportable 10/20/18 04:50 [place] Rings Not Reportable 10/20/18 04:50 Tish Cells 1+ 10/20/18 04:50 Bite Cells Not Reportable 10/20/18 04:50 Crenated Cell Not Reportable 10/20/18 04:50 Elliptocytes Not Reportable 10/20/18 04:50 Acanthocytes (Spur) Not Reportable 10/20/18 04:50 Rouleaux Not Reportable 10/20/18 04:50 Hemoglobin C Crystals Not Reportable 10/20/18 04:50 Schistocytes Not Reportable 10/20/18 04:50 Malaria parasites Not Reportable 10/20/18 04:50 Bigg Bodies Not Reportable 10/20/18 04:50 Hem Pathologist Commnt No 10/20/18 04:50 PT 15.5 Sec. (12.2-14.9) H 10/17/18 14:09 INR 1.16 (0.87-1.13) H 10/17/18 14:09 APTT 28.0 Sec. (24.2-36.6) 10/17/18 14:09 Sodium 140 mmol/L (137-145) 10/22/18 05:24 Potassium 4.1 mmol/L (3.6-5.0) 10/22/18 05:24 Chloride 106.2 mmol/L (98-107) 10/22/18 05:24 Carbon Dioxide 22 mmol/L (22-30) 10/22/18 05:24 Anion Gap 16 mmol/L 10/22/18 05:24 BUN 28 mg/dL (7-17) H 10/22/18 05:24 Creatinine 2.9 mg/dL (0.7-1.2) H 10/22/18 05:24 Estimated GFR 17 ml/min 10/22/18 05:24 BUN/Creatinine Ratio 10 % 10/22/18 05:24 Glucose 94 mg/dL (65-100) 10/22/18 05:24 Calcium 8.5 mg/dL (8.4-10.2) 10/22/18 05:24 Phosphorus 4.90 mg/dL (2.5-4.5) H 10/21/18 05:03 Magnesium 1.70 mg/dL (1.7-2.3) 10/22/18 05:24 Total Bilirubin 0.30 mg/dL (0.1-1.2) 10/19/18 05:01 AST 7 units/L (5-40) 10/19/18 05:01 ALT 7 units/L (7-56) 10/19/18 05:01 Alkaline Phosphatase 66 units/L (35-129) 10/19/18 05:01 Total Creatine Kinase 60 units/L (30-135) 10/18/18 03:19 Troponin T < 0.010 ng/mL (0.00-0.029) 10/17/18 14:09 NT-Pro-B Natriuret Pep 1582 pg/mL (0-900) H 10/17/18 14:09 Serum Total Protein 4.8 g/dL (6.1-8.1) L 10/19/18 05:01 Total Protein 5.2 g/dL (6.3-8.2) L 10/19/18 05:01 Albumin 2.5 g/dL (3.8-4.8) L 10/19/18 05:01 Albumin/Globulin Ratio 1.2 % 10/19/18 05:01 Szmos-9-Bopscmmbp 0.5 g/dL (0.2-0.3) H 10/19/18 05:01 Ycdyx-4-Lpzotrgbi 0.7 g/dL (0.5-0.9) 10/19/18 05:01 Beta Globulins 0.2 g/dL (0.2-0.5) 10/19/18 05:01 Gamma Globulins 0.6 g/dL (0.8-1.7) L 10/19/18 05:01 Abnorm Protein Band 1 see below 10/19/18 05:01 PEP Interpretation see below H 10/19/18 05:01 Lipase 66 units/L (13-60) H 10/17/18 14:09 TSH 1.450 mlU/mL (0.270-4.200) 10/17/18 14:09 Free T4 0.52 ng/dL (0.76-1.46) L 10/17/18 14:09 PTH Intact 374.5 pg/mL (15-65) H 10/18/18 03: Urine Color Gely (Yellow) 10/17/18 19:30 Urine Turbidity Cloudy (Clear) 10/17/18 19:30 Urine pH 7.0 (5.0-7.0) 10/17/18 19:30 Ur Specific [place] 1.015 (1.003-1.030) 10/17/18 19:30 Urine Protein 100 mg/dl mg/dL (Negative) 10/17/18 19:30 Urine Glucose (UA) Neg mg/dL (Negative) 10/17/18 19:30 Urine Ketones Neg mg/dL (Negative) 10/17/18 19:30 Urine Blood Sm (Negative) 10/17/18 19:30 Urine Nitrite Neg (Negative) 10/17/18 19:30 Urine Bilirubin Neg (Negative) 10/17/18 19:30 Urine Urobilinogen < 2.0 mg/dL (<2.0) 10/17/18 19:30 Ur Leukocyte Esterase Lg (Negative) 10/17/18 19:30 Urine WBC (Auto) > 182.0 /HPF (0.0-6.0) H 10/17/18 19:30 Urine RBC (Auto) 9.0 /HPF (0.0-6.0) 10/17/18 19:30 U Epithel Cells (Auto) 9.0 /HPF (0-13.0) 10/17/18 19:30 Urine Bacteria (Auto) 2+ /HPF (Negative) 10/17/18 19:30 Urine Eosinophils None seen (None Seen) 10/17/18 19:30 Urine Creatinine 137.6 mg/dL (0.1-20.0) H 10/17/18 19:30 Urine Sodium 30 mmol/L 10/17/18 19:30 Plasma/Serum Alcohol < 0.01 % (0-0.07) 10/17/18 14:09 Hepatitis A IgM Ab Non-reactive (NonReactive) 10/17/18 14:09 Hep Bs Antigen Non-reactive (Negative) 10/17/18 14:09 Hep B Core IgM Ab Non-reactive (NonReactive) 10/17/18 14:09 Hepatitis C Antibody Non-reactive (NonReactive) 10/17/18 14:09 Blood Type A POSITIVE 10/17/18 14:09 Antibody Screen Negative 10/17/18 14:09 Active Medications - Current Medications Current Medications: Generic Name Dose Route Start Last Admin Trade Name Freq PRN Reason Stop Dose Admin Al Hydrox/Mg Hydrox/Simethicone 30 ml 10/19/18 16:03 Alum-Mag Hydrox-Simeth 622-848-18pc/5ml PO Q4H PRN Indigestion Albuterol 2.5 mg 10/17/18 16:26 Proventil IH Q3HRT PRN Shortness Of Breath Artificial Tears 1 drops 10/18/18 08:00 Isopto Tears 0.5% OU Q6H PRN Dry Eye(s) Atorvastatin Calcium 20 mg 10/17/18 22:00 10/21/18 21:41 Lipitor PO 20 mg QHS CAMRON Administration Ceftriaxone Sodium 1 gm in 50 mls @ 100 mls/hr 10/18/18 05:52 10/22/18 09:48 Rocephin/Ns 1 Gm/50 Ml IV 100 mls/hr Q24HR CAMRON Administration Protocol Sodium Chloride 100 mls @ 999 mls/hr 10/19/18 14:10 Nacl 0.9% IV RAJI PRN Hypotension Magnesium Hydroxide 30 ml 10/21/18 14:47 10/22/18 09:48 Milk Of Magnesia PO 30 ml Q4H PRN Administration Constipation Multivitamins/Minerals 1 each 10/19/18 10:00 10/22/18 09:48 Theragran-M Tab PO 1 each QDAY CAMRON Administration Oxycodone/Acetaminophen 1 tab 10/18/18 16:54 10/21/18 11:41 Percocet 5/325 PO 1 tab Q6H PRN Administration Pain, Moderate (4-6) Pantoprazole Sodium 40 mg 10/19/18 10:00 10/22/18 09:48 Protonix PO 40 mg QDAY CAMRON Administration Quetiapine Fumarate 100 mg 10/18/18 22:00 10/21/18 21:42 Seroquel PO 100 mg QHS CAMRON Administration Quetiapine Fumarate 200 mg 10/18/18 22:00 10/21/18 21:42 Seroquel PO 200 mg QHS CAMRON Administration Sodium Chloride 10 ml 10/17/18 22:00 10/22/18 09:54 Sodium Chloride Flush Syringe 10 Ml IV 10 ml BID CAMRON Administration Sodium Chloride 10 ml 10/17/18 16:26 Sodium Chloride Flush Syringe 10 Ml IV PRN PRN LINE FLUSH Trazodone HCl 50 mg 10/17/18 22:00 10/21/18 21:41 Desyrel PO 50 mg QHS CAMRON Administration
[2018-10-22] MEDS ORDERED: DULCOLAX PR ONE (11:00)
--- NOTE | 2018-10-22 12:57 | Progress Note ---
Assessment and Plan - Patient Problems (1) GI bleed Current Visit: Yes Status: Acute Qualifiers: GI bleed type/associated pathology: unspecified gastrointestinal hemorrhage type Qualified Code(s): K92.2 - Gastrointestinal hemorrhage, unspecified Plan to address problem: GI bleed and anemia management in progress, no active cardiac issues. We will follow intermittently. Subjective Date of service: 10/22/18 Principal diagnosis: GI bleed Interval history: Patient is comfortable, no cardiac complaints. Objective Vital Signs Temp Pulse Pulse Resp BP Pulse Ox 10/22/18 11:16 98.1 F 102 H 22 113/74 84 10/22/18 05:07 101 H 20 115/71 80 L 10/22/18 05:00 18 10/21/18 23:28 98.3 F 100 H 20 151/89 83 L 10/21/18 21:54 93 10/21/18 17:50 98.7 F 88 20 139/88 92 10/21/18 17:00 92 H 10/21/18 16:00 92 H 10/21/18 13:09 98.4 F 96 H 18 123/80 97 - Physical Examination General: Appears Well, No Apparent Distress HEENT: Positive: PERRL Neck: Positive: neck supple, trachea midline Cardiac: Positive: Reg Rate and Rhythm Lungs: Positive: Decreased Breath Sounds Neuro: Positive: Grossly Intact Abdomen: Positive: Soft Skin: Positive: Clear Extremities: Absent: edema - Labs and Meds Comprehensive Metabolic Panel 10/19/18 10/22/18 Range/Units 05:01 05:24 Sodium 140 (137-145) mmol/L Potassium 4.1 (3.6-5.0) mmol/L Chloride 106.2 (98-107) mmol/L Carbon Dioxide 22 (22-30) mmol/L BUN 28 H (7-17) mg/dL Creatinine 2.9 H (0.7-1.2) mg/dL Glucose 94 (65-100) mg/dL Calcium 8.5 (8.4-10.2) mg/dL Albumin 2.5 L (3.8-4.8) g/dL
[2018-10-22] MEDS ORDERED: NACL 0.9% 100 ML IV PRN (13:00)
--- NOTE | 2018-10-22 13:05 | Progress Note ---
Assessment and Plan Periph Edema - UF on HD today ATN - HD & f/u labs Vitals - F/u closely Subjective Date of service: 10/22/18 Principal diagnosis: GI bleed Interval history: No complaints Objective - Vital Signs Vital signs: Vital Signs - 12hr 10/22/18 10/22/18 10/22/18 05:00 05:07 11:16 Temperature 98.1 F Pulse Rate 101 H 102 H Respiratory 18 20 22 Rate Blood Pressure 115/71 113/74 O2 Sat by Pulse 80 L 84 Oximetry - General Appearance General appearance: other (Awake & alert, sitting up in bed) EENT: PERRL Neck: supple Respiratory: Present: Other (Good air entry) Cardiology: regular, S1S2, other (++LE Edema) Gastrointestinal: obese, other Musculoskeletal: other (++LE Edema) - Lab 10/20/18 04:50 10/22/18 05:24 Most recent lab results Calcium 8.5 mg/dL (8.4-10.2) 10/22/18 05:24 Phosphorus 4.90 mg/dL (2.5-4.5) H 10/21/18 05:03 Magnesium 1.70 mg/dL (1.7-2.3) 10/22/18 05:24 Urine Creatinine 137.6 mg/dL (0.1-20.0) H 10/17/18 19:30 Urine Sodium 30 mmol/L 10/17/18 19:30 Medications & Allergies - Medications Allergies/Adverse Reactions: Allergies TORRIE INHIBITOR Allergy (Uncoded 03/22/14 15:42) Swelling IVP DYE Allergy (Uncoded 03/22/14 15:42) Itching Home Medications: Home Medications Medication Instructions Recorded Confirmed Last Taken Type Albuterol Sulfate [Ventolin Hfa] 18 gm IH PRN 10/17/18 10/17/18 Unknown History Dextran 70/Hypromellose/Pf 1 - 2 drop OP PRN 10/17/18 10/17/18 Unknown History [Artificial Tears Drops 1%/0.3%] Quetiapine Fumarate [Seroquel] 300 mg PO QHS 10/17/18 10/17/18 Unknown History Rivaroxaban [Xarelto] 20 mg PO QDAY 10/17/18 10/17/18 Unknown History Rosuvastatin Calcium [Crestor] 10 mg PO DAILY 10/17/18 10/17/18 Unknown History amLODIPine [Norvasc] 10 mg PO DAILY 10/17/18 10/17/18 Unknown History traZODone [Desyrel] 50 mg PO QHS 10/17/18 10/17/18 Unknown History Active Medications: Generic Name Dose Route Start Last Admin Trade Name Freq PRN Reason Stop Dose Admin Al Hydrox/Mg Hydrox/Simethicone 30 ml 10/19/18 16:03 Alum-Mag Hydrox-Simeth 362-872-00wf/5ml PO Q4H PRN Indigestion Albuterol 2.5 mg 10/17/18 16:26 Proventil IH Q3HRT PRN Shortness Of Breath Artificial Tears 1 drops 10/18/18 08:00 Isopto Tears 0.5% OU Q6H PRN Dry Eye(s) Atorvastatin Calcium 20 mg 10/17/18 22:00 10/21/18 21:41 Lipitor PO 20 mg QHS CAMRON Administration Bisacodyl 10 mg 10/23/18 08:00 Dulcolax HI QDAY PRN Constipation Ceftriaxone Sodium 1 gm in 50 mls @ 100 mls/hr 10/18/18 05:52 10/22/18 09:48 Rocephin/Ns 1 Gm/50 Ml IV 100 mls/hr Q24HR CAMRON Administration Protocol Sodium Chloride 100 mls @ 999 mls/hr 10/19/18 14:10 Nacl 0.9% IV RAJI PRN Hypotension Magnesium Hydroxide 30 ml 10/21/18 14:47 10/22/18 09:48 Milk Of Magnesia PO 30 ml Q4H PRN Administration Constipation Multivitamins/Minerals 1 each 10/19/18 10:00 10/22/18 09:48 Theragran-M Tab PO 1 each QDAY CAMRON Administration Oxycodone/Acetaminophen 1 tab 10/18/18 16:54 10/21/18 11:41 Percocet 5/325 PO 1 tab Q6H PRN Administration Pain, Moderate (4-6) Pantoprazole Sodium 40 mg 10/19/18 10:00 10/22/18 09:48 Protonix PO 40 mg QDAY CAMRON Administration Quetiapine Fumarate 100 mg 10/18/18 22:00 10/21/18 21:42 Seroquel PO 100 mg QHS CAMRON Administration Quetiapine Fumarate 200 mg 10/18/18 22:00 10/21/18 21:42 Seroquel PO 200 mg QHS CAMRON Administration Sodium Chloride 10 ml 10/17/18 22:00 10/22/18 09:54 Sodium Chloride Flush Syringe 10 Ml IV 10 ml BID CAMRON Administration Sodium Chloride 10 ml 10/17/18 16:26 Sodium Chloride Flush Syringe 10 Ml IV PRN PRN LINE FLUSH Trazodone HCl 50 mg 10/17/18 22:00 10/21/18 21:41 Desyrel PO 50 mg QHS CAMRON Administration
[2018-10-22] MEDS: PERCOCET 5/325 PO PRN (17:02)
[2018-10-22] MEDS: DESYREL PO SCH (22:14)
[2018-10-22] MEDS: MORPHINE IV PRN (23:45)
[2018-10-23 06:09] LABS: Hematocrit 30.1 % (30.3-42.9); Hemoglobin 10.1 gm/dl (10.1-14.3); Mean Corpuscular HGB Conc 33 % (30-34); Mean Corpuscular Volume 106 fl (79-97); Platelet Count 110 K/mm3 (140-440); Red Blood Count 2.85 M/mm3 (3.65-5.03)
[2018-10-23 06:26] LABS: Calcium 8.8 mg/dL (8.4-10.2)
[2018-10-23] MEDS ORDERED: DULCOLAX PR PRN (08:00)
--- NOTE | 2018-10-23 08:25 | Progress Note ---
Assessment and Plan Assessment and plan: -Acute renal failure; tubular necrosis Nephrology Initiated hemodialysis, HD per schedule --Rectal bleeding; resolved s/p EGD;No blood/clots active Severe erosive antral gastritis and duodenitis, with friability Cold bx of antrum, Likely source of anemia No varices,Avoid NSAIDs, Protonix, follow-up GI upon discharge --Possible UTI : received 5 days emperic antibiotic rocephen. symptoms resolved , dc antibiotic --Constipation; stool softeners, Dulcolax suppository: Improved --Dyspepsia;;Maalox as needed, Protonix, supportive care --Acute diastolic congestive heart failure; EF 50-55% Impaired relaxation of left ventricle Continue current management --Hypomagnesemia; corrected--Hyponatremia; improved --H/O PE and DVT on Xeralto --Moderate hypoalbuminemia/malnutrition Nutrition supplements and supportive care --DVT prophylaxis; SCD No pharmacologic anticoagulation in view of GI bleeding Consults and recommendations noted Discharge planning. PER Case management; outpatient HD at time, HHS upon discharge Plan of care is reviewed with the patient and her nurse History Interval history: Patient seen and examined medical records reviewed Patient feels better complaints of generalized body pains Constipation relieved, Alert awake oriented 3 Vital signs noted Hospitalist Physical - Constitutional Vitals: Temp Pulse Resp BP Pulse Ox 98.6 F 91 H 20 102/64 89 10/22/18 23:30 10/23/18 05:10 10/23/18 05:10 10/23/18 05:10 10/23/18 05:10 General appearance: Present: no acute distress, well-nourished, obese (morbidly obese) - EENT Eyes: Present: PERRL, EOM intact - Neck Neck: Present: supple, normal ROM - Respiratory Respiratory effort: normal Respiratory: bilateral: diminished, rales, negative: rhonchi, wheezing - Cardiovascular Rhythm: regular Heart Sounds: Present: S1 & S2 - Extremities Extremities: no ischemia Extremity abnormal: edema - Abdominal General gastrointestinal: soft, non-tender, non-distended, normal bowel sounds - Integumentary Integumentary: Present: clear, warm - Psychiatric Psychiatric: appropriate mood/affect, cooperative - Neurologic Neurologic: CNII-XII intact, moves all extremities Results - Labs CBC & Chem 7: 10/23/18 05:29 10/23/18 05:29 Labs: Laboratory Last Values WBC 3.8 K/mm3 (4.5-11.0) L 10/23/18 05:29 RBC 2.85 M/mm3 (3.65-5.03) L 10/23/18 05:29 Hgb 10.1 gm/dl (10.1-14.3) 10/23/18 05:29 Hct 30.1 % (30.3-42.9) L 10/23/18 05:29 MCV 106 fl (79-97) H 10/23/18 05:29 MCH 35 pg (28-32) H 10/23/18 05:29 MCHC 33 % (30-34) 10/23/18 05:29 RDW 25.0 % (13.2-15.2) H 10/23/18 05:29 Plt Count 110 K/mm3 (140-440) L 10/23/18 05:29 [place] % (Auto) Rubble Placer 10/23/18 05:29 Add Manual Diff Complete 10/20/18 04:50 Total Counted 100 10/20/18 04:50 Seg Neuts % (Manual) 70.0 % (40.0-70.0) 10/20/18 04:50 Band Neutrophils % 0 % 10/20/18 04:50 Lymphocytes % (Manual) 22.0 % (13.4-35.0) 10/20/18 04:50 Reactive Lymphs % (Man) 0 % 10/20/18 04:50 Monocytes % (Manual) 8.0 % (0.0-7.3) H 10/20/18 04:50 Eosinophils % (Manual) 0 % (0.0-4.3) 10/20/18 04:50 Basophils % (Manual) 0 % (0.0-1.8) 10/20/18 04:50 Metamyelocytes % 0 % 10/20/18 04:50 Myelocytes % 0 % 10/20/18 04:50 Promyelocytes % 0 % 10/20/18 04:50 Blast Cells % 0 % 10/20/18 04:50 Nucleated RBC % Not Reportable 10/20/18 04:50 Seg Neutrophils # Man 2.9 K/mm3 (1.8-7.7) 10/20/18 04:50 Band Neutrophils # 0.0 K/mm3 10/20/18 04:50 Lymphocytes # (Manual) 0.9 K/mm3 (1.2-5.4) L 10/20/18 04:50 Abs React Lymphs (Man) 0.0 K/mm3 10/20/18 04:50 Monocytes # (Manual) 0.3 K/mm3 (0.0-0.8) 10/20/18 04:50 Eosinophils # (Manual) 0.0 K/mm3 (0.0-0.4) 10/20/18 04:50 Basophils # (Manual) 0.0 K/mm3 (0.0-0.1) 10/20/18 04:50 Metamyelocytes # 0.0 K/mm3 10/20/18 04:50 Myelocytes # 0.0 K/mm3 10/20/18 04:50 Promyelocytes # 0.0 K/mm3 10/20/18 04:50 Blast Cells # 0.0 K/mm3 10/20/18 04:50 WBC Morphology Not Reportable 10/20/18 04:50 Hypersegmented Neuts Not Reportable 10/20/18 04:50 Hyposegmented Neuts Not Reportable 10/20/18 04:50 Hypogranular Neuts Not Reportable 10/20/18 04:50 Smudge Cells Not Reportable 10/20/18 04:50 Toxic Granulation Not Reportable 10/20/18 04:50 Toxic Vacuolation Not Reportable 10/20/18 04:50 Dohle Bodies Not Reportable 10/20/18 04:50 Pelger-Huet Anomaly Not Reportable 10/20/18 04:50 Cece Rods Not Reportable 10/20/18 04:50 Platelet Estimate Consistent w auto 10/20/18 04:50 Clumped Platelets Not Reportable 10/20/18 04:50 Plt Clumps, EDTA Not Reportable 10/20/18 04:50 Large Platelets Not Reportable 10/20/18 04:50 Giant Platelets Not Reportable 10/20/18 04:50 Platelet Satelliting Not Reportable 10/20/18 04:50 Plt Morphology Comment Not Reportable 10/20/18 04:50 RBC Morphology Not Reportable 10/20/18 04:50 Dimorphic RBCs Not Reportable 10/20/18 04:50 Polychromasia Not Reportable 10/20/18 04:50 Hypochromasia Not Reportable 10/20/18 04:50 Poikilocytosis Not Reportable 10/20/18 04:50 Anisocytosis 1+ 10/20/18 04:50 Microcytosis Not Reportable 10/20/18 04:50 Macrocytosis Few 10/20/18 04:50 Spherocytes Not Reportable 10/20/18 04:50 Pappenheimer Bodies Not Reportable 10/20/18 04:50 Sickle Cells Not Reportable 10/20/18 04:50 Target Cells Few 10/20/18 04:50 Tear Drop Cells Not Reportable 10/20/18 04:50 Ovalocytes Not Reportable 10/20/18 04:50 Helmet Cells Not Reportable 10/20/18 04:50 K[place] Bodies Not Reportable 10/20/18 04:50 [place] Rings Not Reportable 10/20/18 04:50 [place] Cells 1+ 10/20/18 04:50 Bite Cells Not Reportable 10/20/18 04:50 Crenated Cell Not Reportable 10/20/18 04:50 Elliptocytes Not Reportable 10/20/18 04:50 Acanthocytes (Spur) Not Reportable 10/20/18 04:50 Rouleaux Not Reportable 10/20/18 04:50 Hemoglobin C Crystals Not Reportable 10/20/18 04:50 Schistocytes Not Reportable 10/20/18 04:50 Malaria parasites Not Reportable 10/20/18 04:50 Bigg Bodies Not Reportable 10/20/18 04:50 Hem Pathologist Commnt No 10/20/18 04:50 PT 15.5 Sec. (12.2-14.9) H 10/17/18 14:09 INR 1.16 (0.87-1.13) H 10/17/18 14:09 APTT 28.0 Sec. (24.2-36.6) 10/17/18 14:09 Sodium 139 mmol/L (137-145) 10/23/18 05:29 Potassium 4.0 mmol/L (3.6-5.0) 10/23/18 05:29 Chloride 101.0 mmol/L (98-107) 10/23/18 05:29 Carbon Dioxide 27 mmol/L (22-30) 10/23/18 05:29 Anion Gap 15 mmol/L 10/23/18 05:29 BUN 15 mg/dL (7-17) 10/23/18 05:29 Creatinine 1.6 mg/dL (0.7-1.2) H 10/23/18 05:29 Estimated GFR 33 ml/min 10/23/18 05:29 BUN/Creatinine Ratio 9 % 10/23/18 05:29 Glucose 92 mg/dL (65-100) 10/23/18 05:29 Calcium 8.8 mg/dL (8.4-10.2) 10/23/18 05:29 Phosphorus 3.30 mg/dL (2.5-4.5) 10/23/18 05:29 Magnesium 1.60 mg/dL (1.7-2.3) L 10/23/18 05:29 Total Bilirubin 0.30 mg/dL (0.1-1.2) 10/19/18 05:01 AST 7 units/L (5-40) 10/19/18 05:01 ALT 7 units/L (7-56) 10/19/18 05:01 Alkaline Phosphatase 66 units/L (35-129) 10/19/18 05:01 Total Creatine Kinase 60 units/L (30-135) 10/18/18 03:19 Troponin T < 0.010 ng/mL (0.00-0.029) 10/17/18 14:09 NT-Pro-B Natriuret Pep 1582 pg/mL (0-900) H 10/17/18 14:09 Serum Total Protein 4.8 g/dL (6.1-8.1) L 10/19/18 05:01 Total Protein 5.2 g/dL (6.3-8.2) L 10/19/18 05:01 Albumin 2.5 g/dL (3.8-4.8) L 10/19/18 05:01 Albumin/Globulin Ratio 1.2 % 10/19/18 05:01 Nchiu-6-Mykndwzub 0.5 g/dL (0.2-0.3) H 10/19/18 05:01 Xuiaa-0-Jojegaper 0.7 g/dL (0.5-0.9) 10/19/18 05:01 Beta Globulins 0.2 g/dL (0.2-0.5) 10/19/18 05:01 Gamma Globulins 0.6 g/dL (0.8-1.7) L 10/19/18 05:01 Abnorm Protein Band 1 see below 10/19/18 05:01 PEP Interpretation see below H 10/19/18 05:01 Lipase 66 units/L (13-60) H 10/17/18 14:09 TSH 1.450 mlU/mL (0.270-4.200) 10/17/18 14:09 Free T4 0.52 ng/dL (0.76-1.46) L 10/17/18 14:09 PTH Intact 374.5 pg/mL (15-65) H 10/18/18 03: Urine Color Gely (Yellow) 10/17/18 19: Urine Turbidity Cloudy (Clear) 10/17/18 19: Urine pH 7.0 (5.0-7.0) 10/17/18 19:30 Ur Specific Crane 1.015 (1.003-1.030) 10/17/18 19:30 Urine Protein 100 mg/dl mg/dL (Negative) 10/17/18 19:30 Urine Glucose (UA) Neg mg/dL (Negative) 10/17/18 19:30 Urine Ketones Neg mg/dL (Negative) 10/17/18 19:30 Urine Blood Sm (Negative) 10/17/18 19:30 Urine Nitrite Neg (Negative) 10/17/18 19:30 Urine Bilirubin Neg (Negative) 10/17/18 19:30 Urine Urobilinogen < 2.0 mg/dL (<2.0) 10/17/18 19:30 Ur Leukocyte Esterase Lg (Negative) 10/17/18 19:30 Urine WBC (Auto) > 182.0 /HPF (0.0-6.0) H 10/17/18 19:30 Urine RBC (Auto) 9.0 /HPF (0.0-6.0) 10/17/18 19: U Epithel Cells (Auto) 9.0 /HPF (0-13.0) 10/17/18 19:30 Urine Bacteria (Auto) 2+ /HPF (Negative) 10/17/18 19: Urine Eosinophils None seen (None Seen) 10/17/18 19: Urine Creatinine 137.6 mg/dL (0.1-20.0) H 10/17/18 19:30 Urine Sodium 30 mmol/L 10/17/18 19:30 Plasma/Serum Alcohol < 0.01 % (0-0.07) 10/17/18 14:09 Complement C3 140 mg/dL (83-193) 10/19/18 05:01 Complement C4 37 mg/dL (15-57) 10/19/18 05:01 Hepatitis A IgM Ab Non-reactive (NonReactive) 10/17/18 14:09 Hep Bs Antigen Non-reactive (Negative) 10/17/18 14:09 Hep B Core IgM Ab Non-reactive (NonReactive) 10/17/18 14:09 Hepatitis C Antibody Non-reactive (NonReactive) 10/17/18 14:09 Blood Type A POSITIVE 10/17/18 14:09 Antibody Screen Negative 10/17/18 14:09 Active Medications - Current Medications Current Medications: Generic Name Dose Route Start Last Admin Trade Name Freq PRN Reason Stop Dose Admin Al Hydrox/Mg Hydrox/Simethicone 30 ml 10/19/18 16:03 Alum-Mag Hydrox-Simeth 484-128-57vq/5ml PO Q4H PRN Indigestion Albuterol 2.5 mg 10/17/18 16:26 Proventil IH Q3HRT PRN Shortness Of Breath Artificial Tears 1 drops 10/18/18 08:00 Isopto Tears 0.5% OU Q6H PRN Dry Eye(s) Atorvastatin Calcium 20 mg 10/17/18 22:00 10/22/18 22:13 Lipitor PO 20 mg QHS CAMRON Administration Bisacodyl 10 mg 10/23/18 08:00 Dulcolax MS QDAY PRN Constipation Sodium Chloride 100 mls @ 999 mls/hr 10/19/18 14:10 Nacl 0.9% IV RAJI PRN Hypotension Sodium Chloride 100 mls @ 999 mls/hr 10/22/18 13:00 Nacl 0.9% IV RAJI PRN Hypotension Magnesium Hydroxide 30 ml 10/21/18 14:47 10/22/18 09:48 Milk Of Magnesia PO 30 ml Q4H PRN Administration Constipation Morphine Sulfate 2 mg 10/22/18 23:21 10/22/18 23:45 Morphine IV 2 mg Q4H PRN Administration Pain , Severe (7-10) Multivitamins/Minerals 1 each 10/19/18 10:00 10/22/18 09:48 Theragran-M Tab PO 1 each QDAY CAMRON Administration Oxycodone/Acetaminophen 1 tab 10/18/18 16:54 10/22/18 17:02 Percocet 5/325 PO 1 tab Q6H PRN Administration Pain, Moderate (4-6) Pantoprazole Sodium 40 mg 10/19/18 10:00 10/22/18 09:48 Protonix PO 40 mg QDAY CAMRON Administration Quetiapine Fumarate 100 mg 10/18/18 22:00 10/22/18 22:14 Seroquel PO 100 mg QHS CAMRON Administration Quetiapine Fumarate 200 mg 10/18/18 22:00 10/22/18 22:13 Seroquel PO 200 mg QHS CAMRON Administration Sodium Chloride 10 ml 10/17/18 22:00 10/22/18 22:15 Sodium Chloride Flush Syringe 10 Ml IV 10 ml BID CAMRON Administration Sodium Chloride 10 ml 10/17/18 16:26 Sodium Chloride Flush Syringe 10 Ml IV PRN PRN LINE FLUSH Trazodone HCl 50 mg 10/17/18 22:00 10/22/18 22:14 Desyrel PO 50 mg QHS CAMRON Administration
[2018-10-23] MEDS ORDERED: MAGNESIUM SULFATE 2GM/50ML 2 GM/50 ML BAG IV ONE ×2 (09:00→11:00)
[2018-10-23] MEDS: SODIUM CHLORIDE FLUSH SYRINGE 10 ML IV SCH ×2 (09:11→21:06)
[2018-10-23] MEDS: PROTONIX PO SCH (09:11)
[2018-10-23] MEDS: THERAGRAN-M Tab PO SCH (09:11)
[2018-10-23] MEDS: PERCOCET 5/325 PO PRN (09:14)
[2018-10-23] MEDS: MILK OF MAGNESIA PO PRN (09:14)
[2018-10-23 10:12] LABS: Basophils % (Manual) 0 % (0.0-1.8); Eosinophils % (Manual) 0 % (0.0-4.3); Hypochromasia Few; Ovalocytes Few; Platelet Estimate Consistent w Auto; Target Cells Few; Total Cells Counted 100
--- NOTE | 2018-10-23 10:59 | Progress Note ---
Assessment and Plan SULY - Hold HD & f/u improving fxn Periph Edema - Resolving, f/u urine output Lytes - Replenish Mg Vitals - F/u closely Subjective Date of service: 10/23/18 Principal diagnosis: GI bleed Objective - Vital Signs Vital signs: Vital Signs - 12hr 10/22/18 10/22/18 10/22/18 23:00 23:17 23:19 Temperature 98.6 F 98.6 F Pulse Rate 104 H 93 H Respiratory 20 20 Rate Blood Pressure 105/69 Blood Pressure [Left] O2 Sat by Pulse 93 81 L 90 Oximetry 10/22/18 10/22/18 10/23/18 23:30 23:45 00:15 Temperature 98.6 F Pulse Rate 103 H Respiratory 20 17 17 Rate Blood Pressure Blood Pressure 105/69 [Left] O2 Sat by Pulse 91 Oximetry 10/23/18 10/23/18 10/23/18 05:10 08:28 10:40 Temperature Pulse Rate 91 H Respiratory 20 Rate Blood Pressure 102/64 Blood Pressure [Left] O2 Sat by Pulse 89 89 93 Oximetry - General Appearance General appearance: other (Awake & alert) Neck: no JVD Respiratory: Present: Other (Good air entry) Cardiology: regular, S1S2 Gastrointestinal: obese Neurologic: no focal deficit - Lab 10/23/18 05:29 10/23/18 05:29 Most recent lab results Calcium 8.8 mg/dL (8.4-10.2) 10/23/18 05:29 Phosphorus 3.30 mg/dL (2.5-4.5) 10/23/18 05:29 Magnesium 1.60 mg/dL (1.7-2.3) L 10/23/18 05:29 Urine Creatinine 137.6 mg/dL (0.1-20.0) H 10/17/18 19:30 Urine Sodium 30 mmol/L 10/17/18 19:30 Medications & Allergies - Medications Allergies/Adverse Reactions: Allergies TORRIE INHIBITOR Allergy (Uncoded 03/22/14 15:42) Swelling IVP DYE Allergy (Uncoded 03/22/14 15:42) Itching Home Medications: Home Medications Medication Instructions Recorded Confirmed Last Taken Type Albuterol Sulfate [Ventolin Hfa] 18 gm IH PRN 10/17/18 10/17/18 Unknown History Dextran 70/Hypromellose/Pf 1 - 2 drop OP PRN 10/17/18 10/17/18 Unknown History [Artificial Tears Drops 1%/0.3%] Quetiapine Fumarate [Seroquel] 300 mg PO QHS 10/17/18 10/17/18 Unknown History Rivaroxaban [Xarelto] 20 mg PO QDAY 10/17/18 10/17/18 Unknown History Rosuvastatin Calcium [Crestor] 10 mg PO DAILY 10/17/18 10/17/18 Unknown History amLODIPine [Norvasc] 10 mg PO DAILY 10/17/18 10/17/18 Unknown History traZODone [Desyrel] 50 mg PO QHS 10/17/18 10/17/18 Unknown History Active Medications: Generic Name Dose Route Start Last Admin Trade Name Freq PRN Reason Stop Dose Admin Al Hydrox/Mg Hydrox/Simethicone 30 ml 10/19/18 16:03 Alum-Mag Hydrox-Simeth 325-398-99he/5ml PO Q4H PRN Indigestion Albuterol 2.5 mg 10/17/18 16:26 Proventil IH Q3HRT PRN Shortness Of Breath Artificial Tears 1 drops 10/18/18 08:00 Isopto Tears 0.5% OU Q6H PRN Dry Eye(s) Atorvastatin Calcium 20 mg 10/17/18 22:00 10/22/18 22:13 Lipitor PO 20 mg QHS CAMRON Administration Bisacodyl 10 mg 10/23/18 08:00 Dulcolax ME QDAY PRN Constipation Sodium Chloride 100 mls @ 999 mls/hr 10/19/18 14:10 Nacl 0.9% IV RAJI PRN Hypotension Sodium Chloride 100 mls @ 999 mls/hr 10/22/18 13:00 Nacl 0.9% IV RAJI PRN Hypotension Magnesium Sulfate 2 gm in 50 mls @ 25 mls/hr 10/23/18 09:00 10/23/18 10:41 Magnesium Sulfate 2gm/50ml IV 10/23/18 10:59 25 mls/hr ONCE ONE Administration Magnesium Hydroxide 30 ml 10/21/18 14:47 10/23/18 09:14 Milk Of Magnesia PO 30 ml Q4H PRN Administration Constipation Morphine Sulfate 2 mg 10/22/18 23:21 10/22/18 23:45 Morphine IV 2 mg Q4H PRN Administration Pain , Severe (7-10) Multivitamins/Minerals 1 each 10/19/18 10:00 10/23/18 09:11 Theragran-M Tab PO 1 each QDAY CAMRON Administration Oxycodone/Acetaminophen 1 tab 10/18/18 16:54 10/23/18 09:14 Percocet 5/325 PO 1 tab Q6H PRN Administration Pain, Moderate (4-6) Pantoprazole Sodium 40 mg 10/19/18 10:00 10/23/18 09:11 Protonix PO 40 mg QDAY CAMRON Administration Quetiapine Fumarate 100 mg 10/18/18 22:00 10/22/18 22:14 Seroquel PO 100 mg QHS CAMRON Administration Quetiapine Fumarate 200 mg 10/18/18 22:00 10/22/18 22:13 Seroquel PO 200 mg QHS CAMRON Administration Sodium Chloride 10 ml 10/17/18 22:00 10/23/18 09:11 Sodium Chloride Flush Syringe 10 Ml IV 10 ml BID CAMRON Administration Sodium Chloride 10 ml 10/17/18 16:26 Sodium Chloride Flush Syringe 10 Ml IV PRN PRN LINE FLUSH Trazodone HCl 50 mg 10/17/18 22:00 10/22/18 22:14 Desyrel PO 50 mg QHS CAMRON Administration
[2018-10-23] MEDS: MORPHINE IV PRN ×2 (15:27→21:05)
[2018-10-23] MEDS: DESYREL PO SCH (21:06)
[2018-10-24] MEDS: MORPHINE IV PRN (03:02)
[2018-10-24 08:11] LABS: Albumin 2.8 g/dL (3.9-5); BUN/Creatinine Ratio 11; Blood Urea Nitrogen 20 mg/dL (7-17); Calcium 8.9 mg/dL (8.4-10.2); Hemolysis Index 6
[2018-10-24 08:19] LABS: Alanine Aminotransferase < 5 units/L (7-56)
[2018-10-24] MEDS: PERCOCET 5/325 PO PRN (09:41)
[2018-10-24] MEDS: THERAGRAN-M Tab PO SCH (09:42)
[2018-10-24] MEDS: PROTONIX PO SCH (09:42)
[2018-10-24] MEDS: SODIUM CHLORIDE FLUSH SYRINGE 10 ML IV SCH ×2 (09:43→21:47)
[2018-10-24] MEDS: MILK OF MAGNESIA PO PRN (12:01)
--- NOTE | 2018-10-24 13:11 | Progress Note ---
Assessment and Plan 1. Acute kidney injury: Likely vasomotor SULY superimposed on CKD. Unilateral kidney. Creatinine was 1.[address] abdomen was negative for hydronephrosis. Patient was dialyzed once on 10/19/18 due to suspected uremic symptoms. Renal function is better. Hemodialysis catheter was removed. Monitor renal function. Renal prognosis is guarded. Avoid nephrotoxic agents. Meds dosage based on GFR. 2. ANCA positive: Suspected Vasculitis. Need kidney biopsy for definitive diagnosis. Patient has only one kidney. If the renal function is stable will have her see Physician Industrial prior to kidney biopsy. 3, FEN: Monitor lytes. 4. GI bleed: Severe erosive Gastritis and Duodenitis. 5. Diastolic CHF. 6. H/o DVT / PE: Monitor. 7. H/o alcohol abuse. Subjective Date of service: 10/24/18 Principal diagnosis: GI bleed Interval history: Patient was seen and examined at the bedside. Feeling ok. Objective - Vital Signs Vital signs: Vital Signs - 12hr 10/24/18 10/24/18 10/24/18 03:02 03:32 04:20 Temperature 98.5 F Pulse Rate 98 H Respiratory 22 20 18 Rate Blood Pressure 102/46 O2 Sat by Pulse 91 Oximetry 10/24/18 10/24/18 10:00 12:59 Temperature 98.6 F Pulse Rate 98 H 90 Respiratory 16 Rate Blood Pressure 110/73 O2 Sat by Pulse 92 Oximetry - General Appearance General appearance: well-developed, well-nourished, appears stated age, obese, other (not in distress) EENT: ATNC, PERRL, mucous membranes moist, hearing intact, vision intact Neck: supple Respiratory: Present: Clear to Ascultation Cardiology: regular, S1S2, no murmurs Gastrointestinal: normoactive bowel sounds, no tenderness, no distended Integumentary: warm and dry Neurologic: no focal deficit, no asterixis, alert and oriented x3 Musculoskeletal: other (1 to 2+ edema of both LEs noted) Psychiatric: cooperative - Lab 10/23/18 05:29 10/24/18 06:08 Most recent lab results Calcium 8.9 mg/dL (8.4-10.2) 10/24/18 06:08 Phosphorus 3.80 mg/dL (2.5-4.5) 10/24/18 06:08 Magnesium 2.10 mg/dL (1.7-2.3) 10/24/18 06:08 Urine Creatinine 137.6 mg/dL (0.1-20.0) H 10/17/18 19:30 Urine Sodium 30 mmol/L 10/17/18 19:30 Medications & Allergies - Medications Allergies/Adverse Reactions: Allergies TORRIE INHIBITOR Allergy (Uncoded 03/22/14 15:42) Swelling IVP DYE Allergy (Uncoded 03/22/14 15:42) Itching Home Medications: Home Medications Medication Instructions Recorded Confirmed Last Taken Type Albuterol Sulfate [Ventolin Hfa] 18 gm IH PRN 10/17/18 10/17/18 Unknown History Dextran 70/Hypromellose/Pf 1 - 2 drop OP PRN 10/17/18 10/17/18 Unknown History [Artificial Tears Drops 1%/0.3%] Quetiapine Fumarate [Seroquel] 300 mg PO QHS 10/17/18 10/17/18 Unknown History Rivaroxaban [Xarelto] 20 mg PO QDAY 10/17/18 10/17/18 Unknown History Rosuvastatin Calcium [Crestor] 10 mg PO DAILY 10/17/18 10/17/18 Unknown History amLODIPine [Norvasc] 10 mg PO DAILY 10/17/18 10/17/18 Unknown History traZODone [Desyrel] 50 mg PO QHS 10/17/18 10/17/18 Unknown History Active Medications: Generic Name Dose Route Start Last Admin Trade Name Freq PRN Reason Stop Dose Admin Al Hydrox/Mg Hydrox/Simethicone 30 ml 10/19/18 16:03 Alum-Mag Hydrox-Simeth 042-013-06es/5ml PO Q4H PRN Indigestion Albuterol 2.5 mg 10/17/18 16:26 Proventil IH Q3HRT PRN Shortness Of Breath Artificial Tears 1 drops 10/18/18 08:00 Isopto Tears 0.5% OU Q6H PRN Dry Eye(s) Atorvastatin Calcium 20 mg 10/17/18 22:00 10/23/18 21:06 Lipitor PO 20 mg QHS CAMRON Administration Bisacodyl 10 mg 10/23/18 08:00 Dulcolax [place] QDAY PRN Constipation Sodium Chloride 100 mls @ 999 mls/hr 10/22/18 13:00 Nacl 0.9% IV RAJI PRN Hypotension Magnesium Hydroxide 30 ml 10/21/18 14:47 10/24/18 12:01 Milk Of Magnesia PO 30 ml Q4H PRN Administration Constipation Morphine Sulfate 2 mg 10/22/18 23:21 10/24/18 03:02 Morphine IV 2 mg Q4H PRN Administration Pain , Severe (7-10) Multivitamins/Minerals 1 each 10/19/18 10:00 10/24/18 09:42 Theragran-M Tab PO 1 each QDAY CAMRON Administration Oxycodone/Acetaminophen 1 tab 10/18/18 16:54 10/24/18 09:41 Percocet 5/325 PO 1 tab Q6H PRN Administration Pain, Moderate (4-6) Pantoprazole Sodium 40 mg 10/19/18 10:00 10/24/18 09:42 Protonix PO 40 mg QDAY CAMRON Administration Quetiapine Fumarate 100 mg 10/18/18 22:00 10/23/18 21:06 Seroquel PO 100 mg QHS CAMRON Administration Quetiapine Fumarate 200 mg 10/18/18 22:00 10/23/18 21:06 Seroquel PO 200 mg QHS CAMRON Administration Sodium Chloride 10 ml 10/17/18 22:00 10/24/18 09:43 Sodium Chloride Flush Syringe 10 Ml IV 10 ml BID CAMRON Administration Sodium Chloride 10 ml 10/17/18 16:26 Sodium Chloride Flush Syringe 10 Ml IV PRN PRN LINE FLUSH Trazodone HCl 50 mg 10/17/18 22:00 10/23/18 21:06 Desyrel PO 50 mg QHS CAMRON Administration
--- NOTE | 2018-10-24 14:37 | Post Operative Note ---
Date of procedure: 10/24/18 Pre-op diagnosis: ATN, resolved Post-op diagnosis: same Procedure: permcath removal Anesthesia: local Surgeon: GIBSON HATHAWAY Estimated blood loss: minimal Condition: stable Disposition: no change
[2018-10-24] MEDS ORDERED: PERCOCET 5/325 PO ONE (14:38)
--- NOTE | 2018-10-24 14:53 | Operative Report ---
Operative Report Operative Report: EXAM: Tunneled catheter removal DATE: 10/24/18 INDICATION: EN, resolved, no further need of hemodialysis MEDICATIONS: Please see nursing report for full details. SKILLS AUDITOR: GIBSON HATHAWAY MD CONTRAST: None PROCEDURE: The risks, benefits, and alternatives were discussed; written informed consent was obtained. The patient was positioned with the head towards the contralateral side. The tunneled catheter was prepped and draped in a sterile fashion. Lidocaine was infiltrated at the dermatotomy site. Heparin was withdrawn from both lumens. Using a hemostat, blunt dissection was performed and the cuff was extracted. The catheter was extracted and pressure was held at the venotomy and dermatotomy site until hemostasis was achieved. Sterile bandage was then applied. Pressure bandage applied. The patient tolerated the procedure without issue. FINDINGS: Successful removal of the tunneled catheter. IMPRESSION: Successful removal of the right chest tunneled catheter.
[2018-10-24 15:10] LABS: Myeloperoxidase Antibody 7.3 AI (<1.0)
--- NOTE | 2018-10-24 19:16 | Progress Note ---
Assessment and Plan Assessment and plan: -Acute renal failure; tubular necrosis Nephrology Initiated hemodialysis, HD per schedule Renal function gradually improving, monitor off dialysis --Rectal bleeding; resolved s/p EGD;No blood/clots active Severe erosive antral gastritis and duodenitis, with friability Cold bx of antrum, Likely source of anemia No varices,Avoid NSAIDs, Protonix, follow-up GI upon discharge --Possible UTI : received 5 days emperic antibiotic rocephen. symptoms resolved , dc antibiotic --Constipation; stool softeners, resolved --Dyspepsia;;Maalox as needed, --Acute diastolic congestive heart failure; EF 50-55% Impaired relaxation of left ventricle Continue current management --Hypomagnesemia; corrected --Hyponatremia; improved --H/O PE and DVT on Xeralto --Moderate hypoalbuminemia/malnutrition Nutrition supplements and supportive care --Obesity; advised weight reduction as tolerated when medically stable --DVT prophylaxis; SCD No pharmacologic anticoagulation in view of GI bleeding Consults and recommendations noted Physical therapy as tolerated Possible discharge in 1-2 days if stable with home health Plan of care is reviewed with the patient and her nurse History Interval history: Patient seen and examined medical records reviewed Patient feels slightly better no new complaints Nephrology monitoring patient off dialysis Alert awake oriented 3 Vital signs noted Hospitalist Physical - Constitutional Vitals: Temp Pulse Resp BP Pulse Ox 98.3 F 90 18 123/73 96 10/24/18 17:40 10/24/18 17:40 10/24/18 17:40 10/24/18 17:40 10/24/18 17:43 General appearance: Present: no acute distress, well-nourished, obese (morbidly obese) - EENT Eyes: Present: PERRL, EOM intact - Neck Neck: Present: supple, normal ROM - Respiratory Respiratory effort: normal Respiratory: bilateral: diminished, rales, negative: rhonchi - Cardiovascular Rhythm: regular Heart Sounds: Present: S1 & S2 - Extremities Extremities: no ischemia, No edema Peripheral Pulses: within normal limits - Abdominal General gastrointestinal: soft, non-tender, non-distended, normal bowel sounds - Integumentary Integumentary: Present: clear, warm - Psychiatric Psychiatric: appropriate mood/affect, cooperative - Neurologic Neurologic: CNII-XII intact, moves all extremities Results - Labs CBC & Chem 7: 10/23/18 05:29 10/24/18 06:08 Labs: Laboratory Last Values WBC 3.8 K/mm3 (4.5-11.0) L 10/23/18 05:29 RBC 2.85 M/mm3 (3.65-5.03) L 10/23/18 05:29 Hgb 10.1 gm/dl (10.1-14.3) 10/23/18 05:29 Hct 30.1 % (30.3-42.9) L 10/23/18 05:29 MCV 106 fl (79-97) H 10/23/18 05:29 MCH 35 pg (28-32) H 10/23/18 05:29 MCHC 33 % (30-34) 10/23/18 05:29 RDW 25.0 % (13.2-15.2) H 10/23/18 05:29 Plt Count 110 K/mm3 (140-440) L 10/23/18 05:29 [place] % (Auto) [employer]rolley [employer] 10/23/18 05:29 Add Manual Diff Complete 10/23/18 05:29 Total Counted 100 10/23/18 05:29 Seg Neuts % (Manual) 59.0 % (40.0-70.0) 10/23/18 05:29 Band Neutrophils % 0 % 10/23/18 05:29 Lymphocytes % (Manual) 29.0 % (13.4-35.0) 10/23/18 05:29 Reactive Lymphs % (Man) 1.0 % 10/23/18 05:29 Monocytes % (Manual) 11.0 % (0.0-7.3) H 10/23/18 05:29 Eosinophils % (Manual) 0 % (0.0-4.3) 10/23/18 05:29 Basophils % (Manual) 0 % (0.0-1.8) 10/23/18 05:29 Metamyelocytes % 0 % 10/23/18 05:29 Myelocytes % 0 % 10/23/18 05:29 Promyelocytes % 0 % 10/23/18 05:29 Blast Cells % 0 % 10/23/18 05:29 Nucleated RBC % Not Reportable 10/23/18 05:29 Seg Neutrophils # Man 2.2 K/mm3 (1.8-7.7) 10/23/18 05:29 Band Neutrophils # 0.0 K/mm3 10/23/18 05:29 Lymphocytes # (Manual) 1.1 K/mm3 (1.2-5.4) L 10/23/18 05:29 Abs React Lymphs (Man) 0.0 K/mm3 10/23/18 05:29 Monocytes # (Manual) 0.4 K/mm3 (0.0-0.8) 10/23/18 05:29 Eosinophils # (Manual) 0.0 K/mm3 (0.0-0.4) 10/23/18 05:29 Basophils # (Manual) 0.0 K/mm3 (0.0-0.1) 10/23/18 05:29 Metamyelocytes # 0.0 K/mm3 10/23/18 05:29 Myelocytes # 0.0 K/mm3 10/23/18 05:29 Promyelocytes # 0.0 K/mm3 10/23/18 05:29 Blast Cells # 0.0 K/mm3 10/23/18 05:29 WBC Morphology Not Reportable 10/23/18 05:29 Hypersegmented Neuts Not Reportable 10/23/18 05:29 Hyposegmented Neuts Not Reportable 10/23/18 05:29 Hypogranular Neuts Not Reportable 10/23/18 05:29 Smudge Cells Not Reportable 10/23/18 05:29 Toxic Granulation Not Reportable 10/23/18 05:29 Toxic Vacuolation Not Reportable 10/23/18 05:29 Dohle Bodies Not Reportable 10/23/18 05:29 Pelger-Huet Anomaly Not Reportable 10/23/18 05:29 Cece Rods Not Reportable 10/23/18 05:29 Platelet Estimate Consistent w auto 10/23/18 05:29 Clumped Platelets Not Reportable 10/23/18 05:29 Plt Clumps, EDTA Not Reportable 10/23/18 05:29 Large Platelets Not Reportable 10/23/18 05:29 Giant Platelets Not Reportable 10/23/18 05:29 Platelet Satelliting Not Reportable 10/23/18 05:29 Plt Morphology Comment Not Reportable 10/23/18 05:29 RBC Morphology Not Reportable 10/23/18 05:29 Dimorphic RBCs Not Reportable 10/23/18 05:29 Polychromasia Not Reportable 10/23/18 05:29 Hypochromasia Few 10/23/18 05:29 Poikilocytosis Not Reportable 10/23/18 05:29 Anisocytosis Not Reportable 10/23/18 05:29 Microcytosis Not Reportable 10/23/18 05:29 Macrocytosis Not Reportable 10/23/18 05:29 Spherocytes Not Reportable 10/23/18 05:29 Pappenheimer Bodies Not Reportable 10/23/18 05:29 Sickle Cells Not Reportable 10/23/18 05:29 Target Cells Few 10/23/18 05:29 Tear Drop Cells Not Reportable 10/23/18 05:29 Ovalocytes Few 10/23/18 05:29 Helmet Cells Not Reportable 10/23/18 05:29 [place] Bodies Not Reportable 10/23/18 05:29 [place] Rings Not Reportable 10/23/18 05:29 Tish Cells Not Reportable 10/23/18 05:29 Bite Cells Not Reportable 10/23/18 05:29 Crenated Cell Not Reportable 10/23/18 05:29 Elliptocytes Not Reportable 10/23/18 05:29 Acanthocytes (Spur) Not Reportable 10/23/18 05:29 Rouleaux Not Reportable 10/23/18 05:29 Hemoglobin C Crystals Not Reportable 10/23/18 05:29 Schistocytes Not Reportable 10/23/18 05:29 Malaria parasites Not Reportable 10/23/18 05:29 Bigg Bodies Not Reportable 10/23/18 05:29 Hem Pathologist Commnt No 10/23/18 05:29 PT 15.5 Sec. (12.2-14.9) H 10/17/18 14:09 INR 1.16 (0.87-1.13) H 10/17/18 14:09 APTT 28.0 Sec. (24.2-36.6) 10/17/18 14:09 Sodium 139 mmol/L (137-145) 10/24/18 06:08 Potassium 4.0 mmol/L (3.6-5.0) 10/24/18 06:08 Chloride 102.9 mmol/L (98-107) 10/24/18 06:08 Carbon Dioxide 26 mmol/L (22-30) 10/24/18 06:08 Anion Gap 14 mmol/L 10/24/18 06:08 BUN 20 mg/dL (7-17) H 10/24/18 06:08 Creatinine 1.8 mg/dL (0.7-1.2) H 10/24/18 06:08 Estimated GFR 29 ml/min 10/24/18 06:08 BUN/Creatinine Ratio 11 % 10/24/18 06:08 Glucose 90 mg/dL (65-100) 10/24/18 06:08 Calcium 8.9 mg/dL (8.4-10.2) 10/24/18 06:08 Phosphorus 3.80 mg/dL (2.5-4.5) 10/24/18 06:08 Magnesium 2.10 mg/dL (1.7-2.3) 10/24/18 06:08 Total Bilirubin 0.20 mg/dL (0.1-1.2) 10/24/18 06:08 AST 16 units/L (5-40) 10/24/18 06:08 ALT < 5 units/L (7-56) L 10/24/18 06:08 Alkaline Phosphatase 53 units/L (35-129) 10/24/18 06:08 Total Creatine Kinase 60 units/L (30-135) 10/18/18 03:19 Troponin T < 0.010 ng/mL (0.00-0.029) 10/17/18 14:09 NT-Pro-B Natriuret Pep 1582 pg/mL (0-900) H 10/17/18 14:09 Serum Total Protein 4.8 g/dL (6.1-8.1) L 10/19/18 05:01 Total Protein 5.3 g/dL (6.3-8.2) L 10/24/18 06:08 Albumin 2.8 g/dL (3.9-5) L 10/24/18 06:08 Albumin/Globulin Ratio 1.1 % 10/24/18 06:08 Nbjzm-4-Tqbkgvofx 0.5 g/dL (0.2-0.3) H 10/19/18 05:01 Otehu-0-Exqjppxjs 0.7 g/dL (0.5-0.9) 10/19/18 05:01 Beta Globulins 0.2 g/dL (0.2-0.5) 10/19/18 05:01 Gamma Globulins 0.6 g/dL (0.8-1.7) L 10/19/18 05:01 Abnorm Protein Band 1 see below 10/19/18 05:01 PEP Interpretation see below H 10/19/18 05:01 Lipase 66 units/L (13-60) H 10/17/18 14:09 TSH 1.450 mlU/mL (0.270-4.200) 10/17/18 14:09 Free T4 0.52 ng/dL (0.76-1.46) L 10/17/18 14:09 PTH Intact 374.5 pg/mL (15-65) H 10/18/18 03: Urine Color Gely (Yellow) 10/17/18 19:30 Urine Turbidity Cloudy (Clear) 10/17/18 19:30 Urine pH 7.0 (5.0-7.0) 10/17/18 19:30 Ur Specific [place] 1.015 (1.003-1.030) 10/17/18 19:30 Urine Protein 100 mg/dl mg/dL (Negative) 10/17/18 19:30 Urine Glucose (UA) Neg mg/dL (Negative) 10/17/18 19:30 Urine Ketones Neg mg/dL (Negative) 10/17/18 19:30 Urine Blood Sm (Negative) 10/17/18 19:30 Urine Nitrite Neg (Negative) 10/17/18 19:30 Urine Bilirubin Neg (Negative) 10/17/18 19:30 Urine Urobilinogen < 2.0 mg/dL (<2.0) 10/17/18 19:30 Ur Leukocyte Esterase Lg (Negative) 10/17/18 19:30 Urine WBC (Auto) > 182.0 /HPF (0.0-6.0) H 10/17/18 19:30 Urine RBC (Auto) 9.0 /HPF (0.0-6.0) 10/17/18 19:30 U Epithel Cells (Auto) 9.0 /HPF (0-13.0) 10/17/18 19:30 Urine Bacteria (Auto) 2+ /HPF (Negative) 10/17/18 19:30 Urine Eosinophils None seen (None Seen) 10/17/18 19:30 Urine Creatinine 137.6 mg/dL (0.1-20.0) H 10/17/18 19:30 Urine Sodium 30 mmol/L 10/17/18 19:30 Plasma/Serum Alcohol < 0.01 % (0-0.07) 10/17/18 14:09 Proteinase 3 (PR3) Ab <1.0 AI (<1.0) 10/19/18 05:01 Myeloperoxidase Ab 7.3 AI (<1.0) H 10/19/18 05:01 Complement C3 140 mg/dL (83-193) 10/19/18 05:01 Complement C4 37 mg/dL (15-57) 10/19/18 05:01 Hepatitis A IgM Ab Non-reactive (NonReactive) 10/17/18 14:09 Hep Bs Antigen Non-reactive (Negative) 10/17/18 14:09 Hep B Core IgM Ab Non-reactive (NonReactive) 10/17/18 14:09 Hepatitis C Antibody Non-reactive (NonReactive) 10/17/18 14:09 Blood Type A POSITIVE 10/17/18 14:09 Antibody Screen Negative 10/17/18 14:09 Active Medications - Current Medications Current Medications: Generic Name Dose Route Start Last Admin Trade Name Freq PRN Reason Stop Dose Admin Al Hydrox/Mg Hydrox/Simethicone 30 ml 10/19/18 16:03 Alum-Mag Hydrox-Simeth 596-848-03op/5ml PO Q4H PRN Indigestion Albuterol 2.5 mg 10/17/18 16:26 Proventil IH Q3HRT PRN Shortness Of Breath Artificial Tears 1 drops 10/18/18 08:00 Isopto Tears 0.5% OU Q6H PRN Dry Eye(s) Atorvastatin Calcium 20 mg 10/17/18 22:00 10/23/18 21:06 Lipitor PO 20 mg QHS CAMRON Administration Bisacodyl 10 mg 10/23/18 08:00 Dulcolax [place] QDAY PRN Constipation Sodium Chloride 100 mls @ 999 mls/hr 10/22/18 13:00 Nacl 0.9% IV RAJI PRN Hypotension Magnesium Hydroxide 30 ml 10/21/18 14:47 10/24/18 12:01 Milk Of Magnesia PO 30 ml Q4H PRN Administration Constipation Morphine Sulfate 2 mg 10/22/18 23:21 10/24/18 03:02 Morphine IV 2 mg Q4H PRN Administration Pain , Severe (7-10) Multivitamins/Minerals 1 each 10/19/18 10:00 10/24/18 09:42 Theragran-M Tab PO 1 each QDAY CAMRON Administration Oxycodone/Acetaminophen 1 tab 10/18/18 16:54 10/24/18 09:41 Percocet 5/325 PO 1 tab Q6H PRN Administration Pain, Moderate (4-6) Pantoprazole Sodium 40 mg 10/19/18 10:00 10/24/18 09:42 Protonix PO 40 mg QDAY CAMRON Administration Quetiapine Fumarate 100 mg 10/18/18 22:00 10/23/18 21:06 Seroquel PO 100 mg QHS CAMRON Administration Quetiapine Fumarate 200 mg 10/18/18 22:00 10/23/18 21:06 Seroquel PO 200 mg QHS CAMRON Administration Sodium Chloride 10 ml 10/17/18 22:00 10/24/18 09:43 Sodium Chloride Flush Syringe 10 Ml IV 10 ml BID CAMRON Administration Sodium Chloride 10 ml 10/17/18 16:26 Sodium Chloride Flush Syringe 10 Ml IV PRN PRN LINE FLUSH Trazodone HCl 50 mg 10/17/18 22:00 10/23/18 21:06 Desyrel PO 50 mg QHS CAMRON Administration Nutrition/Malnutrition Assess - Dietary Evaluation Nutrition/Malnutrition Findings: Nutrition Notes Start: 10/24/18 15:39 Freq: Status: Active Protocol: Document 10/24/18 15:39 RM (Rec: 10/24/18 15:40 RM [id number]) Nutrition Notes Need for Assessment generated from: LOS Initial or Follow up Brief Note Height 5 ft 2 in Weight 242.1 kg [place] Body Weight (kg) 50.00 BMI 97.6 Subjective/Other Information Screened for LOS. PO intake 90% X 5 meals. Nutrition Intervention Revisit per MD consult or patient Sign Off request:
[2018-10-24 21:32] LABS: ANA Screen, IFA Negative (Negative)
[2018-10-24] MEDS: DESYREL PO SCH (21:46)
[2018-10-25 06:58] LABS: Calcium 8.8 mg/dL (8.4-10.2)
--- NOTE | 2018-10-25 06:59 | Progress Note ---
Assessment and Plan 1. Acute kidney injury: Likely vasomotor SULY superimposed on CKD. Unilateral kidney. Creatinine was 1.[address] abdomen was negative for hydronephrosis. Patient was dialyzed once on 10/19/18 due to suspected uremic symptoms. Renal function is better and stable. Monitor renal function. Renal prognosis is guarded. Avoid nephrotoxic agents. Meds dosage based on GFR. Counseled to quit smoking. 2. ANCA positive: Suspected Vasculitis. Patient has only one kidney. Since the renal function is stable will have her see Manager Corporate Responsibility. Patient was advised to see [place] Manager [employer]. 3, FEN: Monitor lytes. 4. GI bleed: Severe erosive Gastritis and Duodenitis. 5. Diastolic CHF. 6. H/o DVT / PE: Monitor. 7. H/o alcohol abuse: Counseled. Subjective Date of service: 10/25/18 Principal diagnosis: GI bleed Interval history: Patient was seen and examined at the bedside. No new complaint. Objective - Vital Signs Vital signs: Vital Signs - 12hr 10/24/18 10/24/18 10/25/18 19:45 22:16 05:18 Temperature 98.7 F 98.0 F Pulse Rate 86 86 Respiratory 16 16 Rate Blood Pressure 117/69 90/59 O2 Sat by Pulse 94 99 96 Oximetry - General Appearance General appearance: well-developed, well-nourished, appears stated age, obese, other (not in distress) EENT: ATNC, PERRL, mucous membranes moist, hearing intact, vision intact Neck: supple Respiratory: Present: Clear to Ascultation Cardiology: regular, S1S2, no murmurs Gastrointestinal: normoactive bowel sounds, no tenderness, no distended Integumentary: warm and dry Neurologic: no focal deficit, no asterixis, alert and oriented x3 Musculoskeletal: other (1 to 2+ edema of both LEs noted) Psychiatric: cooperative - Lab 10/23/18 05:29 10/25/18 05:48 Most recent lab results Calcium 8.8 mg/dL (8.4-10.2) 10/25/18 05:48 Phosphorus 3.80 mg/dL (2.5-4.5) 10/24/18 06:08 Magnesium 2.30 mg/dL (1.7-2.3) 10/25/18 05:48 Urine Creatinine 137.6 mg/dL (0.1-20.0) H 10/17/18 19:30 Urine Sodium 30 mmol/L 10/17/18 19:30 Medications & Allergies - Medications Allergies/Adverse Reactions: Allergies TORRIE INHIBITOR Allergy (Uncoded 03/22/14 15:42) Swelling IVP DYE Allergy (Uncoded 03/22/14 15:42) Itching Home Medications: Home Medications Medication Instructions Recorded Confirmed Last Taken Type Albuterol Sulfate [Ventolin Hfa] 18 gm IH PRN 10/17/18 10/17/18 Unknown History Dextran 70/Hypromellose/Pf 1 - 2 drop OP PRN 10/17/18 10/17/18 Unknown History [Artificial Tears Drops 1%/0.3%] Quetiapine Fumarate [Seroquel] 300 mg PO QHS 10/17/18 10/17/18 Unknown History Rivaroxaban [Xarelto] 20 mg PO QDAY 10/17/18 10/17/18 Unknown History Rosuvastatin Calcium [Crestor] 10 mg PO DAILY 10/17/18 10/17/18 Unknown History amLODIPine [Norvasc] 10 mg PO DAILY 10/17/18 10/17/18 Unknown History traZODone [Desyrel] 50 mg PO QHS 10/17/18 10/17/18 Unknown History Active Medications: Generic Name Dose Route Start Last Admin Trade Name Freq PRN Reason Stop Dose Admin Al Hydrox/Mg Hydrox/Simethicone 30 ml 10/19/18 16:03 Alum-Mag Hydrox-Simeth 180-582-69zs/5ml PO Q4H PRN Indigestion Albuterol 2.5 mg 10/17/18 16:26 Proventil IH Q3HRT PRN Shortness Of Breath Artificial Tears 1 drops 10/18/18 08:00 Isopto Tears 0.5% OU Q6H PRN Dry Eye(s) Atorvastatin Calcium 20 mg 10/17/18 22:00 10/24/18 21:46 Lipitor PO 20 mg QHS CAMRON Administration Bisacodyl 10 mg 10/23/18 08:00 Dulcolax [place] QDAY PRN Constipation Sodium Chloride 100 mls @ 999 mls/hr 10/22/18 13:00 Nacl 0.9% IV RAJI PRN Hypotension Magnesium Hydroxide 30 ml 10/21/18 14:47 10/24/18 12:01 Milk Of Magnesia PO 30 ml Q4H PRN Administration Constipation Morphine Sulfate 2 mg 10/22/18 23:21 10/24/18 03:02 Morphine IV 2 mg Q4H PRN Administration Pain , Severe (7-10) Multivitamins/Minerals 1 each 10/19/18 10:00 10/24/18 09:42 Theragran-M Tab PO 1 each QDAY CAMRON Administration Oxycodone/Acetaminophen 1 tab 10/18/18 16:54 10/24/18 09:41 Percocet 5/325 PO 1 tab Q6H PRN Administration Pain, Moderate (4-6) Pantoprazole Sodium 40 mg 10/19/18 10:00 10/24/18 09:42 Protonix PO 40 mg QDAY [place] Administration Quetiapine Fumarate 100 mg 10/18/18 22:00 10/24/18 21:46 Seroquel PO 100 mg QHS CAMRON Administration Quetiapine Fumarate 200 mg 10/18/18 22:00 10/24/18 21:46 Seroquel PO 200 mg QHS CAMRON Administration Sodium Chloride 10 ml 10/17/18 22:00 10/24/18 21:47 Sodium Chloride Flush Syringe 10 Ml IV 10 ml BID CAMRON Administration Sodium Chloride 10 ml 10/17/18 16:26 Sodium Chloride Flush Syringe 10 Ml IV PRN PRN LINE FLUSH Trazodone HCl 50 mg 10/17/18 22:00 10/24/18 21:46 Desyrel PO 50 mg QHS CAMRON Administration
[2018-10-25] MEDS: SODIUM CHLORIDE FLUSH SYRINGE 10 ML IV SCH ×2 (09:44→21:59)
[2018-10-25] MEDS: THERAGRAN-M Tab PO SCH (09:44)
[2018-10-25] MEDS: PROTONIX PO SCH (09:45)
--- NOTE | 2018-10-25 17:24 | Progress Note ---
Assessment and Plan Assessment and plan: -Acute renal failure; tubular necrosis Nephrology Initiated hemodialysis, HD per schedule Renal function gradually improving, monitor off dialysis Dialysis catheter discontinued --Acute respiratory failure; requiring high flow oxygen --Rectal bleeding; resolved s/p EGD;No blood/clots active Severe erosive antral gastritis and duodenitis, with friability Cold bx of antrum, Likely source of anemia No varices,Avoid NSAIDs, Protonix, follow-up GI upon discharge --Possible UTI : received 5 days emperic antibiotic rocephen. symptoms resolved , dc antibiotic --Constipation; stool softeners, resolved --Dyspepsia;;Maalox as needed, --Acute diastolic congestive heart failure; EF 50-55% Impaired relaxation of left ventricle Continue current management --Hypomagnesemia; corrected --Hyponatremia; improved --H/O PE and DVT on Xeralto --Moderate hypoalbuminemia/malnutrition Nutrition supplements and supportive care --Obesity; advised weight reduction as tolerated when medically stable --DVT prophylaxis; SCD No pharmacologic anticoagulation in view of GI bleeding Consults and recommendations noted Physical therapy as tolerated Possible discharge in 1-2 days if stable with home health Plan of care is reviewed with the patient and her nurse Hospitalist Physical - Constitutional Vitals: Temp Pulse Resp BP Pulse Ox 98.0 F 90 16 90/59 88 10/25/18 05:18 10/25/18 08:41 10/25/18 05:18 10/25/18 05:18 10/25/18 07:56 General appearance: Present: no acute distress, well-nourished, obese (morbidly obese) Results - Labs CBC & Chem 7: 10/23/18 05:29 10/25/18 05:48 Labs: Laboratory Last Values WBC 3.8 K/mm3 (4.5-11.0) L 10/23/18 05:29 RBC 2.85 M/mm3 (3.65-5.03) L 10/23/18 05:29 Hgb 10.1 gm/dl (10.1-14.3) 10/23/18 05:29 Hct 30.1 % (30.3-42.9) L 10/23/18 05:29 MCV 106 fl (79-97) H 10/23/18 05:29 MCH 35 pg (28-32) H 10/23/18 05:29 MCHC 33 % (30-34) 10/23/18 05:29 RDW 25.0 % (13.2-15.2) H 10/23/18 05:29 Plt Count 110 K/mm3 (140-440) L 10/23/18 05:29 S[place]ent % (Auto) Planning Director 10/23/18 05:29 Add Manual Diff Complete 10/23/18 05:29 Total Counted 100 10/23/18 05:29 Seg Neuts % (Manual) 59.0 % (40.0-70.0) 10/23/18 05:29 Band Neutrophils % 0 % 10/23/18 05:29 Lymphocytes % (Manual) 29.0 % (13.4-35.0) 10/23/18 05:29 Reactive Lymphs % (Man) 1.0 % 10/23/18 05:29 Monocytes % (Manual) 11.0 % (0.0-7.3) H 10/23/18 05:29 Eosinophils % (Manual) 0 % (0.0-4.3) 10/23/18 05:29 Basophils % (Manual) 0 % (0.0-1.8) 10/23/18 05:29 Metamyelocytes % 0 % 10/23/18 05:29 Myelocytes % 0 % 10/23/18 05:29 Promyelocytes % 0 % 10/23/18 05:29 Blast Cells % 0 % 10/23/18 05:29 Nucleated RBC % Not Reportable 10/23/18 05:29 Seg Neutrophils # Man 2.2 K/mm3 (1.8-7.7) 10/23/18 05:29 Band Neutrophils # 0.0 K/mm3 10/23/18 05:29 Lymphocytes # (Manual) 1.1 K/mm3 (1.2-5.4) L 10/23/18 05:29 Abs React Lymphs (Man) 0.0 K/mm3 10/23/18 05:29 Monocytes # (Manual) 0.4 K/mm3 (0.0-0.8) 10/23/18 05:29 Eosinophils # (Manual) 0.0 K/mm3 (0.0-0.4) 10/23/18 05:29 Basophils # (Manual) 0.0 K/mm3 (0.0-0.1) 10/23/18 05:29 Metamyelocytes # 0.0 K/mm3 10/23/18 05:29 Myelocytes # 0.0 K/mm3 10/23/18 05:29 Promyelocytes # 0.0 K/mm3 10/23/18 05:29 Blast Cells # 0.0 K/mm3 10/23/18 05:29 WBC Morphology Not Reportable 10/23/18 05:29 Hypersegmented Neuts Not Reportable 10/23/18 05:29 Hyposegmented Neuts Not Reportable 10/23/18 05:29 Hypogranular Neuts Not Reportable 10/23/18 05:29 Smudge Cells Not Reportable 10/23/18 05:29 Toxic Granulation Not Reportable 10/23/18 05:29 Toxic Vacuolation Not Reportable 10/23/18 05:29 Dohle Bodies Not Reportable 10/23/18 05:29 Pelger-Huet Anomaly Not Reportable 10/23/18 05:29 Cece Rods Not Reportable 10/23/18 05:29 Platelet Estimate Consistent w auto 10/23/18 05:29 Clumped Platelets Not Reportable 10/23/18 05:29 Plt Clumps, EDTA Not Reportable 10/23/18 05:29 Large Platelets Not Reportable 10/23/18 05:29 Giant Platelets Not Reportable 10/23/18 05:29 Platelet Satelliting Not Reportable 10/23/18 05:29 Plt Morphology Comment Not Reportable 10/23/18 05:29 RBC Morphology Not Reportable 10/23/18 05:29 Dimorphic RBCs Not Reportable 10/23/18 05:29 Polychromasia Not Reportable 10/23/18 05:29 Hypochromasia Few 10/23/18 05:29 Poikilocytosis Not Reportable 10/23/18 05:29 Anisocytosis Not Reportable 10/23/18 05:29 Microcytosis Not Reportable 10/23/18 05:29 Macrocytosis Not Reportable 10/23/18 05:29 Spherocytes Not Reportable 10/23/18 05:29 Pappenheimer Bodies Not Reportable 10/23/18 05:29 Sickle Cells Not Reportable 10/23/18 05:29 Target Cells Few 10/23/18 05:29 Tear Drop Cells Not Reportable 10/23/18 05:29 Ovalocytes Few 10/23/18 05:29 Helmet Cells Not Reportable 10/23/18 05:29 [place] Bodies Not Reportable 10/23/18 05:29 [place] Rings Not Reportable 10/23/18 05:29 [place] Cells Not Reportable 10/23/18 05:29 Bite Cells Not Reportable 10/23/18 05:29 Crenated Cell Not Reportable 10/23/18 05:29 Elliptocytes Not Reportable 10/23/18 05:29 Acanthocytes (Spur) Not Reportable 10/23/18 05:29 Rouleaux Not Reportable 10/23/18 05:29 Hemoglobin C Crystals Not Reportable 10/23/18 05:29 Schistocytes Not Reportable 10/23/18 05:29 Malaria parasites Not Reportable 10/23/18 05:29 Bigg Bodies Not Reportable 10/23/18 05:29 Hem Pathologist Commnt No 10/23/18 05:29 PT 15.5 Sec. (12.2-14.9) H 10/17/18 14:09 INR 1.16 (0.87-1.13) H 10/17/18 14:09 APTT 28.0 Sec. (24.2-36.6) 10/17/18 14:09 Sodium 140 mmol/L (137-145) 10/25/18 05:48 Potassium 4.4 mmol/L (3.6-5.0) 10/25/18 05:48 Chloride 103.2 mmol/L (98-107) 10/25/18 05:48 Carbon Dioxide 26 mmol/L (22-30) 10/25/18 05:48 Anion Gap 15 mmol/L 10/25/18 05:48 BUN 23 mg/dL (7-17) H 10/25/18 05:48 Creatinine 1.7 mg/dL (0.7-1.2) H 10/25/18 05:48 Estimated GFR 31 ml/min 10/25/18 05:48 BUN/Creatinine Ratio 14 % 10/25/18 05:48 Glucose 96 mg/dL (65-100) 10/25/18 05:48 Calcium 8.8 mg/dL (8.4-10.2) 10/25/18 05:48 Phosphorus 3.80 mg/dL (2.5-4.5) 10/24/18 06:08 Magnesium 2.30 mg/dL (1.7-2.3) 10/25/18 05:48 Total Bilirubin 0.20 mg/dL (0.1-1.2) 10/24/18 06:08 AST 16 units/L (5-40) 10/24/18 06:08 ALT < 5 units/L (7-56) L 10/24/18 06:08 Alkaline Phosphatase 53 units/L (35-129) 10/24/18 06:08 Total Creatine Kinase 60 units/L (30-135) 10/18/18 03:19 Troponin T < 0.010 ng/mL (0.00-0.029) 10/17/18 14:09 NT-Pro-B Natriuret Pep 1582 pg/mL (0-900) H 10/17/18 14:09 Serum Total Protein 4.8 g/dL (6.1-8.1) L 10/19/18 05:01 Total Protein 5.3 g/dL (6.3-8.2) L 10/24/18 06:08 Albumin 2.8 g/dL (3.9-5) L 10/24/18 06:08 Albumin/Globulin Ratio 1.1 % 10/24/18 06:08 Jxhfz-2-Xkaytwljg 0.5 g/dL (0.2-0.3) H 10/19/18 05:01 Xxrai-0-Tgpbvrpmo 0.7 g/dL (0.5-0.9) 10/19/18 05:01 Beta Globulins 0.2 g/dL (0.2-0.5) 10/19/18 05:01 Gamma Globulins 0.6 g/dL (0.8-1.7) L 10/19/18 05:01 Abnorm Protein Band 1 see below 10/19/18 05:01 PEP Interpretation see below H 10/19/18 05:01 Lipase 66 units/L (13-60) H 10/17/18 14:09 TSH 1.450 mlU/mL (0.270-4.200) 10/17/18 14:09 Free T4 0.52 ng/dL (0.76-1.46) L 10/17/18 14:09 PTH Intact 374.5 pg/mL (15-65) H 10/18/18 03: Urine Color G[place] (Yellow) 10/17/18 19:30 Urine Turbidity Cloudy (Clear) 10/17/18 19:30 Urine pH 7.0 (5.0-7.0) 10/17/18 19:30 Ur Specific [place] 1.015 (1.003-1.030) 10/17/18 19:30 Urine Protein 100 mg/dl mg/dL (Negative) 10/17/18 19:30 Urine Glucose (UA) Neg mg/dL (Negative) 10/17/18 19:30 Urine Ketones Neg mg/dL (Negative) 10/17/18 19:30 Urine Blood Sm (Negative) 10/17/18 19: Urine Nitrite Neg (Negative) 10/17/18 19:30 Urine Bilirubin Neg (Negative) 10/17/18 19:30 Urine Urobilinogen < 2.0 mg/dL (<2.0) 10/17/18 19:30 Ur Leukocyte Esterase Lg (Negative) 10/17/18 19:30 Urine WBC (Auto) > 182.0 /HPF (0.0-6.0) H 10/17/18 19:30 Urine RBC (Auto) 9.0 /HPF (0.0-6.0) 10/17/18 19:30 U Epithel Cells (Auto) 9.0 /HPF (0-13.0) 10/17/18 19:30 Urine Bacteria (Auto) 2+ /HPF (Negative) 10/17/18 19:30 Urine Eosinophils None seen (None Seen) 10/17/18 19:30 Urine Creatinine 137.6 mg/dL (0.1-20.0) H 10/17/18 19:30 Urine Sodium 30 mmol/L 10/17/18 19:30 Plasma/Serum Alcohol < 0.01 % (0-0.07) 10/17/18 14:09 MATTHEW Screen Negative (Negative) 10/19/18 05:01 Proteinase 3 (PR3) Ab <1.0 AI (<1.0) 10/19/18 05:01 Myeloperoxidase Ab 7.3 AI (<1.0) H 10/19/18 05:01 Complement C3 140 mg/dL (83-193) 10/19/18 05:01 Complement C4 37 mg/dL (15-57) 10/19/18 05:01 Hepatitis A IgM Ab Non-reactive (NonReactive) 10/17/18 14:09 Hep Bs Antigen Non-reactive (Negative) 10/17/18 14:09 Hep B Core IgM Ab Non-reactive (NonReactive) 10/17/18 14:09 Hepatitis C Antibody Non-reactive (NonReactive) 10/17/18 14:09 Blood Type A POSITIVE 10/17/18 14:09 Antibody Screen Negative 10/17/18 14:09 Active Medications - Current Medications Current Medications: Generic Name Dose Route Start Last Admin Trade Name Freq PRN Reason Stop Dose Admin Al Hydrox/Mg Hydrox/Simethicone 30 ml 10/19/18 16:03 Alum-Mag Hydrox-Simeth 546-484-50tw/5ml PO Q4H PRN Indigestion Albuterol 2.5 mg 10/17/18 16:26 Proventil IH Q3HRT PRN Shortness Of Breath Artificial Tears 1 drops 10/18/18 08:00 Isopto Tears 0.5% OU Q6H PRN Dry Eye(s) Atorvastatin Calcium 20 mg 10/17/18 22:00 10/24/18 21:46 Lipitor PO 20 mg QHS CAMRON Administration Bisacodyl 10 mg 10/23/18 08:00 Dulcolax [place] QDAY PRN Constipation Sodium Chloride 100 mls @ 999 mls/hr 10/22/18 13:00 Nacl 0.9% IV RAJI PRN Hypotension Magnesium Hydroxide 30 ml 10/21/18 14:47 10/24/18 12:01 Milk Of Magnesia PO 30 ml Q4H PRN Administration Constipation Morphine Sulfate 2 mg 10/22/18 23:21 10/24/18 03:02 Morphine IV 2 mg Q4H PRN Administration Pain , Severe (7-10) Multivitamins/Minerals 1 each 10/19/18 10:00 10/25/18 09:44 Theragran-M Tab PO 1 each QDAY CAMRON Administration Oxycodone/Acetaminophen 1 tab 10/18/18 16:54 10/24/18 09:41 Percocet 5/325 PO 1 tab Q6H PRN Administration Pain, Moderate (4-6) Pantoprazole Sodium 40 mg 10/19/18 10:00 10/25/18 09:45 Protonix PO 40 mg QDAY CAMRON Administration Quetiapine Fumarate 100 mg 10/18/18 22:00 10/24/18 21:46 Seroquel PO 100 mg QHS CAMRON Administration Quetiapine Fumarate 200 mg 10/18/18 22:00 10/24/18 21:46 Seroquel PO 200 mg QHS CAMRON Administration Sodium Chloride 10 ml 10/17/18 22:00 10/25/18 09:44 Sodium Chloride Flush Syringe 10 Ml IV 10 ml BID CAMRON Administration Sodium Chloride 10 ml 10/17/18 16:26 Sodium Chloride Flush Syringe 10 Ml IV PRN PRN LINE FLUSH Trazodone HCl 50 mg 10/17/18 22:00 10/24/18 21:46 Desyrel PO 50 mg QHS CAMRON Administration Nutrition/Malnutrition Assess - Dietary Evaluation Nutrition/Malnutrition Findings: Nutrition Notes Start: 10/24/18 15:39 Freq: Status: Active Protocol: Document 10/24/18 15:39 RM (Rec: 10/24/18 15:40 RM [id number]) Nutrition Notes Need for Assessment generated from: LOS Initial or Follow up Brief Note Height 5 ft 2 in Weight 242.1 kg [place] Body Weight (kg) 50.00 BMI 97.6 Subjective/Other Information Screened for LOS. PO intake 90% X 5 meals. Nutrition Intervention Revisit per MD consult or patient Sign Off request:
[2018-10-25] MEDS: DESYREL PO SCH (21:58)
--- NOTE | 2018-10-26 06:59 | Progress Note ---
Assessment and Plan 1. Acute kidney injury: Likely vasomotor SULY superimposed on CKD. Unilateral kidney. Creatinine was 1.1 in mar 2018. Patient was dialyzed once on 10/19/18 due to suspected uremic symptoms. Renal function has been improving. Monitor renal function. Avoid nephrotoxic agents. Meds dosage based on GFR. Counseled to quit smoking. 2. ANCA positive: Suspected Vasculitis. Patient has only one kidney. Since the renal function is better / stable will have her see [place] [employer]. 3, FEN: Monitor lytes. 4. GI bleed: Severe erosive Gastritis and Duodenitis. 5. Diastolic CHF. 6. H/o DVT / PE: Monitor. 7. H/o alcohol abuse: Counseled. F/u with me in 1-2 weeks. Subjective Date of service: 10/26/18 Principal diagnosis: GI bleed Interval history: Patient was seen and examined at the bedside. No new complaint. Objective - Vital Signs Vital signs: Vital Signs - 12hr 10/25/18 10/25/18 10/25/18 21:30 21:51 22:00 Temperature 98.4 F Pulse Rate 92 H Respiratory 20 Rate Blood Pressure 113/76 O2 Sat by Pulse 95 96 96 Oximetry 10/26/18 05:36 Temperature 98.1 F Pulse Rate 95 H Respiratory 20 Rate Blood Pressure 120/70 O2 Sat by Pulse 97 Oximetry - General Appearance General appearance: well-developed, well-nourished, appears stated age, obese, other (not in distress) EENT: ATNC, PERRL, hearing intact, vision intact Neck: supple Respiratory: Present: Clear to Ascultation Cardiology: regular, S1S2, no murmurs Gastrointestinal: normoactive bowel sounds, no tenderness, no distended, obese Neurologic: no focal deficit, no asterixis, alert and oriented x3 Musculoskeletal: other (1 to 2+ edema of both LEs noted) Psychiatric: cooperative - Lab 10/23/18 05:29 10/26/18 06:47 Most recent lab results Calcium 8.8 mg/dL (8.4-10.2) 10/25/18 05:48 Phosphorus 3.80 mg/dL (2.5-4.5) 10/24/18 06:08 Magnesium 2.30 mg/dL (1.7-2.3) 10/25/18 05:48 Urine Creatinine 137.6 mg/dL (0.1-20.0) H 10/17/18 19:30 Urine Sodium 30 mmol/L 10/17/18 19:30 Medications & Allergies - Medications Allergies/Adverse Reactions: Allergies TORRIE INHIBITOR Allergy (Uncoded 03/22/14 15:42) Swelling IVP DYE Allergy (Uncoded 03/22/14 15:42) Itching Home Medications: Home Medications Medication Instructions Recorded Confirmed Last Taken Type Albuterol Sulfate [Ventolin Hfa] 18 gm IH PRN 10/17/18 10/17/18 Unknown History Dextran 70/Hypromellose/Pf 1 - 2 drop OP PRN 10/17/18 10/17/18 Unknown History [Artificial Tears Drops 1%/0.3%] Quetiapine Fumarate [Seroquel] 300 mg PO QHS 10/17/18 10/17/18 Unknown History Rosuvastatin Calcium [Crestor] 10 mg PO DAILY 10/17/18 10/17/18 Unknown History amLODIPine [Norvasc] 10 mg PO DAILY 10/17/18 10/17/18 Unknown History traZODone [Desyrel] 50 mg PO QHS 10/17/18 10/17/18 Unknown History Apixaban [Eliquis] 5 mg PO BID #60 tablet 10/26/18 Unknown Rx Furosemide [Lasix TAB] 40 mg PO QDAY #30 tablet 10/26/18 Unknown Rx Potassium Chloride 10 meq PO QDAY #30 capsule.er 10/26/18 Unknown Rx Active Medications: Generic Name Dose Route Start Last Admin Trade Name Freq PRN Reason Stop Dose Admin Al Hydrox/Mg Hydrox/Simethicone 30 ml 10/19/18 16:03 Alum-Mag Hydrox-Simeth 528-088-03hv/5ml PO Q4H PRN Indigestion Albuterol 2.5 mg 10/17/18 16:26 Proventil IH Q3HRT PRN Shortness Of Breath Artificial Tears 1 drops 10/18/18 08:00 Isopto Tears 0.5% OU Q6H PRN Dry Eye(s) Atorvastatin Calcium 20 mg 10/17/18 22:00 10/25/18 21:58 Lipitor PO 20 mg QHS CAMRON Administration Bisacodyl 10 mg 10/23/18 08:00 Dulcolax [place] QDAY PRN Constipation Sodium Chloride 100 mls @ 999 mls/hr 10/22/18 13:00 Nacl 0.9% IV RAJI PRN Hypotension Magnesium Hydroxide 30 ml 10/21/18 14:47 10/24/18 12:01 Milk Of Magnesia PO 30 ml Q4H PRN Administration Constipation Morphine Sulfate 2 mg 10/22/18 23:21 10/24/18 03:02 Morphine IV 2 mg Q4H PRN Administration Pain , Severe (7-10) Multivitamins/Minerals 1 each 10/19/18 10:00 10/25/18 09:44 Theragran-M Tab PO 1 each QDAY CAMRON Administration Oxycodone/Acetaminophen 1 tab 10/18/18 16:54 10/24/18 09:41 Percocet 5/325 PO 1 tab Q6H PRN Administration Pain, Moderate (4-6) Pantoprazole Sodium 40 mg 10/19/18 10:00 10/25/18 09:45 Protonix PO 40 mg QDAY CAMRON Administration Quetiapine Fumarate 100 mg 10/18/18 22:00 10/25/18 21:59 Seroquel PO 100 mg QHS CAMRON Administration Quetiapine Fumarate 200 mg 10/18/18 22:00 10/25/18 21:59 Seroquel PO 200 mg QHS CAMRON Administration Sodium Chloride 10 ml 10/17/18 22:00 10/25/18 21:59 Sodium Chloride Flush Syringe 10 Ml IV 10 ml BID CAMRON Administration Sodium Chloride 10 ml 10/17/18 16:26 Sodium Chloride Flush Syringe 10 Ml IV PRN PRN LINE FLUSH Trazodone HCl 50 mg 10/17/18 22:00 10/25/18 21:58 Desyrel PO 50 mg QHS CAMRON Administration
[2018-10-26 07:31] LABS: Calcium 8.7 mg/dL (8.4-10.2)
[2018-10-26] MEDS: THERAGRAN-M Tab PO SCH (10:24)
[2018-10-26] MEDS: PROTONIX PO SCH (10:25)
[2018-10-26] MEDS: SODIUM CHLORIDE FLUSH SYRINGE 10 ML IV SCH (10:25)
[2018-10-26] MEDS ORDERED: LASIX PO SCH (11:00)
[2018-10-26 12:22] VITALS: BP 117/82
--- NOTE | 2018-10-26 14:35 | Discharge Summary ---
Providers - Providers Date of Admission: 10/17/18 16:27 Date of discharge: 10/26/18 Attending physician: JAUN MARTIN 10/17/18 16:07 Consult to Physician [CONS] Routine Comment: Consulting Provider: RIKA BUSCH Physician Instructions: Reason For Exam: GI bleeding / rectal bleeding on anticoagulation 10/17/18 16:43 Consult to Physician [CONS] Routine Comment: Consulting Provider: REANNA NELSON Physician Instructions: Reason For Exam: Renal Failure 10/18/18 05:45 Consult to Case Management [CONS] Routine Services Needed at Discharge: Other Notified:: copy given to cm Additional Physician Instructions: Please send out for SNF/Rehab placement as per patient request Physical Therapy Evaluation and Treat [CONS] Routine Comment: Reason For Exam: weakness 10/19/18 13:41 Consult to Interventional Radiology [CONS] Routine Consulting Provider: GIBSON HATHAWAY Reason For Exam: Hemodialysis catheter Place consult to:: DR. HATHAWAY Notified:: DR. HATHAWAY Was contact made?: Yes If yes, spoke with:: Primary care physician: [facility]AVEN ACEVES MD Hospitalization Reason for admission: lower GI bleeding Condition: Fair Pertinent studies: X-ray chest and abdomen CT abdomen and pelvis Renal ultrasound Echocardiogram Procedures: EGD Hospital course: This is a 58 year old woman with a history of COPD, chronic kidney disease with previous nephrectomy, PE/DVT on Xarelto for oral anticoagulation was admitted with lower GI bleed, back pain . Patient is evaluated by GI , had EGD , severe erosive gastritis and duodenitis symptomatically managed Symptoms improved , also had urinary tract infection treated with empiric antibiotics, Patient had acute respiratory failure using high flow oxygen which was titrated, Evaluation by cardiology medications were optimized, Today patient is comfortable no new complaints vital signs stable physical exam unremarkable Clear to consultation's for discharge and follow up with him in the office for further evaluation. Patient was evaluated by cardiology and nephrology and GI In consultation and medications optimized. Patient is hemodynamically and clinically stable at discharge Discharge diagnoses: --Acute renal failure; tubular necrosis Nephrology Initiated hemodialysis, HD per schedule Renal function gradually improving, monitor off dialysis Dialysis catheter discontinued --Acute respiratory failure; requiring high flow oxygen --Rectal bleeding; resolved s/p EGD;No blood/clots active Severe erosive antral gastritis and duodenitis, with friability Cold bx of antrum, Likely source of anemia No varices,Avoid NSAIDs, Protonix, follow-up GI upon discharge --Possible UTI : received 5 days emperic antibiotic rocephen. symptoms resolved , dc antibiotic --Constipation; stool softeners, resolved --Dyspepsia;;Maalox as needed, --Acute diastolic congestive heart failure; EF 50-55% Impaired relaxation of left ventricle Continue current management --Hypomagnesemia; corrected --Hyponatremia; improved --H/O PE and DVT on Xeralto --Moderate hypoalbuminemia/malnutrition Nutrition supplements and supportive care --Obesity; advised weight reduction as tolerated when medically stable --DVT prophylaxis; SCD No pharmacologic anticoagulation in view of GI bleeding Stable at discharge Disposition: [id number] HOME UNDER HOME [facility] Time spent for discharge: 33 min Core Measure Documentation - Palliative Care Palliative Care/ Comfort Measures: Not Applicable - Core Measures Any of the following diagnoses?: none Exam - Constitutional Vitals: Temp Pulse Resp BP Pulse Ox 98.4 F 81 22 117/82 95 10/26/18 11:35 10/26/18 11:35 10/26/18 11:35 10/26/18 11:35 10/26/18 11:35 General appearance: Present: no acute distress, well-nourished - EENT Eyes: Present: PERRL, EOM intact - Neck Neck: Present: supple, normal ROM - Respiratory Respiratory effort: normal Respiratory: bilateral: diminished, negative: rales, rhonchi, wheezing - Cardiovascular Rhythm: regular Heart Sounds: Present: S1 & S2 - Extremities Extremities: no ischemia, No edema - Abdominal General gastrointestinal: Present: soft, non-tender, non-distended, normal bowel sounds - Integumentary Integumentary: Present: clear, warm - Musculoskeletal Musculoskeletal: strength equal bilaterally - Psychiatric Psychiatric: appropriate mood/affect, cooperative Plan Activity: advance as tolerated, fall precautions Diet: other (cardiac diet) Special Instructions: smoking cessation, physical therapy Durable Medical Equipment Needed Upon Discharge: Oxygen Additional Instructions: Home Oxygen 2-3 L nasal cannula as needed. Weight reduction when medically stable. If you Have severe shortness of breath or chest pain contact M.D. or go to emergency room Follow up with: PRIMARY CAREMD [Referring] - 3-5 Days REANNA NELSON MD [Staff Physician] - 7 Days RIKA BUSCH MD [Staff Physician] - 7 Days TIFF BUENROSTRO MD [Staff Physician] - 7 Days Forms: Accompanied Note Prescriptions: Apixaban [Eliquis] 5 mg PO BID #60 tablet Furosemide [Lasix TAB] 40 mg PO QDAY #30 tablet Potassium Chloride 10 meq PO QDAY #30 capsule.er
== END 2018-10-26 18:34 | disposition home health service (06) | DRG 286 ==
LOC: ED 13:36 → IMCU 16:27 → 3A 10-20 20:53
PROVIDERS: ADMIT Internal Medicine; ATTEND Internal Medicine
PROC: 0DB78ZX Excision of Stomach, Pylorus, Via Natural or Artificial Opening Endoscopic, Diagnostic (ICD-10-PCS; principal; 2018-10-18)
PROC: 3E0234Z Introduction of Serum, Toxoid and Vaccine into Muscle, Percutaneous Approach (ICD-10-PCS; 2018-10-18)
PROC: B214YZZ Fluoroscopy of Right Heart using Other Contrast (ICD-10-PCS; 2018-10-19)
PROC: 02H633Z Insertion of Infusion Device into Right Atrium, Percutaneous Approach (ICD-10-PCS; 2018-10-19)
PROC: B244ZZZ Ultrasonography of Right Heart (ICD-10-PCS; 2018-10-19)
PROC: 5A1D70Z Performance of Urinary Filtration, Intermittent, Less than 6 Hours Per Day (ICD-10-PCS; 2018-10-19)
PROC: 5A1D70Z Performance of Urinary Filtration, Intermittent, Less than 6 Hours Per Day (ICD-10-PCS; 2018-10-22)
PROC: 02PAX3Z Removal of Infusion Device from Heart, External Approach (ICD-10-PCS; 2018-10-24)
DX: I11.0 Hypertensive heart disease with heart failure (principal); K29.21 Alcoholic gastritis with bleeding; N17.0 Acute kidney failure with tubular necrosis; J96.01 Acute respiratory failure with hypoxia; N18.6 End stage renal disease; E44.0 Moderate protein-calorie malnutrition; E87.2 Acidosis; Z68.45 Body mass index [BMI] 70 or greater, adult; E87.1 Hypo-osmolality and hyponatremia; E66.2 Morbid (severe) obesity with alveolar hypoventilation; N39.0 Urinary tract infection, site not specified; I50.41 Acute combined systolic (congestive) and diastolic (congestive) heart failure; K59.00 Constipation, unspecified; E83.42 Hypomagnesemia; F10.10 Alcohol abuse, uncomplicated; D69.6 Thrombocytopenia, unspecified; J44.9 Chronic obstructive pulmonary disease, unspecified; G89.4 Chronic pain syndrome; F17.200 Nicotine dependence, unspecified, uncomplicated; K29.80 Duodenitis without bleeding; Z86.711 Personal history of pulmonary embolism; Z79.899 Other long term (current) drug therapy; Z90.5 Acquired absence of kidney; Z82.49 Family history of ischemic heart disease and other diseases of the circulatory system; Z98.51 Tubal ligation status; Z91.041 Radiographic dye allergy status; Z23 Encounter for immunization
CPT/HCPCS: 36415; 36558; 74022; 74176; 76775; 77001; 80048; 80053; 80074; 80320; 81001; 82550; 82570; 83690; 83735; 83880; 83970; 84100; 84165; 84300; 84439; 84443; 84484; 85007; 85025; 85610; 85730; 86021; 86038; 86160; 86850; 86900; 86901; 88305; 88342; 89050; 90686; 90732; 93005; 93010; 93306; 94760; 96374; 96375; G0378; A9270-GY; C1750; C1769; G0480; J0690; J0696; J1644; J2250; J2270; J2405; J2704; J3010; J3475; J7030; J7050

== ENCOUNTER 2018-12-14 12:08 | Outpatient (CLI) | payer MEDICARE ==
--- NOTE | 2018-12-14 13:27 | Nuclear Medicine Report ---
Ventilation/perfusion lung scan: Shortness of breath. History of prior PE. Following inhalation of radionuclide there is a normal distribution of activity throughout the left lung. There is decreased activity in the lower half of the right lung which appears to correspond to an elevated right hemidiaphragm on chest x-ray. There is normal washout of activity bilaterally. Perfusion imaging with multiple projections demonstrates inhomogeneity of the activity in the upper lobe on the left predominantly affecting the apex. The perfusion pattern otherwise appears generally homogeneous and unremarkable. Compared to a prior exam in April 2010 there is no change in the perfusion pattern. Impression: Stable examination. Possible scar or chronic thrombotic residua resulting in the abnormal upper left lobe pattern.
--- NOTE | 2018-12-14 13:31 | XRay Report ---
PA and lateral chest: Shortness of breath. There is elevation of the right hemidiaphragm. There are focal areas of atelectatic appearing opacities in the right lower lobe. Left lung is clear. The mediastinal contour is is unremarkable. Compared to prior examination in April 2012 the hemidiaphragm appears slightly more elevated than on the current examination and the right pulmonary opacities are new. No other findings. Impression: Right lower lobe atelectasis. The elevated hemidiaphragm may be related.
== END 2018-12-14 12:09 | disposition home or self-care (01) ==
LOC: NM 12:08
PROVIDERS: ATTEND Internal Medicine
DX: J98.11 Atelectasis (principal); I12.0 Hypertensive chronic kidney disease with stage 5 chronic kidney disease or end stage renal disease; N18.6 End stage renal disease; J44.9 Chronic obstructive pulmonary disease, unspecified; E66.9 Obesity, unspecified; Z86.711 Personal history of pulmonary embolism
CPT/HCPCS: 71046; 78582; A9540; A9558

== ENCOUNTER 2019-02-06 13:17 | Inpatient (IN) | payer MEDICARE ==
--- NOTE | 2019-02-06 13:28 | Emergency Department Report ---
Blank Doc - Documentation Documentation: This is a 58-year-old female that presents with GI bleed symptoms and dizziness. This initial assessment/diagnostic orders/clinical plan/treatment(s) is/are subject to change based on patient's health status, clinical progression and re- assessment by fellow clinical providers in the ED. Further treatment and workup at subsequent clinical providers discretion. Patient/guardians urged not to elope from the ED as their condition may be serious if not clinically assessed and managed. Initial orders include: 1- Patient sent to MAIN ED for further evaluation and treatment 2- labs 3- EKG 4- UA
[2019-02-06 14:27] LABS: Basophils % (Auto) 0.7 % (0.0-1.8); Hematocrit 42.6 % (30.3-42.9); Hemoglobin 14.2 gm/dl (10.1-14.3); Lymphocytes # (Auto) 1.3 K/mm3 (1.2-5.4); Lymphocytes % (Auto) 24.1 % (13.4-35.0); Mean Corpuscular HGB Conc 33 % (30-34); Mean Corpuscular Volume 92 fl (79-97); Monocytes # (Auto) 0.6 K/mm3 (0.0-0.8); Platelet Count 158 K/mm3 (140-440); Red Blood Count 4.61 M/mm3 (3.65-5.03)
--- NOTE | 2019-02-06 14:29 | Emergency Department Report ---
ED GI Bleed HPI - General Chief complaint: GI Bleed Stated complaint: DIZZY/RECTAL BLEEDING Time Seen by Provider: 02/06/19 13:26 Source: patient Mode of arrival: Ambulatory Limitations: No Limitations - History of Present Illness Initial comments: 58-year-old female with history of COPD, DVT currently on Eliquis, presents to ED with complaint of diarrhea and rectal bleeding 3 days. Patient states she is having bright red blood mixed in with loose stools. Reports abdominal bloating. Denies nausea or vomiting. Patient states she was admitted 4 months ago for rectal bleeding also. Patient states her blood pressure has been low since being discharged from the hospital in September. Patient states she regularly takes her blood pressure at home, says the highest systolic BP 103, but it usually runs in the 80s or 90s. Pt also reports that she took her amlodipine 2 days ago and her water pill today b/c her BP was actually high. Patient reports she has an appointment today with Reny Kay MD complaint: gross hematochezia -: days(s) (3) Quality: painless Consistency: constant Improves with: none Worsens with: bowel movement Context: history of GI bleed, blood thinners Associated Symptoms: denies: abdominal pain, nausea, vomiting - Related Data Home Medications Medication Instructions Recorded Confirmed Last Taken Rosuvastatin Calcium [Crestor] 10 mg PO DAILY 10/17/18 02/06/19 Unknown amLODIPine [Norvasc] 10 mg PO DAILY 10/17/18 02/06/19 Unknown traZODone [Desyrel] 50 mg PO QHS 10/17/18 02/06/19 Unknown Baclofen [Lioresal] 10 mg PO TID 02/06/19 02/06/19 Unknown Diclofenac 1% [Diclofenac 1% 4 gm TP BID 02/06/19 02/06/19 Unknown topical gel] Pantoprazole [Protonix] 40 mg PO QDAY 02/06/19 02/06/19 Unknown QUEtiapine [SEROquel] 300 mg PO HS 02/06/19 02/06/19 Unknown Previous Rx's Medication Instructions Recorded Last Taken Type Apixaban [Eliquis] 5 mg PO BID #60 tablet 10/26/18 Unknown Rx Furosemide [Lasix TAB] 40 mg PO QDAY #30 tablet 10/26/18 Unknown Rx Potassium Chloride 10 meq PO QDAY #30 capsule.er 10/26/18 Unknown Rx Allergies Allergy/AdvReac Type Severity Reaction Status Date / Time TORRIE INHIBITOR Allergy Swelling Uncoded 03/22/14 15:42 IVP DYE Allergy Itching Uncoded 03/22/14 15:42 ED Review of Systems ROS: Stated complaint: DIZZY/RECTAL BLEEDING Other details as noted in HPI Comment: All other systems reviewed and negative Constitutional: denies: chills, fever Gastrointestinal: diarrhea, hematochezia. denies: abdominal pain, nausea, vomiting Musculoskeletal: back pain (chronic) Neurological: other (reports dizziness) ED Past Medical Hx - Past Medical History Previous Medical History?: Yes Hx Hypertension: Yes (takes clonidine) Hx Congestive Heart Failure: No Hx Diabetes: No Hx Deep Vein Thrombosis: Yes Hx Pulmonary Embolism: Yes Hx Asthma: No Hx COPD: Yes - Surgical History Past Surgical History?: Yes Additional Surgical History: Tonsilectomy, Nephrectomy - Social History Smoking Status: Current Every Day Smoker Substance Use Type: None - Medications Home Medications: Home Medications Medication Instructions Recorded Confirmed Last Taken Type Rosuvastatin Calcium [Crestor] 10 mg PO DAILY 10/17/18 02/06/19 Unknown History amLODIPine [Norvasc] 10 mg PO DAILY 10/17/18 02/06/19 Unknown History traZODone [Desyrel] 50 mg PO QHS 10/17/18 02/06/19 Unknown History Apixaban [Eliquis] 5 mg PO BID #60 tablet 10/26/18 02/06/19 Unknown Rx Furosemide [Lasix TAB] 40 mg PO QDAY #30 tablet 10/26/18 02/06/19 Unknown Rx Potassium Chloride 10 meq PO QDAY #30 capsule.er 10/26/18 02/06/19 Unknown Rx Baclofen [Lioresal] 10 mg PO TID 02/06/19 02/06/19 Unknown History Diclofenac 1% [Diclofenac 1% 4 gm TP BID 02/06/19 02/06/19 Unknown History topical gel] Pantoprazole [Protonix] 40 mg PO QDAY 02/06/19 02/06/19 Unknown History QUEtiapine [SEROquel] 300 mg PO HS 02/06/19 02/06/19 Unknown History ED Physical Exam - General Limitations: No Limitations General appearance: alert - Head Head exam: Present: atraumatic, normocephalic - Eye Eye exam: Present: normal appearance, PERRL, EOMI - ENT ENT exam: Present: mucous membranes moist - Neck Neck exam: Present: normal inspection - Respiratory Respiratory exam: Present: normal lung sounds bilaterally. Absent: respiratory distress - Cardiovascular Cardiovascular Exam: Present: normal rhythm, tachycardia - GI/Abdominal GI/Abdominal exam: Present: soft. Absent: distended, tenderness - Rectal Rectal exam: Present: heme (+) stool, other (brown stool w/ bright red blood present) - Extremities Exam Extremities exam: Present: normal inspection - Neurological Exam Neurological exam: Present: alert, oriented X3 - Psychiatric Psychiatric exam: Present: normal affect, normal mood - Skin Skin exam: Present: warm, dry, intact, normal color ED Course Vital Signs 02/06/19 02/06/19 02/06/19 13:27 14:05 15:20 Temperature 98.3 F 98.8 F Pulse Rate 114 H 104 H 102 H Respiratory 18 35 H 18 Rate Blood Pressure 100/71 Blood Pressure 91/56 102/63 [Left] O2 Sat by Pulse 93 92 94 Oximetry 02/06/19 02/06/19 17:10 18:13 Temperature Pulse Rate 97 H 93 H Respiratory 18 13 Rate Blood Pressure Blood Pressure 104/60 124/76 [Left] O2 Sat by Pulse 94 94 Oximetry - Consultations Consultation #1: 02/06/19 15:43 Spoke w/ GI PLAYER MANAGERAna. Aware of pt. ED Medical Decision Making - Lab Data Result diagrams: 02/06/19 14:07 02/06/19 14:07 - EKG Data -: EKG Interpreted by Ga EKG shows normal: sinus rhythm, axis, intervals, QRS complexes Rate: normal - EKG Data Interpretation: other (anterior T wave inversions) - Medical Decision Making 58 yo F w/ GI bleeding and hypotension. Pt also reports diarrhea. Hypotension may be due to dehydration from diarrhea and also pt's BP meds as Hb 14.5 and pt does dot report significant blood loss. BP improved w/ IV fluids. GI has been contacted and is aware of pt. Will admit to hospitalist for further management. - Differential Diagnosis anemia, AV malformation, effect of blood thinner, enteritis Critical Care Time: Yes Critical care time in (mins) excluding proc time.: 35 Critical care attestation.: If time is entered above; I have spent that time in minutes in the direct care of this critically ill patient, excluding procedure time. Critical Care Time: 35 min ED Disposition Clinical Impression: GI bleed, Hypotension, Hypokalemia, Diarrhea Disposition: OP ADMIT IP TO THIS HOSP Is pt being admited?: Yes Condition: Stable
[2019-02-06 14:30] LABS: Red Cell Distribution Width 22.3 % (13.2-15.2)
[2019-02-06] MEDS ORDERED: NACL 0.9% 1000 ML 1,000 ML IV ONE ×2 (14:32→15:42)
[2019-02-06 14:36] LABS: INR 1.38 (0.87-1.13)
[2019-02-06 14:37] LABS: Partial Thromboplastin Time 28.1 Sec. (24.2-36.6)
[2019-02-06 14:43] LABS: Albumin 3.5 g/dL (3.9-5); Calcium 9.3 mg/dL (8.4-10.2)
[2019-02-06] MEDS ORDERED: K-DUR PO ONE (15:35)
--- NOTE | 2019-02-06 15:41 | History and Physical Report ---
History of Present Illness Chief complaint: Im bleeding History of present illness: 58 YO Female with HTN, MO, Obesity Hypoventilation, Diastolic CHF, DVT/PE S/P IVC Filter Placement on Therapeutic Anticoagulation with Xarelto, COPD, Nicotine Dependence, RCC S/P Nephrectomy, Chronic Pain Syndrome, ETOH Abuse, ETOH Gas tritis presents to ED for evaluation. Pt states that she has experienced abdominal bloating and rectal bleeding over the past 3 days with worsening symptoms over the past 1 day. Pt transported to [facility] via private vehicle. Pt seen and evaluated in ED and found to have symptoms consistent with GI Bleed, Acute Renal Failure, . Pt initiated on supplemental oxygen and supportive care in ED with improvement in symptoms. Pt admitted to IMCU and initiated on GI bleeding protocol. Pt denies fever, chills, CP, Palpitations, NVD, Trauma, Skin rash, prolonged travel/immobility, unilateral leg swelling, calf pain, productive cough,ingestion of food/water from new/different sources. Nephrology consulted in ED, GI consulted in ED. Previous admission on 10/17/18 reviewed. All listed medication reconciled at time of admission. P Past History Past Medical History: DVT, hypertension, pulmonary embolism, renal failure, other (HTN, MO, Obesity Hypoventilation, DVT/PE S/P IVC Filter Placement on Therapeutic Anticoagulation with Xarelto, COPD, Nicotine Dependence, RCC S/P Nephrectomy, Chronic Pain Syndrome, ETOH Abuse, ETOH Gastritis) Past Surgical History: Other (Tubal ligation, IVC Filter, nephrectomy) Social history: , lives with family Family history: diabetes, hypertension Medications and Allergies Allergies Allergy/AdvReac Type Severity Reaction Status Date / Time TORRIE INHIBITOR Allergy Swelling Uncoded 03/22/14 15:42 IVP DYE Allergy Itching Uncoded 03/22/14 15:42 Home Medications Medication Instructions Recorded Confirmed Last Taken Type Rosuvastatin Calcium [Crestor] 10 mg PO DAILY 10/17/18 02/06/19 Unknown History amLODIPine [Norvasc] 10 mg PO DAILY 10/17/18 02/06/19 Unknown History traZODone [Desyrel] 50 mg PO QHS 10/17/18 02/06/19 Unknown History Apixaban [Eliquis] 5 mg PO BID #60 tablet 10/26/18 02/06/19 Unknown Rx Furosemide [Lasix TAB] 40 mg PO QDAY #30 tablet 10/26/18 02/06/19 Unknown Rx Potassium Chloride 10 meq PO QDAY #30 capsule.er 10/26/18 02/06/19 Unknown Rx Baclofen [Lioresal] 10 mg PO TID 02/06/19 02/06/19 Unknown History Diclofenac 1% [Diclofenac 1% 4 gm TP BID 02/06/19 02/06/19 Unknown History topical gel] Pantoprazole [Protonix] 40 mg PO QDAY 02/06/19 02/06/19 Unknown History QUEtiapine [SEROquel] 300 mg PO HS 02/06/19 02/06/19 Unknown History Review of Systems Constitutional: no weight loss, no weight gain, no fever, no chills Ears, nose, mouth and throat: no ear pain, no ear discharge, no tinnitis, no decreased hearing, no nose pain Breasts: no change in shape, no swelling, no mass Cardiovascular: no chest pain, no orthopnea, no palpitations, no rapid/irregular heart beat, no edema Respiratory: no cough, no cough with sputum, no hemoptysis Gastrointestinal: BRBPR, no nausea, no vomiting, no coffee ground emesis, no early satiety, no indigestion Genitourinary Female: no pelvic pain, no flank pain, no menorrhagia, no dysuria, no urinary frequency Rectal: no pain, no incontinence, no bleeding Musculoskeletal: no neck stiffness, no neck pain, no shooting arm pain, no shooting leg pain, no leg numbness/tingling Integumentary: no rash, no pruritis, no redness, no sores, no wounds, no jaundice Neurological: no transient paralysis, no paralysis, no weakness, no parathesias, no numbness Psychiatric: no anxiety, no memory loss, no change in sleep habits, no sleep disturbances, no insomnia, no hypersomnia, no change in appetite, no change in libido Endocrine: no cold intolerance, no heat intolerance, no excessive thirst, no polydipsia, no polyuria Hematologic/Lymphatic: no easy bruising, no easy bleeding, no lymphadenopathy, no lymphedema Allergic/Immunologic: no urticaria, no allergic rhinitis, no wheezing, no persistent infections, no anaphylaxis Exam - Constitutional Vitals: Temp Pulse Resp BP Pulse Ox 98.8 F 102 H 18 102/63 94 02/06/19 14:05 02/06/19 15:20 02/06/19 15:20 02/06/19 15:20 02/06/19 15:20 General appearance: Present: mild distress - EENT Eyes: Present: PERRL ENT: hearing intact, clear oral mucosa - Neck Neck: Present: supple, normal ROM - Respiratory Respiratory effort: normal Respiratory: bilateral: CTA - Cardiovascular Heart Sounds: Present: S1 & S2. Absent: rub, click - Extremities Extremities: pulses symmetrical, No edema Peripheral Pulses: within normal limits - Abdominal General gastrointestinal: Present: soft, non-tender, non-distended, normal bowel sounds Female genitourinary: Present: normal - Integumentary Integumentary: Present: clear, warm, dry - Musculoskeletal Musculoskeletal: gait normal, strength equal bilaterally - Psychiatric Psychiatric: appropriate mood/affect, intact judgment & insight - Neurologic Neurologic: CNII-XII intact, moves all extremities Results - Labs CBC & Chem 7: 02/06/19 14:07 02/06/19 14:07 Labs: Abnormal lab results 02/06/19 02/06/19 02/06/19 Range/Units 14:07 14:07 14:07 RDW 22.3 H (13.2-15.2) % [place] % (Auto) 11.0 H (0.0-7.3) % PT 16.6 H (12.2-14.9) Sec. INR 1.38 H (0.87-1.13) Potassium 3.1 L (3.6-5.0) mmol/L Chloride 95.6 L (98-107) mmol/L BUN 25 H (7-17) mg/dL Creatinine 2.4 H (0.7-1.2) mg/dL Glucose 146 H (65-100) mg/dL Albumin 3.5 L (3.9-5) g/dL Assessment and Plan - Patient Problems (1) GI bleed Current Visit: Yes Status: Acute Qualifiers: GI bleed type/associated pathology: anorectal hemorrhage Qualified Code(s): K62.5 - Hemorrhage of anus and rectum Plan to address problem: Admit to IMCU, GI bleeding protocol, serial cbc, HGB stable at time of admission, no transfusion at this time, PRCB if patient drops hgb greater than 2 grams in 12 hour period. GI consulted in ED.,IV ppi therapy. (2) History of recurrent deep vein thrombosis (DVT) Current Visit: Yes Status: Acute Plan to address problem: Continue therapeutic anticoagulation, (3) ARF (acute renal failure) with tubular necrosis Current Visit: No Status: Acute Plan to address problem: Nephrology consulted in ED, monitor uop q shift, avoid nephrotoxic agents. (4) Alcohol abuse Current Visit: No Status: Acute Plan to address problem: No ingestion of ETOH over the past 6 months. Pt counseled regarding continued abstinence, (5) CHF (congestive heart failure) Current Visit: No Status: Acute Qualifiers: Heart failure type: diastolic Heart failure chronicity: acute Qualified Code(s): I50.31 - Acute diastolic (congestive) heart failure Plan to address problem: Strict I/O, daily weight, blood pressure control, continue prehospital medication, pulse oximetry, supplemental oxygen, afterload reduction, Echo reviewed. (6) DVT prophylaxis Current Visit: No Status: Acute Plan to address problem: SCD to BLE while in bed, continue therapeutic anticoagulation.
[2019-02-06] MEDS ORDERED: SODIUM CHLORIDE FLUSH SYRINGE 10 ML IV PRN (15:49)
[2019-02-06] MEDS ORDERED: NACL 0.9% 1000 ML 1,000 ML ONE (16:48)
[2019-02-06] MEDS ORDERED: TYLENOL PO ONE (16:58)
[2019-02-06] MEDS: PROTONIX 80 MG in NACL 0.9% 100 ML IV SCH (17:00)
[2019-02-06] MEDS ORDERED: TYLENOL ONE (17:05)
--- NOTE | 2019-02-06 19:26 | XRay Report ---
LUMBAR SPINE 3 VIEWS INDICATION: pain COMPARISON: None. FINDINGS: There is superior endplate compression fracture of the L3 vertebral body which is age indeterminate. Is a small fragment which extends anterior from the superior endplate. No retropulsed fragments are i dentified. There is discogenic degenerative change is L3-4, L4-5 and L5-S1. IMPRESSION: There is mild superior endplate compression fracture of L1 Signer Name: Ross Silva MD Signed: 02/06/2019 7:22 PM Workstation Name: [id number]
--- NOTE | 2019-02-06 21:49 | Consultation ---
History of Present Illness - Reason for Consult Consult date: 02/06/19 acute renal failure, chronic renal failure - History of Present Illness The patient is a 58 YO female with history significant for Morbid Obesity, HTN, Obesity Hypoventilation, Diastolic CHF, CKD stage 3, DVT/PE S/P IVC Filter Placement on Xarelto, COPD, Nicotine Dependence, RCC S/P Nephrectomy, Chronic Pain Syndrome and ETOH Gastritis who is followed by our service presented to ED with c/o rectal bleeding over the past 3 days. Pt reports loose stools for the past week, blood in the stool, orthostatic dizziness and multiple falls. On further evaluation her BP was 91/56, creatinine 2.4 with K 3.1. Pt was admitted for treatment of GI Bleed and Acute Renal Failure. Pt denies fever, chills, CP, N, V, Skin rash, cough, syncope, dysuria, hematuria or abd pain. Nephrology was consulted for further evaluation. Past History Past Medical History: DVT, hypertension, hyperlipidemia, pulmonary embolism, renal failure, other (HTN, MO, Obesity Hypoventilation, DVT/PE S/P IVC Filter Placement on Therapeutic Anticoagulation with Xarelto, COPD, Nicotine Dependence, RCC S/P Nephrectomy, Chronic Pain Syndrome, ETOH Abuse, ETOH Gastritis) Past Surgical History: Other (Tubal ligation, IVC Filter, nephrectomy) Social history: , lives with family Family history: diabetes, hypertension Medications and Allergies Allergies Allergy/AdvReac Type Severity Reaction Status Date / Time TORRIE INHIBITOR Allergy Swelling Uncoded 03/22/14 15:42 IVP DYE Allergy Itching Uncoded 03/22/14 15:42 Home Medications Medication Instructions Recorded Confirmed Last Taken Type Rosuvastatin Calcium [Crestor] 10 mg PO DAILY 10/17/18 02/06/19 Unknown History amLODIPine [Norvasc] 10 mg PO DAILY 10/17/18 02/06/19 Unknown History traZODone [Desyrel] 50 mg PO QHS 10/17/18 02/06/19 Unknown History Apixaban [Eliquis] 5 mg PO BID #60 tablet 10/26/18 02/06/19 Unknown Rx Furosemide [Lasix TAB] 40 mg PO QDAY #30 tablet 10/26/18 02/06/19 Unknown Rx Potassium Chloride 10 meq PO QDAY #30 capsule.er 10/26/18 02/06/19 Unknown Rx Baclofen [Lioresal] 10 mg PO TID 02/06/19 02/06/19 Unknown History Diclofenac 1% [Diclofenac 1% 4 gm TP BID 02/06/19 02/06/19 Unknown History topical gel] Pantoprazole [Protonix] 40 mg PO QDAY 02/06/19 02/06/19 Unknown History QUEtiapine [SEROquel] 300 mg PO HS 02/06/19 02/06/19 Unknown History Active Meds: Active Medications Albuterol (Proventil) 2.5 mg IH Q3HRT PRN PRN Reason: Shortness Of Breath Amlodipine Besylate (Norvasc) 10 mg PO DAILY [facility] Apixaban (Eliquis) 5 mg PO BID [facility]; Protocol Atorvastatin Calcium (Lipitor) 20 mg PO QHS [facility] Baclofen (Lioresal) 10 mg PO TID [facility] Diclofenac Sodium (Diclofenac 1%) 0.8 applic TP BID [facility] Pantoprazole Sodium 80 mg/ (Sodium Chloride) 100 mls @ 10 mls/hr IV DIRECT [facility] Last Admin: 02/06/19 17:00 Dose: 8 mg/hr, 10 mls/hr Documented by: Potassium Chloride (K-Dur) 10 meq PO QDAY [facility] Quetiapine Fumarate (Seroquel) 300 mg PO HS [facility] Sodium Chloride (Sodium Chloride Flush Syringe 10 Ml) 10 ml IV BID [facility] Sodium Chloride (Sodium Chloride Flush Syringe 10 Ml) 10 ml IV PRN PRN PRN Reason: LINE FLUSH Trazodone HCl (Desyrel) 50 mg PO QHS [facility] Review of Systems Constitutional: fatigue, no weight loss, no weight gain, no fever, no chills, no anorexia, no weakness, no poor appetite Breasts: deferred Cardiovascular: lightheadedness, high blood pressure, no chest pain, no orthopnea, no edema, no syncope, no shortness of breath, no dyspnea on exertion, no leg edema Respiratory: no cough, no cough with sputum, no hemoptysis, no shortness of breath, no dyspnea on exertion Gastrointestinal: diarrhea, no abdominal pain, no nausea, no vomiting, no hematemesis, no melena, no hematochezia Genitourinary Female: no dysuria, no hematuria Rectal: bleeding Musculoskeletal: frequent falls Integumentary: no rash, no sores, no wounds, no jaundice Neurological: no paralysis, no weakness, no seizures, no syncope, no tremors, no convulsions, no aphasia, no change in speech, no change in mentation, no confusion, no memory loss Psychiatric: depression Exam - Vital Signs Vital signs: Vital Signs Temp Pulse Resp BP Pulse Ox 98.3 F 114 H 18 100/71 93 02/06/19 13:27 02/06/19 13:27 02/06/19 13:27 02/06/19 13:27 02/06/19 13:27 - General Appearance General appearance: well-developed, well-nourished, appears stated age, obese, other (no edema) EENT: ATNC, PERRL, mucous membranes dry, hearing intact, vision intact Neck: Present: neck supple, trachea midline Respiratory: Clear to Ascultation Heart: regular, S1S2, no murmurs Gastrointestinal: Present: normoactive bowel sounds, obese. Absent: tenderness, distended Integumentary: no rash, warm and dry Neurologic: no focal deficit, no asterixis, alert and oriented x3 Musculoskeletal: Present: other (no edema) Psychiatric: cooperative Results - Lab Results 02/06/19 14:07 02/06/19 14:07 Most recent lab results Calcium 9.3 mg/dL (8.4-10.2) 02/06/19 14:07 Assessment and Plan 1. Acute kidney injury: Vasomotor / hemodynamic SULY superimposed on CKD stage 3 in the setting of volume depletion. Unilateral kidney. Urine studies ordered. Continue IV fluids. Monitor renal function. Renal prognosis is guarded. Avoid nephrotoxic agents. Meds dosage based on GFR. 2. FEN: Volume depletion, continue IV fluids. Monitor lytes. 3. Rectal bleeding: Follow H/H. 4. H/o CHF: Appears compensated. 5. H/o DVT: On Eliquis.
[2019-02-06] MEDS: PROVENTIL IH PRN (22:07)
[2019-02-06] MEDS: LIORESAL PO SCH (22:32)
[2019-02-06] MEDS: DESYREL PO SCH (22:32)
[2019-02-06] MEDS: ELIQUIS PO SCH (22:32)
[2019-02-06] MEDS: SODIUM CHLORIDE FLUSH SYRINGE 10 ML IV SCH (22:34)
[2019-02-07] MEDS: HABITROL TD SCH ×2 (00:46→09:01)
[2019-02-07] MEDS: DICLOFENAC 1% TP SCH ×3 (00:46→22:21)
[2019-02-07] MEDS: PROTONIX 80 MG in NACL 0.9% 100 ML IV SCH (01:56)
[2019-02-07 04:21] LABS: Bacteria,Urine 2+ /HPF (Negative); Bilirubin,Urine NEG (Negative); Blood,Urine SM (Negative); Color,Urine Yellow (Yellow); Hyaline Casts,Urine 1 /LPF; Mucus,Urine FEW /HPF; Protein,Urine <15 mg/dL mg/dL (Negative); Urobilinogen,Urine < 2.0 mg/dL (<2.0)
[2019-02-07 04:22] LABS: Creatinine,Urine 56.9 mg/dL (0.1-20.0)
[2019-02-07 05:35] LABS: Basophils % (Auto) 0.6 % (0.0-1.8); Eosinophils % (Auto) 0.1 % (0.0-4.3); Hematocrit 36.4 % (30.3-42.9); Hemoglobin 12.1 gm/dl (10.1-14.3); Lymphocytes # (Auto) 1.8 K/mm3 (1.2-5.4); Lymphocytes % (Auto) 35.6 % (13.4-35.0); Mean Corpuscular HGB Conc 33 % (30-34); Mean Corpuscular Volume 94 fl (79-97); Monocytes # (Auto) 0.5 K/mm3 (0.0-0.8); Monocytes % (Auto) 10.4 % (0.0-7.3); Platelet Count 147 K/mm3 (140-440); Red Blood Count 3.88 M/mm3 (3.65-5.03)
[2019-02-07 05:37] LABS: Red Cell Distribution Width 23.4 % (13.2-15.2)
[2019-02-07 05:55] LABS: Albumin 2.7 g/dL (3.9-5); Calcium 8.3 mg/dL (8.4-10.2)
[2019-02-07] MEDS: LIORESAL PO SCH ×3 (08:57→20:19)
[2019-02-07] MEDS: K-DUR PO SCH (09:00)
[2019-02-07] MEDS: ELIQUIS PO SCH ×2 (09:00→22:21)
[2019-02-07] MEDS: PROTONIX PO SCH (09:00)
[2019-02-07] MEDS: SODIUM CHLORIDE FLUSH SYRINGE 10 ML IV SCH ×2 (09:01→22:22)
[2019-02-07] MEDS ORDERED: NORVASC PO SCH (10:00)
[2019-02-07] MEDS ORDERED: NON-FORMULARY (Rosuvastatin Calcium [Crestor] 10 MG) PO SCH (10:00)
[2019-02-07] MEDS ORDERED: NON-FORMULARY (Potassium Chloride [Potassium Chloride] 10 MEQ) PO SCH (10:00)
[2019-02-07] MEDS ORDERED: PROTONIX PO SCH (10:00)
[2019-02-07] MEDS ORDERED: POTASSIUM CHLORIDE PO NR (10:16)
--- NOTE | 2019-02-07 10:16 | Progress Note ---
Assessment and Plan 1. Acute kidney injury: Vasomotor / hemodynamic SULY superimposed on CKD stage 3 in the setting of volume depletion. Unilateral kidney. Continue IV fluids. Renal function is better. Monitor renal function. Avoid nephrotoxic agents. Meds dosage based on GFR. 2. FEN: Volume depletion, continue IV fluids. Hypokalemia, replete K. Monitor lytes. 3. Rectal bleeding: Follow H/H. 4. H/o CHF: Appears compensated. 5. Suspected Orthostatic hypotension: Stop Amlodipine. Midodrine. 6. H/o DVT: On Eliquis. Subjective Date of service: 02/07/19 Interval history: Patient was seen and examined at the bedside. Feeling better today. Objective - Vital Signs Vital signs: Vital Signs - 12hr 02/06/19 02/07/19 02/07/19 23:00 00:26 01:00 Temperature 98.2 F Pulse Rate Pulse Rate [ 80 81 From Monitor] Respiratory 19 19 Rate Blood Pressure O2 Sat by Pulse 94 94 Oximetry 02/07/19 02/07/19 02/07/19 03:00 04:00 05:00 Temperature 98.4 F Pulse Rate Pulse Rate [ 84 83 From Monitor] Respiratory 19 19 Rate Blood Pressure O2 Sat by Pulse 94 94 Oximetry 02/07/19 02/07/19 02/07/19 08:00 08:15 09:00 Temperature 97.6 F Pulse Rate 88 Pulse Rate [ 80 From Monitor] Respiratory 18 Rate Blood Pressure 127/80 O2 Sat by Pulse 95 Oximetry - General Appearance General appearance: well-developed, well-nourished, appears stated age, obese, other (no distress) EENT: ATNC, PERRL, mucous membranes moist, hearing intact, vision intact Neck: supple Respiratory: Present: Clear to Ascultation Cardiology: regular, S1S2, no murmurs Gastrointestinal: normoactive bowel sounds, no tenderness, no distended, obese Integumentary: no rash, warm and dry Neurologic: no focal deficit, no asterixis, alert and oriented x3 Musculoskeletal: other (no edema) Psychiatric: cooperative - Lab 02/07/19 04:50 02/07/19 04:50 Most recent lab results Calcium 8.3 mg/dL (8.4-10.2) L 02/07/19 04:50 56.9 mg/dL (0.1-20.0) H 02/07/19 04:00 12 mmol/L 02/07/19 04:00 Medications & Allergies - Medications Allergies/Adverse Reactions: Allergies TORRIE INHIBITOR Allergy (Uncoded 03/22/14 15:42) Swelling IVP DYE Allergy (Uncoded 03/22/14 15:42) Itching Home Medications: Home Medications Medication Instructions Recorded Confirmed Last Taken Type Rosuvastatin Calcium [Crestor] 10 mg PO DAILY 10/17/18 02/06/19 Unknown History amLODIPine [Norvasc] 10 mg PO DAILY 10/17/18 02/06/19 Unknown History traZODone [Desyrel] 50 mg PO QHS 10/17/18 02/06/19 Unknown History Apixaban [Eliquis] 5 mg PO BID #60 tablet 10/26/18 02/06/19 Unknown Rx Furosemide [Lasix TAB] 40 mg PO QDAY #30 tablet 10/26/18 02/06/19 Unknown Rx Potassium Chloride 10 meq PO QDAY #30 capsule.er 10/26/18 02/06/19 Unknown Rx Baclofen [Lioresal] 10 mg PO TID 02/06/19 02/06/19 Unknown History Diclofenac 1% [Diclofenac 1% 4 gm TP BID 02/06/19 02/06/19 Unknown History topical gel] Pantoprazole [Protonix] 40 mg PO QDAY 02/06/19 02/06/19 Unknown History QUEtiapine [SEROquel] 300 mg PO HS 02/06/19 02/06/19 Unknown History Active Medications: Generic Name Dose Route Start Last Admin Trade Name Janna PRN Reason Stop Dose Admin Albuterol 2.5 mg 02/06/19 15:49 02/06/19 22:07 Proventil IH 2.5 mg Q3HRT PRN Administration Shortness Of Breath Amlodipine Besylate 10 mg 02/07/19 10:00 02/07/19 09:00 Norvasc PO 10 mg DAILY [facility] Administration Apixaban 5 mg 02/06/19 22:00 02/07/19 09:00 Eliquis PO 5 mg BID [facility] Administration Protocol Atorvastatin Calcium 20 mg 02/06/19 22:00 02/06/19 22:31 Lipitor PO 20 mg QHS [facility] Administration Baclofen 10 mg 02/06/19 20:00 02/07/19 08:57 Lioresal PO 10 mg TID [facility] Administration Diclofenac Sodium 0.8 applic 02/06/19 22:00 02/07/19 09:03 Diclofenac 1% TP Not Given BID [facility] Nicotine 14 mg 02/06/19 23:15 02/07/19 09:01 Habitrol TD 14 mg QDAY [facility] Administration Pantoprazole Sodium 40 mg 02/07/19 10:00 02/07/19 09:00 Protonix PO 40 mg QDAY [facility] Administration Potassium Chloride 10 meq 02/07/19 10:00 02/07/19 09:00 K-Dur PO 10 meq QDAY [facility] Administration Quetiapine Fumarate 300 mg 02/06/19 22:00 02/06/19 22:31 Seroquel PO 300 mg HS [facility] Administration Sodium Chloride 10 ml 02/06/19 22:00 02/07/19 09:01 Sodium Chloride Flush Syringe 10 Ml IV 10 ml BID [facility] Administration Sodium Chloride 10 ml 02/06/19 15:49 Sodium Chloride Flush Syringe 10 Ml IV PRN PRN LINE FLUSH Trazodone HCl 50 mg 02/06/19 22:00 02/06/19 22:32 Desyrel PO 50 mg QHS [facility] Administration
--- NOTE | 2019-02-07 10:55 | Gastroenterology Consultation ---
History of Present Illness - Reason for Consult Consult date: 02/07/19 GI bleed Requesting physician: JHONNY GONZÁLES - History of Present Illness Patient is a 58 y/o female with PMH of COPD, DVT/PE (on Eliquis; s/p IVC filter), HTN, MO, psychiatric disorder NOS, RCC (s/p nephrectomy), chronic pain syndrome, nicotine dependence, ETOH abuse, and PUD (EGD in 2013 showed antral ulcers) who presented to ED with c/o rectal bleeding x 3 days to which GI has been consulted. Patient is previously known to our service and followed by Dr. Celeste. She was previously hospitalized here earlier this year (09/2018) for GI bleeding 2/2 severe erosive hemorrhagic gastritis seen by EGD likely contributed to tobacco, ETOH, and NSAID use. She has had intermittent BRBPR since last year (2017) with undergoing a colonoscopy per her report at [facility] that was unremarkable. This morning patient was resting in bed w/o acute distress. Reports rectal bleeding with bright red blood mixed with stool, in toilet, and on TP for the last couple of days (last episode yesterday) following recent diarrhea which has now resolved with associated prolonged time sitting on the toilet. Admits to some left flank discomfort but no significant abd pain. Denies CP, wt loss, N/V, hematemesis, melena, or constipation. No rectal pain or recent trauma. She was last seen in our clinic on 12/05/18 and had been noncompliant with taking PPI at that time, along with substance (tobacco/alcohol) cessation, however she states since then she has been taking daily protonix as recommended. Still actively drinking alcohol (~1pint/wk) and smoking cigarettes. No NSAID use. No hx of cirrhosis or varices. Past History Past Medical History: other (as per HPI) Past Surgical History: , Other (Tubal ligation, IVC Filter, nephrectomy) Social history: , lives with family, smoking, alcohol abuse Family history: diabetes, hypertension Medications and Allergies Allergies Allergy/AdvReac Type Severity Reaction Status Date / Time [employer] Allergy Swelling Uncoded 03/22/14 15:42 IVP DYE Allergy Itching Uncoded 03/22/14 15:42 Home Medications Medication Instructions Recorded Confirmed Last Taken Type Rosuvastatin Calcium [Crestor] 10 mg PO DAILY 10/17/18 02/06/19 Unknown History amLODIPine [Norvasc] 10 mg PO DAILY 10/17/18 02/06/19 Unknown History traZODone [Desyrel] 50 mg PO QHS 10/17/18 02/06/19 Unknown History Apixaban [Eliquis] 5 mg PO BID #60 tablet 10/26/18 02/06/19 Unknown Rx Furosemide [Lasix TAB] 40 mg PO QDAY #30 tablet 10/26/18 02/06/19 Unknown Rx Potassium Chloride 10 meq PO QDAY #30 capsule.er 10/26/18 02/06/19 Unknown Rx Baclofen [Lioresal] 10 mg PO TID 02/06/19 02/06/19 Unknown History Diclofenac 1% [Diclofenac 1% 4 gm TP BID 02/06/19 02/06/19 Unknown History topical gel] Pantoprazole [Protonix] 40 mg PO QDAY 02/06/19 02/06/19 Unknown History QUEtiapine [SEROquel] 300 mg PO HS 02/06/19 02/06/19 Unknown History Active Meds: Active Medications Albuterol (Proventil) 2.5 mg IH Q3HRT PRN PRN Reason: Shortness Of Breath Last Admin: 02/06/19 22:07 Dose: 2.5 mg Documented by: Amlodipine Besylate (Norvasc) 10 mg PO DAILY [facility] Last Admin: 02/07/19 09:00 Dose: 10 mg Documented by: Apixaban (Eliquis) 5 mg PO BID [facility]; Protocol Last Admin: 02/07/19 09:00 Dose: 5 mg Documented by: Atorvastatin Calcium (Lipitor) 20 mg PO QHS [facility] Last Admin: 02/06/19 22:31 Dose: 20 mg Documented by: Baclofen (Lioresal) 10 mg PO TID [facility] Last Admin: 02/07/19 08:57 Dose: 10 mg Documented by: Diclofenac Sodium (Diclofenac 1%) 0.8 applic TP BID [facility] Last Admin: 02/07/19 09:03 Dose: Not Given Documented by: Midodrine (Proamatine) 10 mg PO TID@0800,1200,1600 [facility] Nicotine (Habitrol) 14 mg TD QDAY [facility] Last Admin: 02/07/19 09:01 Dose: 14 mg Documented by: Pantoprazole Sodium (Protonix) 40 mg PO QDAY [facility] Last Admin: 02/07/19 09:00 Dose: 40 mg Documented by: Potassium Chloride (K-Dur) 10 meq PO QDAY [facility] Last Admin: 02/07/19 09:00 Dose: 10 meq Documented by: Potassium Chloride (Potassium Chloride) 40 meq PO ONCE NR Stop: 02/07/19 19:00 Quetiapine Fumarate (Seroquel) 300 mg PO [facility] Last Admin: 02/06/19 22:31 Dose: 300 mg Documented by: Simethicone (Mylicon) 80 mg PO PC PRN PRN Reason: Gas pain Sodium Chloride (Sodium Chloride Flush Syringe 10 Ml) 10 ml IV BID [facility] Last Admin: 02/07/19 09:01 Dose: 10 ml Documented by: Sodium Chloride (Sodium Chloride Flush Syringe 10 Ml) 10 ml IV PRN PRN PRN Reason: LINE FLUSH Trazodone HCl (Desyrel) 50 mg PO QHS [facility] Last Admin: 02/06/19 22:32 Dose: 50 mg Documented by: medications reviewed/updated as required Review of Systems - Review of Systems All systems: negative Gastrointestinal: BRBPR Exam - Constitutional Vital Signs: Temp Pulse Resp BP Pulse Ox 97.6 F 88 18 127/80 95 02/07/19 08:15 02/07/19 09:00 02/07/19 08:00 02/07/19 09:00 02/07/19 08:00 General appearance: no acute distress - Respiratory Respiratory effort: normal - Cardiovascular Rhythm: regular - Gastrointestinal General gastrointestinal: Present: soft, non-tender, non-distended, normal bowel sounds, other (+obese) - Neurologic Neurological: alert and oriented x3 - Labs CBC & Chem 7: 02/07/19 04:50 02/07/19 04:50 Lab Results: Laboratory Results - last 24 hr 02/06/19 02/06/19 02/06/19 03:45 14:07 14:07 WBC 5.6 RBC 4.61 Hgb 14.2 Hct 42.6 MCV 92 MCH 31 MCHC 33 RDW 22.3 H Plt Count 158 Lymph % (Auto) 24.1 [place] % (Auto) 11.0 H Eos % (Auto) 0.0 Baso % (Auto) 0.7 Lymph # 1.3 [place] # 0.6 Eos # 0.0 Baso # 0.0 Seg Neutrophils % 64.2 Seg Neutrophils # 3.6 PT 16.6 H INR 1.38 H APTT 28.1 Sodium Potassium Chloride Carbon Dioxide Anion Gap BUN Creatinine Estimated GFR BUN/Creatinine Ratio Glucose Calcium Total Bilirubin AST ALT Alkaline Phosphatase Total Protein Albumin Albumin/Globulin Ratio Lipase Urine Color Yellow Urine Turbidity Slightly-cloudy Urine pH 7.0 Ur Specific [place] 1.006 Urine Protein <15 mg/dl Urine Glucose (UA) Neg Urine Ketones Neg Urine Blood Sm Urine Nitrite Neg Urine Bilirubin Neg Urine Urobilinogen < 2.0 Ur Leukocyte Esterase Lg Urine WBC (Auto) 24.0 H Urine RBC (Auto) 2.0 U Epithel Cells (Auto) 3.0 Urine Bacteria (Auto) 2+ Hyaline Casts 1 Urine Mucus Few Urine Creatinine Urine Sodium Blood Type Antibody Screen 02/06/19 02/06/19 02/07/19 14:07 14:30 04:00 WBC RBC Hgb Hct MCV MCH MCHC RDW Plt Count Lymph % (Auto) [place] % (Auto) Eos % (Auto) Baso % (Auto) Lymph # [place] # Eos # Baso # Seg Neutrophils % Seg Neutrophils # PT INR APTT Sodium 137 Potassium 3.1 L Chloride 95.6 L Carbon Dioxide 27 Anion Gap 18 BUN 25 H Creatinine 2.4 H Estimated GFR 21 BUN/Creatinine Ratio 10 Glucose 146 H Calcium 9.3 Total Bilirubin 0.50 AST 20 ALT 21 Alkaline Phosphatase 79 Total Protein 6.5 Albumin 3.5 L Albumin/Globulin Ratio 1.2 Lipase 37 Urine Color Urine Turbidity Urine pH Ur Specific [place] Urine Protein Urine Glucose (UA) Urine Ketones Urine Blood Urine Nitrite Urine Bilirubin Urine Urobilinogen Ur Leukocyte Esterase Urine WBC (Auto) Urine RBC (Auto) U Epithel Cells (Auto) Urine Bacteria (Auto) Hyaline Casts Urine Mucus Urine Creatinine 56.9 H Urine Sodium 12 Blood Type A POSITIVE Antibody Screen Negative 02/07/19 02/07/19 04:50 04:50 WBC 5.1 RBC 3.88 Hgb 12.1 Hct 36.4 D MCV 94 MCH 31 MCHC 33 RDW 23.4 H Plt Count 147 Lymph % (Auto) 35.6 H [place] % (Auto) 10.4 H Eos % (Auto) 0.1 Baso % (Auto) 0.6 Lymph # 1.8 [place] # 0.5 Eos # 0.0 Baso # 0.0 Seg Neutrophils % 53.3 Seg Neutrophils # 2.7 PT INR APTT Sodium 141 Potassium 3.4 L Chloride 105.2 Carbon Dioxide 26 Anion Gap 13 BUN 20 H Creatinine 1.8 H Estimated GFR 29 BUN/Creatinine Ratio 11 Glucose 91 Calcium 8.3 L Total Bilirubin 0.40 AST 14 ALT 15 Alkaline Phosphatase 64 Total Protein 5.0 L D Albumin 2.7 L Albumin/Globulin Ratio 1.2 Lipase Urine Color Urine Turbidity Urine pH Ur Specific [place] Urine Protein Urine Glucose (UA) Urine Ketones Urine Blood Urine Nitrite Urine Bilirubin Urine Urobilinogen Ur Leukocyte Esterase Urine WBC (Auto) Urine RBC (Auto) U Epithel Cells (Auto) Urine Bacteria (Auto) Hyaline Casts Urine Mucus Urine Creatinine Urine Sodium Blood Type Antibody Screen Assessment and Plan 1.GI bleed 2.hematochezia 3.substance abuse (tobacco/ETOH) 4.SULY -plt WNL, INR 1.38 -H/H WNL (12.1/36.4) -continue to monitor H/H and transfuse as needed -patient with hx of PUD in 2013 (EGD showed antral ulcers) and GI bleed earlier this year (09/2018) 2/2 severe erosive hemorrhagic gastritis (tobacco/ETOH/NSAIDs) seen by EGD (no varices noted) who now presents with re ctal bleeding with bright red blood mixed with stool, on TP, and in toilet x 3 days following an episode of diarrhea which required prolonged time sitting on the toilet (diarrhea now resolved). Last episode of bleeding was yesterday with no active signs of bleeding this am. No hematemesis or melena. Patient reports intermittent BRBPR since last year (2017) and underwent a colonoscopy at [facility] that was unremarkable per her report (records unavailable). -currently HD stable- no significant abd pain or N/V -etiology-likely anorectal in origin vs other -will schedule for colonoscopy tomorrow (+/- EGD if negative) for further evaluation -okay for clear liquids today then NPO after MN -hold Eliquis for procedure -continue PPI and supportive care -substance cessation discussed/encouraged with patient -will follow
[2019-02-07] MEDS: PROAMATINE PO SCH ×2 (11:53→18:58)
[2019-02-07] MEDS ORDERED: GOLYTELY PO ONE (12:00)
[2019-02-07] MEDS: PROVENTIL IH PRN (14:15)
--- NOTE | 2019-02-07 15:09 | Progress Note ---
Assessment and Plan Assessment and plan: 58 YO Female with HTN, MO, Obesity Hypoventilation, Diastolic CHF, DVT/PE S/P IVC Filter Placement on Therapeutic Anticoagulation with Xarelto, COPD, Nicotine Dependence, RCC S/P Nephrectomy, Chronic Pain Syndrome, ETOH Abuse, ETOH Gastritis presents to ED for evaluation. Pt states that she has experienced abdominal bloating and rectal bleeding over the past 3 days with worsening symptoms over the past 1 day. Pt transported to [facility] via private vehicle. Pt seen and evaluated in ED and found to have symptoms consistent with GI Bleed, Acute Renal Failure, . Pt initiated on supplemental oxygen and supportive care in ED with improvement in symptoms. Pt admitted to [facility] and initiated on GI bleeding protocol. Pt denies fever, chills, CP, Palpitations, NVD, Trauma, Skin rash, prolonged travel/immobility, unilateral leg swelling, calf pain, productive cough,ingestion of food/water from new/different sources. Nephrology consulted in ED, GI consulted in ED. Previous admission on 10/17/18 reviewed. All listed medication reconciled at time of admission. (1) GI bleed - H&H is stable - GI consulted and considering to do colonoscopy tomorrow - Oncology liquid diet -Continue to monitor H&H Hypotension - We will start on midodrine patient fell and sustained L1 compression fracture - PT consult (2) History of recurrent deep vein thrombosis (DVT) Current Visit: Yes Status: Acute Plan to address problem: Continue therapeutic anticoagulation, (3) ARF (acute renal failure) with tubular necrosis - Resulted (4) Alcohol abuse Current Visit: No Status: Acute Plan to address problem: No ingestion of ETOH over the past 6 months. Pt counseled regarding continued abstinence, (5) CHF (congestive heart failure) Current Visit: No Status: Acute Qualifiers: Heart failure type: diastolic Heart failure chronicity: acute Qualified Code(s): I50.31 - Acute diastolic (congestive) heart failure Plan to address problem: Strict I/O, daily weight, continue prehospital medication, pulse oximetry, supplemental oxygen, afterload reduction, Echo reviewed. (6) DVT prophylaxis Current Visit: No Status: Acute Plan to address problem: SCD to BLE while in bed, continue therapeutic anticoagulation. History Interval history: Patient was seen and evaluated this morning, patient is still complaining dizziness. No bowel movement today. Hospitalist Physical - Physical exam Narrative exam: Not in cardiopulmonary distress. The patient is obese. Vital signs as documented. Head exam is unremarkable. No scleral icterus . Neck is without jugular venous distension, thyromegaly, or carotid bruits. Lungs are clear to auscultation. Cardiac exam reveals regular rate and Rhythm. First and second heart sounds normal. No murmurs, rubs or gallops. Abdominal exam reveals normal bowel sounds, no masses, no organomegaly and no aortic enlargement. Extremities are nonedematous and both femoral and pedal pulses are normal. [employer]: Alert and oriented 3. No focal weakness. - Constitutional Vitals: Temp Pulse Resp BP Pulse Ox 97.8 F 89 20 127/80 95 02/07/19 12:21 02/07/19 12:00 02/07/19 12:00 02/07/19 09:00 02/07/19 12:00 General appearance: Present: mild distress Results - Labs CBC & Chem 7: 02/07/19 04:50 02/07/19 04:50 Labs: Laboratory Last Values WBC 5.1 K/mm3 (4.5-11.0) 02/07/19 04:50 RBC 3.88 M/mm3 (3.65-5.03) 02/07/19 04:50 Hgb 12.1 gm/dl (10.1-14.3) 02/07/19 04:50 Hct 36.4 % (30.3-42.9) D 02/07/19 04:50 MCV 94 fl (79-97) 02/07/19 04:50 MCH 31 pg (28-32) 02/07/19 04:50 MCHC 33 % (30-34) 02/07/19 04:50 RDW 23.4 % (13.2-15.2) H 02/07/19 04:50 Plt Count 147 K/mm3 (140-440) 02/07/19 04:50 Lymph % (Auto) 35.6 % (13.4-35.0) H 02/07/19 04:50 [place] % (Auto) 10.4 % (0.0-7.3) H 02/07/19 04:50 Eos % (Auto) 0.1 % (0.0-4.3) 02/07/19 04:50 Baso % (Auto) 0.6 % (0.0-1.8) 02/07/19 04:50 Lymph # 1.8 K/mm3 (1.2-5.4) 02/07/19 04:50 [place] # 0.5 K/mm3 (0.0-0.8) 02/07/19 04:50 Eos # 0.0 K/mm3 (0.0-0.4) 02/07/19 04:50 Baso # 0.0 K/mm3 (0.0-0.1) 02/07/19 04:50 Seg Neutrophils % 53.3 % (40.0-70.0) 02/07/19 04:50 Seg Neutrophils # 2.7 K/mm3 (1.8-7.7) 02/07/19 04:50 PT 16.6 Sec. (12.2-14.9) H 02/06/19 14:07 INR 1.38 (0.87-1.13) H 02/06/19 14:07 APTT 28.1 Sec. (24.2-36.6) 02/06/19 14:07 Sodium 141 mmol/L (137-145) 02/07/19 04:50 Potassium 3.4 mmol/L (3.6-5.0) L 02/07/19 04:50 Chloride 105.2 mmol/L (98-107) 02/07/19 04:50 Carbon Dioxide 26 mmol/L (22-30) 02/07/19 04:50 13 mmol/L 02/07/19 04:50 BUN 20 mg/dL (7-17) H 02/07/19 04:50 1.8 mg/dL (0.7-1.2) H 02/07/19 04:50 Estimated GFR 29 ml/min 02/07/19 04:50 11 % 02/07/19 04:50 Glucose 91 mg/dL (65-100) 02/07/19 04:50 Calcium 8.3 mg/dL (8.4-10.2) L 02/07/19 04:50 0.40 mg/dL (0.1-1.2) 02/07/19 04:50 AST 14 units/L (5-40) 02/07/19 04:50 ALT 15 units/L (7-56) 02/07/19 04:50 64 units/L (35-129) 02/07/19 04:50 5.0 g/dL (6.3-8.2) L D 02/07/19 04:50 2.7 g/dL (3.9-5) L 02/07/19 04:50 1.2 % 02/07/19 04:50 37 units/L (13-60) 02/06/19 14:07 Yellow (Yellow) 02/06/19 03:45 Slightly-cloudy (Clear) 02/06/19 03:45 7.0 (5.0-7.0) 02/06/19 03:45 Ur Specific [place] 1.006 (1.003-1.030) 02/06/19 03:45 <15 mg/dl mg/dL (Negative) 02/06/19 03:45 Neg mg/dL (Negative) 02/06/19 03:45 Neg mg/dL (Negative) 02/06/19 03:45 Sm (Negative) 02/06/19 03:45 Neg (Negative) 02/06/19 03:45 Neg (Negative) 02/06/19 03:45 < 2.0 mg/dL (<2.0) 02/06/19 03:45 Ur Leukocyte Esterase Lg (Negative) 02/06/19 03:45 24.0 /HPF (0.0-6.0) H 02/06/19 03:45 2.0 /HPF (0.0-6.0) 02/06/19 03:45 U Epithel Cells (Auto) 3.0 /HPF (0-13.0) 02/06/19 03:45 2+ /HPF (Negative) 02/06/19 03:45 Hyaline Casts 1 /LPF 02/06/19 03:45 Few /HPF 02/06/19 03:45 56.9 mg/dL (0.1-20.0) H 02/07/19 04:00 12 mmol/L 02/07/19 04:00 Blood Type A POSITIVE 02/06/19 14:30 Antibody Screen Negative 02/06/19 14:30 Active Medications - Current Medications Current Medications: Generic Name Dose Route Start Last Admin Trade Name Freq PRN Reason Stop Dose Admin Albuterol 2.5 mg 02/06/19 15:49 02/06/19 22:07 Proventil IH 2.5 mg Q3HRT PRN Administration Shortness Of Breath Apixaban 5 mg 02/06/19 22:00 02/07/19 09:00 Eliquis PO 5 mg BID [facility] Administration Protocol Atorvastatin Calcium 20 mg 02/06/19 22:00 02/06/19 22:31 Lipitor PO 20 mg QHS [facility] Administration Baclofen 10 mg 02/06/19 20:00 02/07/19 13:13 Lioresal PO 10 mg TID [facility] Administration Diclofenac Sodium 0.8 applic 02/06/19 22:00 02/07/19 09:03 Diclofenac 1% TP Not Given BID [facility] Midodrine 10 mg 02/07/19 12:00 02/07/19 11:53 Proamatine PO 10 mg TID@0800,1200,1600 [facility] Administration Nicotine 14 mg 02/06/19 23:15 02/07/19 09:01 Habitrol TD 14 mg QDAY [facility] Administration Pantoprazole Sodium 40 mg 02/07/19 10:00 02/07/19 09:00 Protonix PO 40 mg QDAY [facility] Administration Potassium Chloride 10 meq 02/07/19 10:00 02/07/19 09:00 K-Dur PO 10 meq QDAY [facility] Administration Potassium Chloride 40 meq 02/07/19 10:16 02/07/19 11:53 Potassium Chloride PO 02/07/19 19:00 40 meq ONCE NR Administration Quetiapine Fumarate 300 mg 02/06/19 22:00 02/06/19 22:31 Seroquel PO 300 mg HS [facility] Administration Simethicone 80 mg 02/07/19 12:00 Mylicon PO PC PRN Gas pain Sodium Chloride 10 ml 02/06/19 22:00 02/07/19 09:01 Sodium Chloride Flush Syringe 10 Ml IV 10 ml BID [facility] Administration Sodium Chloride 10 ml 02/06/19 15:49 Sodium Chloride Flush Syringe 10 Ml IV PRN PRN LINE FLUSH Trazodone HCl 50 mg 02/06/19 22:00 02/06/19 22:32 Desyrel PO 50 mg QHS [facility] Administration
[2019-02-07] MEDS: DESYREL PO SCH (22:20)
[2019-02-08 05:59] LABS: Calcium 9.1 mg/dL (8.4-10.2)
[2019-02-08 09:04] LABS: Hematocrit 39.5 % (30.3-42.9); Hemoglobin 12.9 gm/dl (10.1-14.3)
--- NOTE | 2019-02-08 09:26 | Progress Note ---
Assessment and Plan 1. Acute kidney injury: Vasomotor / hemodynamic SULY superimposed on CKD stage 3 in the setting of volume depletion. Unilateral kidney. Renal function is better. Monitor renal function. Avoid nephrotoxic agents. Meds dosage based on GFR. 2. FEN: Volume depletion, treated. Hypokalemia, improved. Monitor lytes. 3. Rectal bleeding: Follow H/H. EGD and Colonoscopy today. 4. H/o CHF: Appears compensated. 5. Orthostatic hypotension: Continue Midodrine. 6. H/o DVT: On Eliquis. Subjective Date of service: 02/08/19 Interval history: Patient was seen and examined at the bedside. Objective - Vital Signs Vital signs: Vital Signs - 12hr 02/07/19 02/07/19 02/07/19 21:30 21:40 21:50 Temperature Pulse Rate Pulse Rate [ From Monitor] Respiratory Rate Blood Pressure 136/112 117/69 117/69 Blood Pressure [Left] O2 Sat by Pulse 99 90 99 Oximetry 02/07/19 02/07/19 02/07/19 22:00 22:10 22:20 Temperature Pulse Rate 77 Pulse Rate [ From Monitor] Respiratory 29 H 32 H Rate Blood Pressure 140/114 140/114 140/114 Blood Pressure [Left] O2 Sat by Pulse 99 97 99 Oximetry 02/07/19 02/07/19 02/07/19 22:30 22:40 22:50 Temperature Pulse Rate 77 112 H 81 Pulse Rate [ From Monitor] Respiratory 22 28 H 15 Rate Blood Pressure 140/114 140/114 140/114 Blood Pressure [Left] O2 Sat by Pulse 100 97 100 Oximetry 02/07/19 02/07/19 02/07/19 23:00 23:10 23:20 Temperature Pulse Rate 94 H 86 83 Pulse Rate [ From Monitor] Respiratory 13 13 12 Rate Blood Pressure 101/26 101/26 101/26 Blood Pressure [Left] O2 Sat by Pulse 94 94 93 Oximetry 02/07/19 02/07/19 02/07/19 23:30 23:40 23:50 Temperature Pulse Rate 83 100 H 97 H Pulse Rate [ From Monitor] Respiratory 12 15 14 Rate Blood Pressure 63/41 44/29 98/70 Blood Pressure [Left] O2 Sat by Pulse 94 96 96 Oximetry 02/08/19 02/08/19 02/08/19 00:00 00:10 00:20 Temperature 97.5 F L Pulse Rate 97 H 110 H 108 H Pulse Rate [ 97 H From Monitor] Respiratory 16 27 H 24 Rate Blood Pressure 98/70 98/70 98/70 Blood Pressure 109/73 [Left] O2 Sat by Pulse 96 92 95 Oximetry 02/08/19 02/08/19 02/08/19 00:30 00:40 00:50 Temperature Pulse Rate 119 H 106 H 102 H Pulse Rate [ From Monitor] Respiratory 28 H 14 13 Rate Blood Pressure 109/73 51/35 51/35 Blood Pressure [Left] O2 Sat by Pulse 95 92 93 Oximetry 02/08/19 02/08/19 02/08/19 01:00 01:10 01:20 Temperature Pulse Rate 79 86 94 H Pulse Rate [ From Monitor] Respiratory 11 L 12 12 Rate Blood Pressure 112/83 112/83 112/83 Blood Pressure [Left] O2 Sat by Pulse 96 97 97 Oximetry 02/08/19 02/08/19 02/08/19 01:30 01:40 01:50 Temperature Pulse Rate 95 H 91 H 97 H Pulse Rate [ From Monitor] Respiratory 11 L 11 L 12 Rate Blood Pressure 120/81 112/83 112/83 Blood Pressure [Left] O2 Sat by Pulse 98 99 99 Oximetry 02/08/19 02/08/19 02/08/19 02:00 02:10 02:20 Temperature Pulse Rate 94 H 96 H 96 H Pulse Rate [ From Monitor] Respiratory 25 H 12 13 Rate Blood Pressure 95/73 95/73 95/73 Blood Pressure [Left] O2 Sat by Pulse 98 96 95 Oximetry 02/08/19 02/08/19 02/08/19 02:30 02:40 02:50 Temperature Pulse Rate 93 H 85 86 Pulse Rate [ From Monitor] Respiratory 13 13 13 Rate Blood Pressure 95/69 95/69 95/73 Blood Pressure [Left] O2 Sat by Pulse 94 94 94 Oximetry 02/08/19 02/08/19 02/08/19 03:00 03:10 03:20 Temperature Pulse Rate 78 85 86 Pulse Rate [ From Monitor] Respiratory 12 13 12 Rate Blood Pressure 96/71 96/71 96/71 Blood Pressure [Left] O2 Sat by Pulse 95 95 98 Oximetry 02/08/19 02/08/19 02/08/19 03:30 03:40 03:50 Temperature Pulse Rate 92 H 97 H 91 H Pulse Rate [ From Monitor] Respiratory 13 15 17 Rate Blood Pressure 96/71 124/88 124/88 Blood Pressure [Left] O2 Sat by Pulse 98 98 97 Oximetry 02/08/19 02/08/19 02/08/19 04:00 04:10 04:20 Temperature Pulse Rate 92 H 91 H 82 Pulse Rate [ 97 H From Monitor] Respiratory 13 22 14 Rate Blood Pressure 90/66 104/73 90/66 Blood Pressure [Left] O2 Sat by Pulse 97 97 98 Oximetry 02/08/19 02/08/19 02/08/19 04:30 04:40 04:50 Temperature Pulse Rate 113 H 124 H 106 H Pulse Rate [ From Monitor] Respiratory 20 44 H 26 H Rate Blood Pressure 90/66 90/66 90/66 Blood Pressure [Left] O2 Sat by Pulse 93 90 84 Oximetry 02/08/19 02/08/19 02/08/19 04:53 05:00 05:10 Temperature 97.8 F Pulse Rate 87 108 H Pulse Rate [ From Monitor] Respiratory 16 21 Rate Blood Pressure 90/66 90/66 Blood Pressure 104/73 [Left] O2 Sat by Pulse 97 92 94 Oximetry 02/08/19 02/08/19 02/08/19 05:20 05:30 05:40 Temperature Pulse Rate 94 H 73 Pulse Rate [ From Monitor] Respiratory 21 10 L Rate Blood Pressure 90/66 122/88 122/88 Blood Pressure [Left] O2 Sat by Pulse 93 97 99 Oximetry 02/08/19 02/08/19 02/08/19 05:50 06:00 06:10 Temperature Pulse Rate 81 91 H 75 Pulse Rate [ From Monitor] Respiratory 14 11 L 9 L Rate Blood Pressure 122/88 117/77 117/77 Blood Pressure [Left] O2 Sat by Pulse 97 98 Oximetry 02/08/19 02/08/19 06:20 08:19 Temperature Pulse Rate 83 Pulse Rate [ From Monitor] Respiratory 10 L Rate Blood Pressure 117/77 Blood Pressure [Left] O2 Sat by Pulse 97 97 Oximetry - General Appearance General appearance: well-developed, well-nourished, appears stated age, other (no distress) EENT: ATNC, PERRL, hearing intact, vision intact Neck: supple Respiratory: Present: Clear to Ascultation Cardiology: regular, S1S2, no murmurs Gastrointestinal: normoactive bowel sounds, no tenderness, no distended Integumentary: no rash, warm and dry Neurologic: no focal deficit, no asterixis Musculoskeletal: other (no edema) - Lab 02/08/19 08:44 02/08/19 05:18 Most recent lab results Calcium 9.1 mg/dL (8.4-10.2) 02/08/19 05:18 Phosphorus 2.90 mg/dL (2.5-4.5) 02/08/19 05:18 Magnesium 1.80 mg/dL (1.7-2.3) 02/08/19 05:18 56.9 mg/dL (0.1-20.0) H 02/07/19 04:00 12 mmol/L 02/07/19 04:00 Medications & Allergies - Medications Allergies/Adverse Reactions: Allergies TORRIE INHIBITOR Allergy (Uncoded 03/22/14 15:42) Swelling IVP DYE Allergy (Uncoded 03/22/14 15:42) Itching Home Medications: Home Medications Medication Instructions Recorded Confirmed Last Taken Type Rosuvastatin Calcium [Crestor] 10 mg PO DAILY 10/17/18 02/06/19 Unknown History amLODIPine [Norvasc] 10 mg PO DAILY 10/17/18 02/06/19 Unknown History traZODone [Desyrel] 50 mg PO QHS 10/17/18 02/06/19 Unknown History Apixaban [Eliquis] 5 mg PO BID #60 tablet 10/26/18 02/06/19 Unknown Rx Furosemide [Lasix TAB] 40 mg PO QDAY #30 tablet 10/26/18 02/06/19 Unknown Rx Potassium Chloride 10 meq PO QDAY #30 capsule.er 10/26/18 02/06/19 Unknown Rx Baclofen [Lioresal] 10 mg PO TID 02/06/19 02/06/19 Unknown History Diclofenac 1% [Diclofenac 1% 4 gm TP BID 02/06/19 02/06/19 Unknown History topical gel] Pantoprazole [Protonix] 40 mg PO QDAY 02/06/19 02/06/19 Unknown History QUEtiapine [SEROquel] 300 mg PO HS 02/06/19 02/06/19 Unknown History Active Medications: Generic Name Dose Route Start Last Admin Trade Name Freq PRN Reason Stop Dose Admin Albuterol 2.5 mg 02/06/19 15:49 02/07/19 14:15 Proventil IH 2.5 mg Q3HRT PRN Administration Shortness Of Breath Apixaban 5 mg 02/06/19 22:00 02/07/19 22:21 Eliquis PO Not Given BID REPLACED BY [facility] Protocol Atorvastatin Calcium 20 mg 02/06/19 22:00 02/07/19 22:19 Lipitor PO 20 mg QHS [facility]RON Administration Baclofen 10 mg 02/06/19 20:00 02/07/19 20:19 Lioresal PO 10 mg TID [facility] Administration Diclofenac Sodium 0.8 applic 02/06/19 22:00 02/07/19 22:21 Diclofenac 1% TP Not Given BID REPLACED BY [facility] Midodrine 10 mg 02/07/19 12:00 02/07/19 18:58 Proamatine PO 10 mg TID@0800,1200,1600 [facility]RON Administration Nicotine 14 mg 02/06/19 23:15 02/07/19 09:01 Habitrol TD 14 mg QDAY [facility]RON Administration Pantoprazole Sodium 40 mg 02/07/19 10:00 02/07/19 09:00 Protonix PO 40 mg QDAY [facility] Administration Potassium Chloride 10 meq 02/07/19 10:00 02/07/19 09:00 K-Dur PO 10 meq QDAY [facility] Administration Quetiapine Fumarate 300 mg 02/06/19 22:00 02/07/19 22:19 Seroquel PO 300 mg HS [facility] Administration Simethicone 80 mg 02/07/19 12:00 Mylicon PO PC PRN Gas pain Sodium Chloride 10 ml 02/06/19 22:00 02/07/19 22:22 Sodium Chloride Flush Syringe 10 Ml IV 10 ml BID [facility]RON Administration Sodium Chloride 10 ml 02/06/19 15:49 Sodium Chloride Flush Syringe 10 Ml IV PRN PRN LINE FLUSH Trazodone HCl 50 mg 02/06/19 22:00 02/07/19 22:20 Desyrel PO 50 mg QHS CAMRON Administration
[2019-02-08] MEDS: LIORESAL PO SCH ×3 (10:10→21:30)
[2019-02-08] MEDS: PROAMATINE PO SCH ×3 (10:10→19:36)
[2019-02-08] MEDS: PROTONIX PO SCH ×2 (10:11→21:44)
[2019-02-08] MEDS: K-DUR PO SCH (10:11)
[2019-02-08] MEDS: ELIQUIS PO SCH ×2 (10:11→21:30)
[2019-02-08] MEDS: DICLOFENAC 1% TP SCH (10:17)
[2019-02-08] MEDS: SODIUM CHLORIDE FLUSH SYRINGE 10 ML IV SCH ×3 (10:38→21:51)
[2019-02-08] MEDS: HABITROL TD SCH (10:38)
[2019-02-08] MEDS ORDERED: NACL 0.9% 1000 ML 1,000 ML IV SCH (12:00)
[2019-02-08] MEDS ORDERED: XYLOCAINE MPF 2% ONE (13:00)
--- NOTE | 2019-02-08 16:37 | Anesthesia Day of Surgery ---
Anesthesia Day of Surgery - Day of Surgery Patient Examined: Yes Patient H&P Reviewed: Yes Patient is NPO: Yes
[2019-02-08] MEDS ORDERED: DIPRIVAN 10 MG/ML IV ONE ×2 (16:40)
--- NOTE | 2019-02-08 17:00 | Post Operative Note ---
Pre-op diagnosis: rectal bleeding Post-op diagnosis: same Findings: Colon: medium/large internal hemorrhoids - otherwise benign Procedure: colonoscopy Anesthesia: MAC Surgeon: ELIZABETH BARRY Estimated blood loss: none Pathology: list Specimen disposition: to lab Condition: stable Disposition: floor
--- NOTE | 2019-02-08 17:47 | Operative Report ---
PROCEDURE: Colonoscopy. INDICATION: 1. Rectal bleeding. 2. Anemia. MEDICATIONS: Propofol per [employer]GER. COMPLICATIONS: None. DESCRIPTION OF PROCEDURE: The patient was brought to the procedure suite. The patient had the procedure discussed with her at length. All risks, complications, and benefits discussed after which the patient signed for the procedure performed. The patient was placed in left lateral decubitus position. Rectal exam performed prior to insertion of the scope. After adequate sedation medication as above, scope was inserted into the rectum and brought to the level of cecum. Ileocecal valve and appendiceal orifice, cecal strap were adequately visualized. Colonoscope was then removed and mucosa of colon completely and adequately visualized. Prep quality for this procedure was fair. The patient's vital signs remained stable throughout the procedure. FINDINGS: There were no mass lesions, polyps, or diverticula noted during this procedure. Retroflexion view performed in the rectum showed medium to large internal hemorrhoids. The patient tolerated the procedure well. No complications during the procedure. IMPRESSION: 1. Internal hemorrhoids. 2. Otherwise, normal colonoscopy. RECOMMENDATIONS: 1. Follow hematocrit and transfuse as needed. 2. Anusol-HC suppositories b.i.d. 3. Advanced diet. 4. Okay to discharge from GI standpoint. JOB# [id number] CAB/NTS
[2019-02-08] MEDS: DESYREL PO SCH (21:31)
[2019-02-08] MEDS: MYLICON PO PRN (21:50)
[2019-02-09] MEDS: DICLOFENAC 1% TP SCH ×2 (00:11→11:09)
[2019-02-09 06:05] VITALS: BP 95/64
[2019-02-09 06:38] LABS: Calcium 8.5 mg/dL (8.4-10.2)
[2019-02-09] MEDS: LIORESAL PO SCH ×2 (08:49→13:07)
[2019-02-09] MEDS: PROAMATINE PO SCH ×2 (08:49→12:26)
[2019-02-09] MEDS: MYLICON PO PRN (08:52)
--- NOTE | 2019-02-09 09:59 | Progress Note ---
Assessment and Plan 1. Acute kidney injury: Vasomotor / hemodynamic SULY superimposed on CKD stage 3 in the setting of volume depletion. Unilateral kidney. Renal function has improved. Monitor renal function. Avoid nephrotoxic agents. Meds dosage based on GFR. 2. FEN: Volume depletion, treated. Hypokalemia, improved. Monitor lytes. 3. Rectal bleeding: Follow H/H. S/p EGD and Colonoscopy. 4. H/o CHF: Appears compensated. 5. Orthostatic hypotension: Continue Midodrine. D/w patient about stopping BP meds as home. LE compression stockings. 6. H/o DVT: On Eliquis. Patient has an appt to see me next month. Subjective Date of service: 02/09/19 Interval history: Patient was seen and examined at the bedside. Doing better. Objective - Vital Signs Vital signs: Vital Signs - 12hr 02/08/19 02/08/19 02/09/19 22:00 22:55 05:18 Temperature 98.3 F 98.4 F Pulse Rate 91 H 95 H Pulse Rate [ 98 H From Monitor] Respiratory 20 20 16 Rate Respiratory 20 Rate [Low Back] Blood Pressure 96/63 95/64 O2 Sat by Pulse 96 93 92 Oximetry - General Appearance General appearance: well-developed, well-nourished, appears stated age, other (no distress) EENT: ATNC, PERRL, mucous membranes moist, hearing intact, vision intact Neck: supple Respiratory: Present: Clear to Ascultation Cardiology: regular, S1S2, no murmurs Gastrointestinal: normoactive bowel sounds, no tenderness, no distended Integumentary: no rash, warm and dry Neurologic: no focal deficit, no asterixis, alert and oriented x3 Musculoskeletal: other (Trace LE edema noted) Psychiatric: cooperative - Lab 02/08/19 08:44 02/09/19 06:00 Most recent lab results Calcium 8.5 mg/dL (8.4-10.2) 02/09/19 06:00 Phosphorus 2.90 mg/dL (2.5-4.5) 02/08/19 05:18 Magnesium 1.80 mg/dL (1.7-2.3) 02/08/19 05:18 56.9 mg/dL (0.1-20.0) H 02/07/19 04:00 12 mmol/L 02/07/19 04:00 Medications & Allergies - Medications Allergies/Adverse Reactions: Allergies TORRIE INHIBITOR Allergy (Uncoded 03/22/14 15:42) Swelling IVP DYE Allergy (Uncoded 03/22/14 15:42) Itching Home Medications: Home Medications Medication Instructions Recorded Confirmed Last Taken Type Rosuvastatin Calcium [Crestor] 10 mg PO DAILY 10/17/18 02/06/19 Unknown History traZODone [Desyrel] 50 mg PO QHS 10/17/18 02/06/19 Unknown History Apixaban [Eliquis] 5 mg PO BID #60 tablet 10/26/18 02/06/19 Unknown Rx Baclofen [Lioresal] 10 mg PO TID 02/06/19 02/06/19 Unknown History Diclofenac 1% [Diclofenac 1% 4 gm TP BID 02/06/19 02/06/19 Unknown History topical gel] Pantoprazole [Protonix TAB] 40 mg PO QDAY 02/06/19 02/06/19 Unknown History QUEtiapine [SEROquel] 300 mg PO HS 02/06/19 02/06/19 Unknown History Midodrine [Proamatine] 10 mg PO TID@0800,1200,1600 #90 02/09/19 Unknown Rx tablet Nicotine [Habitrol] 14 mg TD QDAY #7 patch 02/09/19 Unknown Rx cephALEXin [Keflex] 500 mg PO Q8HR #21 cap 02/09/19 Unknown Rx Active Medications: Generic Name Dose Route Start Last Admin Trade Name Freq PRN Reason Stop Dose Admin Albuterol 2.5 mg 02/06/19 15:49 02/07/19 14:15 Proventil IH 2.5 mg Q3HRT PRN Administration Shortness Of Breath Apixaban 5 mg 02/06/19 22:00 02/08/19 21:30 Eliquis PO 5 mg BID CAMRON Administration Protocol Atorvastatin Calcium 20 mg 02/06/19 22:00 02/08/19 21:30 Lipitor PO 20 mg QHS CAMRON Administration Baclofen 10 mg 02/06/19 20:00 02/09/19 08:49 Lioresal PO 10 mg TID CAMRON Administration Diclofenac Sodium 0.8 applic 02/06/19 22:00 02/09/19 00:11 Diclofenac 1% TP Not Given BID CAMRON Sodium Chloride 1,000 mls @ 50 mls/hr 02/08/19 12:00 02/08/19 12:39 Nacl 0.9% 1000 Ml IV 50 mls/hr DIRECT CAMRON Administration Ceftriaxone Sodium 1 gm in 50 mls @ 100 mls/hr 02/09/19 11:00 Rocephin/Ns 1 Gm/50 Ml IV Q24HR [facility]RON Protocol Midodrine 10 mg 02/07/19 12:00 02/09/19 08:49 Proamatine PO 10 mg TID@0800,1200,1600 CAMRON Administration Nicotine 14 mg 02/06/19 23:15 02/08/19 10:38 Habitrol TD 14 mg QDAY [facility] Administration Pantoprazole Sodium 40 mg 02/07/19 10:00 02/08/19 21:44 Protonix PO 40 mg QDAY [facility] Administration Potassium Chloride 10 meq 02/07/19 10:00 02/08/19 10:11 K-Dur PO Not Given QDAY CAMRON Quetiapine Fumarate 300 mg 02/06/19 22:00 02/08/19 21:30 Seroquel PO 300 mg HS CAMRON Administration Simethicone 80 mg 02/07/19 12:00 02/09/19 08:52 Mylicon PO 80 mg PC PRN Administration Gas pain Sodium Chloride 10 ml 02/06/19 22:00 02/08/19 21:51 Sodium Chloride Flush Syringe 10 Ml IV 10 ml BID [facility]RON Administration Sodium Chloride 10 ml 02/06/19 15:49 Sodium Chloride Flush Syringe 10 Ml IV PRN PRN LINE FLUSH Trazodone HCl 50 mg 02/06/19 22:00 02/08/19 21:31 Desyrel PO 50 mg QHS [facility]ORN Administration
--- NOTE | 2019-02-09 10:10 | Discharge Summary ---
Providers - Providers Date of Admission: 02/06/19 15:49 Date of discharge: 02/09/19 Attending physician: ZION PAL MD 02/06/19 15:43 Consult to Physician [CONS] Stat Comment: Consulting Provider: ELIZABETH BARRY Physician Instructions: Reason For Exam: GI bleed 02/06/19 15:46 Consult to Physician [CONS] Routine Comment: Consulting Provider: REANNA NELSON Physician Instructions: Reason For Exam: renal failure 02/07/19 10:50 Physical Therapy Evaluation and Treat [CONS] Routine Comment: Reason For Exam: fall Primary care physician: JUDY CARDENAS NP Hospitalization Reason for admission: GI bleed, hypotension Condition: Stable Pertinent studies: Lumbar x-ray IMPRESSION: There is mild superior endplate compression fracture of L1 Procedures: colonoscopy; no active bleeding, medium/large internal haemorrhoids Hospital course: 58 YO Female with HTN, MO, Obesity Hypoventilation, Diastolic CHF, DVT/PE S/P IVC Filter Placement on Therapeutic Anticoagulation with Xarelto, COPD, Nicotine Dependence, RCC S/P Nephrectomy, Chronic Pain Syndrome, ETOH Abuse, ETOH Gastritis presents to ED for evaluation. Pt states that she has experienced abdominal bloating and rectal bleeding over the past 3 days with worsening symptoms over the past 1 day. Pt transported to [facility] via private vehicle. Pt seen and evaluated in ED and found to have symptoms consistent with GI Bleed, Acute Renal Failure, . Pt initiated on supplemental oxygen and supportive care in ED with improvement in symptoms. Pt admitted to IMCU and initiated on GI bleeding protocol. Pt denies fever, chills, CP, Palpitations, NVD, Skin rash, prolonged travel/immobility, unilateral leg swelling, calf pain, productive cough,ingestion of food/water from new/different sources. Nephrology consulted in ED, GI consulted in ED. Previous admission on 10/17/18 reviewed. Patient was admitted to the floor and she was complaining of dizziness and her blood pressure was low, I stopped her blood pressure medication started on midodrine which normalized her blood pressure and dizziness resolved. She has consulted and did colonoscopy and found only hemmorrhoids. No further GI bleed and patient was stable. She said she failed and lumbar x-ray showed compression fracture as stated. Patient didn't have back pain or focal deficit. PT evaluated her and recommend to have home health. I discussed about the finding of the lumbar x-ray and if persistent back pain or weakness to follow spine surgeon as an O/P. Patient was hemodynamically stable and discharged home. Disposition: [id number] HOME UNDER HOME [facility] Time spent for discharge: 32 minutes - Discharge Diagnoses (1) GI bleed Status: Acute Qualifiers: GI bleed type/associated pathology: anorectal hemorrhage Qualified Code(s): K62.5 - Hemorrhage of anus and rectum (2) Hypotension Status: Acute Qualifiers: Hypotension type: hypotension due to drug Qualified Code(s): I95.2 - Hypotension due to drugs (3) ARF (acute renal failure) with tubular necrosis Status: Acute (4) Acidosis Status: Acute (5) Alcohol abuse Status: Acute (6) UTI (urinary tract infection) Status: Acute Qualifiers: Encounter type: initial encounter (7) Acute worsening of stage 3 chronic kidney disease Status: Acute Core Measure Documentation - Palliative Care Palliative Care/ Comfort Measures: Not Applicable - Core Measures Any of the following diagnoses?: none Exam - Physical Exam Narrative exam: Not in cardiopulmonary distress. The patient is obese. Vital signs as documented. Head exam is unremarkable. No scleral icterus . Neck is without jugular venous distension, thyromegaly, or carotid bruits. Lungs are clear to auscultation. Cardiac exam reveals regular rate and Rhythm. First and second heart sounds normal. No murmurs, rubs or gallops. Abdominal exam reveals normal bowel sounds, no masses, no organomegaly and no aortic enlargement. Extremities are nonedematous and both femoral and pedal pulses are normal. [employer]ER: Alert and oriented 3. No focal weakness. - Constitutional Vitals: Temp Pulse Resp BP Pulse Ox 98.4 F 95 H 16 95/64 92 02/09/19 05:18 02/09/19 05:18 02/09/19 05:18 02/09/19 05:18 02/09/19 05:18 Plan Activity: advance as tolerated Weight Bearing Status: Full Weight Bearing Diet: low cholesterol Follow up with: JUDY CARDENAS NP [Primary Care Provider] - 3-5 Days Forms: Accompanied Note Prescriptions: Nicotine [Habitrol] 14 mg TD QDAY #7 patch cephALEXin [Keflex] 500 mg PO Q8HR #21 cap Midodrine [Proamatine] 10 mg PO TID@0800,1200,1600 #90 tablet
[2019-02-09] MEDS ORDERED: ROCEPHIN/NS 1 GM/50 ML 1 GM/50 ML BAG IV SCH (11:00)
[2019-02-09] MEDS: HABITROL TD SCH (11:08)
[2019-02-09] MEDS: PROTONIX PO SCH (11:08)
[2019-02-09] MEDS: K-DUR PO SCH (11:08)
[2019-02-09] MEDS: SODIUM CHLORIDE FLUSH SYRINGE 10 ML IV SCH (11:09)
[2019-02-09] MEDS: ELIQUIS PO SCH (11:09)
--- NOTE | 2019-02-09 14:18 | Gastroenterology Progress Note ---
Assessment and Plan 1.GI bleed 2.hematochezia 3.substance abuse (tobacco/ETOH) 4.SULY -H/H WNL (12.9/39.5)- stable -continue to monitor H/H and transfuse as needed -patient with hx of PUD in 2013 (EGD showed antral ulcers) and GI bleed earlier this year (09/2018) 2/2 severe erosive hemorrhagic gastritis (tobacco/ETOH/NSAIDs) seen by EGD (no varices noted) who now presents with rectal bleeding with bright red blood mixed with stool, on TP, and in toilet x 3 days following an episode of diarrhea which required prolonged time sitting on the toilet (diarrhea now resolved). No hematemesis or melena. Patient reports intermittent BRBPR since last year (2017) and underwent a colonoscopy at [facility] that was unremarkable per her report (records unavailable). -s/p repeat colonoscopy yesterday that showed medium/large internal hemorrhoids, otherwise benign -clinically, patient is stable with no active signs of bleeding overnight or this am. Denies abd pain or N/V. Tolerating diet. -okay to resume Eliquis -continue PPI and supportive care -substance cessation discussed/encouraged with patient -patient okay to be d/c per GI standpoint. Will sign off, please call if needed. Subjective Date of service: 02/09/19 Principal diagnosis: GI bleed Interval history: No acute distress. No active signs of bleeding overnight or this am. Objective - Constitutional Vitals: Temp Pulse Resp BP Pulse Ox 98.4 F 75 20 95/64 92 02/09/19 05:18 02/09/19 10:00 02/09/19 10:00 02/09/19 05:18 02/09/19 05:18 General appearance: no acute distress - Respiratory Respiratory effort: normal - Cardiovascular Rhythm: regular - Gastrointestinal General gastrointestinal: Present: soft, non-tender, non-distended, normal bowel sounds - Neurologic Neurological: alert and oriented x3 - Labs CBC & Chem 7: 02/08/19 08:44 02/09/19 06:00 Labs: Laboratory Results - last 24 hr 02/09/19 06:00 Sodium 144 Potassium 4.2 Chloride 108.6 H Carbon Dioxide 26 Anion Gap 14 BUN 14 Creatinine 1.3 H Estimated GFR 42 BUN/Creatinine Ratio 11 Glucose 84 Calcium 8.5
== END 2019-02-09 13:15 | disposition home health service (06) | DRG 377 ==
LOC: ED 13:17 → CC1 15:49 → IMCU 19:38 → 3A 02-08 14:06
PROVIDERS: ADMIT Internal Medicine; ATTEND Internal Medicine
PROC: 0DJD8ZZ Inspection of Lower Intestinal Tract, Via Natural or Artificial Opening Endoscopic (ICD-10-PCS; principal; 2019-02-08)
DX: K62.5 Hemorrhage of anus and rectum (principal); N17.0 Acute kidney failure with tubular necrosis; I50.31 Acute diastolic (congestive) heart failure; E66.2 Morbid (severe) obesity with alveolar hypoventilation; I13.0 Hypertensive heart and chronic kidney disease with heart failure and stage 1 through stage 4 chronic kidney disease, or unspecified chronic kidney disease; N39.0 Urinary tract infection, site not specified; E87.6 Hypokalemia; J44.9 Chronic obstructive pulmonary disease, unspecified; K64.8 Other hemorrhoids; F17.210 Nicotine dependence, cigarettes, uncomplicated; R19.7 Diarrhea, unspecified; F10.10 Alcohol abuse, uncomplicated; N18.3 Chronic kidney disease, stage 3 (moderate); E78.5 Hyperlipidemia, unspecified; I95.2 Hypotension due to drugs; Z85.528 Personal history of other malignant neoplasm of kidney; Z68.36 Body mass index [BMI] 36.0-36.9, adult; Z86.718 Personal history of other venous thrombosis and embolism; Z86.711 Personal history of pulmonary embolism; Z79.01 Long term (current) use of anticoagulants
CPT/HCPCS: 36415; 72100; 80048; 80053; 81001; 82570; 83690; 83735; 84100; 84300; 85014; 85018; 85025; 85610; 85730; 86850; 86900; 86901; 87076; 87086; 87186; 93005; 93010; 94640; 94760; 96361; 96374; 99406; G0378; A9270-GY; C9113; J0696; J2704; J7030

== ENCOUNTER 2019-02-16 15:21 | Outpatient (CLI) | payer MEDICARE ==
--- NOTE | 2019-02-16 16:29 | Vascular Lab Report ---
BILATERAL DUPLEX DOPPLER LOWER EXTREMITY VEINS INDICATION: I82.403 ACUTE EMBOLISM AND THROMBOSIS OF UNSPECIFIED DEEP VEINS O TECHNIQUE: Duplex doppler imaging was performed through the veins of both lower extremities using ghada ous compression and other maneuvers. COMPARISON: None available. FINDINGS: Right Common Femoral vein: Negative. Right Superficial Femoral vein: Negative. Right Popliteal vein: Negative. Right Calf veins: Negative. Left Common Femoral vein: Negative. Left Superficial Femoral vein: Negative. Left Popliteal vein: No evidence of deep venous thrombosis. Reflux was seen. Left Calf veins: Negative. Additional findings: Bilateral popliteal cysts are seen. On the right an ovoid 3 cm minimally complex cyst is noted with a width of 1.5 cm and on the left and elongated 2.6 cm cyst is seen with a width of only 8 mm. Distal lower extremity edema is seen bilaterally. IMPRESSION: 1. No sonographic evidence for DVT in either lower extremity. 2. Bilateral popliteal cyst, greater on the right. 3. Mild evidence of venous insufficiency on the left. Signer Name: Antelmo Patel MD Signed: 02/16/2019 4:25 PM Workstation Name: [id number]
== END 2019-02-16 15:22 | disposition home or self-care (01) ==
LOC: VAS 15:21
PROVIDERS: ATTEND Internal Medicine Nephrology
DX: M71.22 Synovial cyst of popliteal space [Baker], left knee (principal); M71.21 Synovial cyst of popliteal space [Baker], right knee; I87.2 Venous insufficiency (chronic) (peripheral); I10 Essential (primary) hypertension; J44.9 Chronic obstructive pulmonary disease, unspecified; E66.9 Obesity, unspecified; Z90.89 Acquired absence of other organs
CPT/HCPCS: 93970

== ENCOUNTER 2019-06-05 06:27 | Emergency (ER) | payer MEDICARE ==
--- NOTE | 2019-06-05 06:43 | Emergency Department Report ---
ED General Adult HPI - General Stated complaint: CARDIAC ARREST Time Seen by Provider: 06/05/19 06:39 - History of Present Illness Initial comments: Patient presents to the emergency department via EMS for cardiac arrest. Patient arrives receiving chest compressions and being bagged. She was last seen normal at 7 PM last night per EMS. No other history is obtainable at the time of this note. -: unknown Improves with: none Worsens with: none Associated Symptoms: denies other symptoms Treatments Prior to Arrival: none - Related Data Home Medications Medication Instructions Recorded Confirmed Last Taken Rosuvastatin Calcium [Crestor] 10 mg PO DAILY 10/17/18 02/06/19 Unknown traZODone [Desyrel] 50 mg PO QHS 10/17/18 02/06/19 Unknown Baclofen [Lioresal] 10 mg PO TID 02/06/19 02/06/19 Unknown Diclofenac 1% [Diclofenac 1% 4 gm TP BID 02/06/19 02/06/19 Unknown topical gel] Pantoprazole [Protonix TAB] 40 mg PO QDAY 02/06/19 02/06/19 Unknown QUEtiapine [SEROquel] 300 mg PO HS 02/06/19 02/06/19 Unknown Previous Rx's Medication Instructions Recorded Last Taken Type Apixaban [Eliquis] 5 mg PO BID #60 tablet 10/26/18 Unknown Rx Midodrine [Proamatine] 10 mg PO TID@0800,1200,1600 #90 02/09/19 Unknown Rx tablet Nicotine [Habitrol] 14 mg TD QDAY #7 patch 02/09/19 Unknown Rx cephALEXin [Keflex] 500 mg PO Q8HR #21 cap 02/09/19 Unknown Rx Allergies Allergy/AdvReac Type Severity Reaction Status Date / Time [employer] Allergy Swelling Uncoded 03/22/14 15:42 IVP DYE Allergy Itching Uncoded 03/22/14 15:42 ED Review of Systems ROS: Stated complaint: CARDIAC ARREST Other details as noted in HPI Comment: Unobtainable due to pts medical conditions ED Past Medical Hx - Past Medical History Hx Hypertension: Yes Hx Congestive Heart Failure: No Hx Diabetes: No Hx Deep Vein Thrombosis: Yes Hx Pulmonary Embolism: Yes Hx Asthma: No Hx COPD: Yes - Surgical History Additional Surgical History: Tonsilectomy, Nephrectomy - Social History Smoking Status: Current Every Day Smoker - Medications Home Medications: Home Medications Medication Instructions Recorded Confirmed Last Taken Type Rosuvastatin Calcium [Crestor] 10 mg PO DAILY 10/17/18 02/06/19 Unknown History traZODone [Desyrel] 50 mg PO QHS 10/17/18 02/06/19 Unknown History Apixaban [Eliquis] 5 mg PO BID #60 tablet 10/26/18 02/06/19 Unknown Rx Baclofen [Lioresal] 10 mg PO TID 02/06/19 02/06/19 Unknown History Diclofenac 1% [Diclofenac 1% 4 gm TP BID 02/06/19 02/06/19 Unknown History topical gel] Pantoprazole [Protonix TAB] 40 mg PO QDAY 02/06/19 02/06/19 Unknown History QUEtiapine [SEROquel] 300 mg PO HS 02/06/19 02/06/19 Unknown History Midodrine [Proamatine] 10 mg PO TID@0800,1200,1600 #90 02/09/19 Unknown Rx tablet Nicotine [Habitrol] 14 mg TD QDAY #7 patch 02/09/19 Unknown Rx cephALEXin [Keflex] 500 mg PO Q8HR #21 cap 02/09/19 Unknown Rx ED Physical Exam - General General appearance: other (patient is being bagged via BVM) - Eye Eye exam: Present: other (pupils are fixed) - ENT ENT exam: Present: mucous membranes dry - Respiratory Respiratory exam: Present: other (lung sounds with bagging by BVM) - Cardiovascular Cardiovascular Exam: Present: other (asystole) - GI/Abdominal GI/Abdominal exam: Present: soft - Extremities Exam Extremities exam: Present: other (patient's extremities are stiff on exam) - Neurological Exam Neurological exam: Present: other (GCS of 3) - Skin Skin exam: Present: other (patient is cold to touch) ED Medical Decision Making - Medical Decision Making Time of is 6:30 AM Critical care attestation.: If time is entered above; I have spent that time in minutes in the direct care of this critically ill patient, excluding procedure time. ED Disposition Clinical Impression: Cardiac arrest Disposition: [id number] Is pt being admited?: No Does the pt Need Aspirin: No Condition: Stable
== END 2019-06-05 11:05 ==
LOC: ED 06:27
DX: I46.9 Cardiac arrest, cause unspecified (principal); F17.200 Nicotine dependence, unspecified, uncomplicated; I10 Essential (primary) hypertension; J44.9 Chronic obstructive pulmonary disease, unspecified; Z86.718 Personal history of other venous thrombosis and embolism; Z86.711 Personal history of pulmonary embolism; Z90.89 Acquired absence of other organs; Z91.041 Radiographic dye allergy status; Z79.899 Other long term (current) drug therapy
CPT/HCPCS: 99285